=== PATIENT | female | born 1940 | race Caucasian/White ===

== ENCOUNTER 2017-02-02 14:20 | Emergency (ER) | payer MEDICARE, OTHER ==
--- NOTE | 2017-02-02 15:34 | EDM.PDOC ---
ED HPI GENERAL MEDICAL PROBLEM - General Chief Complaint: Abdominal Pain Stated Complaint: KIDNEY ISSUES Time Seen by Provider: 02/02/17 14:40 Source of Information: Reports: Patient, Family History Limitations: Reports: No Limitations - History of Present Illness INITIAL COMMENTS - FREE TEXT/NARRATIVE: 77-year-old female started on an antibiotic 2 days ago for a urinary tract infection is having some persistent dysuria and a full sensation to her bladder. No fevers or chills, no nausea or vomiting. She was complaining to her family today so they brought her in for an evaluation. A culture of the urine is pending. They also thought they saw some bleeding from either the perineal area or rectum or vaginal, they weren't sure. 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: Psychiatric History: Reports: Alzheimers Disease, Anxiety, Dementia, Depression Endocrine/Metabolic History: Reports: Hypothyroidism Social & Family History - Tobacco Use Smoking Status *Q: Unknown Ever Smoked ED ROS GENERAL - Review of Systems Review Of Systems: See Below Constitutional: Denies: Fever, Chills HEENT: Reports: Other (Very hard of hearing) Respiratory: Denies: Shortness of Breath GI/Abdominal: Reports: Abdominal Pain, Distension : Reports: Dysuria, Frequency, Urgency Musculoskeletal: Reports: Back Pain (Chronic and recurring, midline) Skin: Reports: No Symptoms Neurological: Reports: Confusion, Other (Hard of hearing) ED EXAM, GI/ABD - Physical Exam Exam: See Below Exam Limited By: No Limitations General Appearance: Alert, No Apparent Distress Respiratory/Chest: No Respiratory Distress, Lungs Clear GI/Abdominal Exam: Soft, Other (Some mild discomfort to palpation in the suprapubic area, no bladder distention) Neurological: Alert, Oriented, No Motor/Sensory Deficits Psychiatric: Normal Affect, Normal Mood Skin Exam: Warm, Dry Course - Vital Signs Last Recorded V/S: Last Vital Signs Temp 96.9 F 02/02/17 16:27 Pulse 56 L 02/02/17 16:27 Resp 15 02/02/17 16:27 BP 103/66 02/02/17 16:27 Pulse Ox 97 02/02/17 16:27 - Orders/Labs/Meds Labs: Laboratory Tests 02/02/17 02/02/17 02/02/17 Range/Units 15:20 15:42 15:42 WBC 5.7 (4.5-11.0) K/uL RBC 4.13 (3.30-5.50) M/uL Hgb 12.3 (12.0-15.0) g/dL Hct 35.6 L (36.0-48.0) % MCV 86 (80-98) fL MCH 30 (27-31) pg MCHC 35 (32-36) % Plt Count 291 (150-400) K/uL Neut % (Auto) 51 (36-66) % Lymph % (Auto) 31 (24-44) % [place] % (Auto) 12 H (2-6) % Eos % (Auto) 6 H (2-4) % Baso % (Auto) 1 (0-1) % Sodium 129 L (140-148) mmol/L Potassium 3.7 (3.6-5.2) mmol/L Chloride 96 L (100-108) mmol/L Carbon Dioxide 28 (21-32) mmol/L Anion Gap 8.7 (5.0-14.0) mmol/L BUN 9 (7-18) mg/dL Creatinine 0.8 (0.6-1.0) mg/dL Est Cr Clr Drug Dosing 42.76 mL/min Estimated GFR (MDRD) > 60 (>60) Glucose 83 (74-106) mg/dL Calcium 8.6 (8.5-10.1) mg/dL Urine Color Yellow Urine Appearance Clear Urine pH 6.5 (4.5-8.0) Ur Specific [place] 1.015 (1.008-1.030) Urine Protein Negative (NEGATIVE) mg/dL Urine Glucose (UA) Normal (NEGATIVE) mg/dL Urine Ketones Negative (NEGATIVE) mg/dL Urine Occult Blood Moderate (NEGATIVE) Urine Nitrite Negative (NEGATIVE) Urine Bilirubin Negative (NEGATIVE) Urine Urobilinogen 1 (NORMAL) mg/dL Ur Leukocyte Esterase Negative (NEGATIVE) Urine RBC 10-20 H (0-5) Urine WBC Not seen (0-5) Ur Epithelial Cells Rare Amorphous Sediment Moderate Urine Bacteria Moderate Urine Mucus Not seen - Re-Assessments/Exams Free Text/Narrative Re-Assessment/Exam: 02/02/17 16:16 A mini catheter UA was obtained, there was no active bleeding around the urethra or bleeding from the vaginal area. A speculum or vaginal exam was not done. The UA did have 10-20 RBCs per high-power field and some bacteria, no white cells or inflammatory response seen. White count was normal. 02/02/17 16:17 BMP was also reassuring with normal kidney function. I asked the patient to give her antibiotic a few more days, gave her some Pyridium to take every 8 hours for bladder spasm and we'll see her back within 48-72 hours if not improving. Departure - Departure Time of Disposition: 16:33 Disposition: Home, Self-Care 01 Condition: Fair Clinical Impression: Dysuria Abdominal pain Qualifiers: Abdominal location: lower abdomen, unspecified Qualified Code(s): R10.30 - Lower abdominal pain, unspecified - Discharge Information Instructions: Urinary Tract Infection, Adult Referrals: PCP,None [Primary Care Provider] - Forms: ED Department Discharge Care Plan Goals: Continue your antibiotic for at least 2 more days, and use Pyridium as directed for bladder spasm and urgency. Recheck in 2-3 days if not improving satisfactorily, or return sooner if worsening such as fever or increased pain.
[2017-02-02 16:29] VITALS: BP 103/66
== END 2017-02-02 16:34 | disposition home or self-care (01) ==
LOC: JP.ED 14:20
DX: R30.0 Dysuria (principal); R10.30 Lower abdominal pain, unspecified; J44.9 Chronic obstructive pulmonary disease, unspecified; G30.9 Alzheimer's disease, unspecified; F02.80 Dementia in other diseases classified elsewhere, unspecified severity, without behavioral disturbance, psychotic disturbance, mood disturbance, and anxiety; F41.9 Anxiety disorder, unspecified; F32.9 Major depressive disorder, single episode, unspecified; E03.9 Hypothyroidism, unspecified; Z91.040 Latex allergy status
CPT/HCPCS: 36415; 80048; 81001; 85025; 99283; 99284

== ENCOUNTER 2017-02-10 16:09 | Emergency (ER) | payer MEDICARE, OTHER ==
[2017-02-10] MEDS ORDERED: Sodium Chloride 0.9% 1,000 ML IV STA (16:53)
[2017-02-10] MEDS ORDERED: Sodium Chloride 0.9% 10 ML Syringe FLUSH PRN (16:53)
--- NOTE | 2017-02-10 17:03 | EDM.PDOC ---
ED HPI GENERAL MEDICAL PROBLEM - General Chief Complaint: Abdominal Pain Stated Complaint: BLADDER CAME FORM [facility] Time Seen by Provider: 02/10/17 16:26 Source of Information: Reports: Patient, Family, Old Records, Provider, RN Notes Reviewed History Limitations: Reports: Physical Impairment (Dementia) - History of Present Illness INITIAL COMMENTS - FREE TEXT/NARRATIVE: 77-year-old female presents emergency department today for ongoing pelvic and back pain she also is more confused than baseline. She was initially evaluated by her primary care provider and sent to the ED emergency department for further evaluations. 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: Neurological History: Reports: Other (See Below) (Dementia) Psychiatric History: Reports: Alzheimers Disease, Anxiety, Dementia, Depression Endocrine/Metabolic History: Reports: Hypothyroidism Social & Family History - Tobacco Use Smoking Status *Q: Unknown Ever Smoked ED ROS GENERAL - Review of Systems Review Of Systems: Unable To Obtain (Difficult to obtain secondary to dementia) ED EXAM, GI/ABD - Physical Exam Exam: See Below Exam Limited By: Physical Impairment General Appearance: Alert, No Apparent Distress Eyes: Bilateral: Normal Appearance Head: Normocephalic, Other (Does have edema and tenderness right occipital region) Neck: Normal Inspection, Supple, Non-Tender, Full Range of Motion Respiratory/Chest: No Respiratory Distress, Normal Breath Sounds, Decreased Breath Sounds Cardiovascular: No Murmur, Irregularly Irregular GI/Abdominal Exam: Soft, Non-Tender Extremities: Non-Tender, No Pedal Edema Course - Vital Signs Last Recorded V/S: Last Vital Signs Temp 97.7 F 02/10/17 16:31 Pulse 57 L 02/10/17 18:29 Resp 16 02/10/17 18:29 BP 131/70 02/10/17 18:29 Pulse Ox 97 02/10/17 18:29 - Orders/Labs/Meds Orders: Active Orders 24 hr Category Date Time Status Peripheral IV Care [RC] . DIRECTED Care 02/10/17 16:56 Active Abdomen Pelvis w Cont [CT] Urgent Exams 02/10/17 16:53 Taken Head wo Cont [CT] Stat Exams 02/10/17 16:57 Taken Iopamidol [Isovue-300 (61%)] Med 02/10/17 17:07 Active 63 ml IV . DIRECTED PRN Sodium Chloride 0.9% [Saline Flush] Med 02/10/17 16:53 Active 10 ml FLUSH ASDIRECTED PRN Peripheral IV Insertion Adult [OM.PC] Urgent Oth 02/10/17 16:53 Ordered Medication Orders Iopamidol (Isovue-300 (61%)) 63 ml IV . DIRECTED PRN PRN Reason: RADIOLOGY EXAM Stop: 02/11/17 17:08 Last Admin: 02/10/17 17:36 Dose: 100 ml Sodium Chloride (Saline Flush) 10 ml FLUSH ASDIRECTED PRN PRN Reason: Keep Vein Open Last Admin: 02/10/17 17:48 Dose: 10 ml Labs: Laboratory Tests 02/10/17 02/10/17 02/10/17 Range/Units 17:07 17:07 17:07 WBC 5.3 (4.5-11.0) K/uL RBC 3.99 (3.30-5.50) M/uL Hgb 11.8 L (12.0-15.0) g/dL Hct 34.4 L (36.0-48.0) % MCV 86 (80-98) fL MCH 30 (27-31) pg MCHC 34 (32-36) % Plt Count 326 (150-400) K/uL Neut % (Auto) 52 (36-66) % Lymph % (Auto) 30 (24-44) % [place] % (Auto) 12 H (2-6) % Eos % (Auto) 6 H (2-4) % Baso % (Auto) 1 (0-1) % Sodium 127 L (140-148) mmol/L Potassium 3.4 L (3.6-5.2) mmol/L Chloride 91 L (100-108) mmol/L Carbon Dioxide 31 (21-32) mmol/L Anion Gap 8.4 (5.0-14.0) mmol/L BUN 5 L (7-18) mg/dL Creatinine 0.6 (0.6-1.0) mg/dL Est Cr Clr Drug Dosing TNP Estimated GFR (MDRD) > 60 (>60) Glucose 91 (74-106) mg/dL Lactic Acid 1.0 (0.4-2.0) mmol/L Calcium 8.4 L (8.5-10.1) mg/dL Total Bilirubin 0.8 (0.2-1.0) mg/dL AST 24 (15-37) U/L ALT 19 (12-78) U/L Alkaline Phosphatase 83 (46-116) U/L Total Protein 6.3 L (6.4-8.2) g/dL Albumin 3.0 L (3.4-5.0) g/dL Globulin 3.3 (2.3-3.5) g/dL Albumin/Globulin Ratio 0.9 L (1.2-2.2) Lipase 138 (73-393) U/L Urine Color Urine Appearance Urine pH (4.5-8.0) Ur Specific [place] (1.008-1.030) Urine Protein (NEGATIVE) mg/dL Urine Glucose (UA) (NEGATIVE) mg/dL Urine Ketones (NEGATIVE) mg/dL Urine Occult Blood (NEGATIVE) Urine Nitrite (NEGATIVE) Urine Bilirubin (NEGATIVE) Urine Urobilinogen (NORMAL) mg/dL Ur Leukocyte Esterase (NEGATIVE) Urine RBC (0-5) Urine WBC (0-5) Ur Epithelial Cells Amorphous Sediment Urine Bacteria Urine Mucus 02/10/17 Range/Units 18:29 WBC (4.5-11.0) K/uL RBC (3.30-5.50) M/uL Hgb (12.0-15.0) g/dL Hct (36.0-48.0) % MCV (80-98) fL MCH (27-31) pg MCHC (32-36) % Plt Count (150-400) K/uL Neut % (Auto) (36-66) % Lymph % (Auto) (24-44) % [place] % (Auto) (2-6) % Eos % (Auto) (2-4) % Baso % (Auto) (0-1) % Sodium (140-148) mmol/L Potassium (3.6-5.2) mmol/L Chloride (100-108) mmol/L Carbon Dioxide (21-32) mmol/L Anion Gap (5.0-14.0) mmol/L BUN (7-18) mg/dL Creatinine (0.6-1.0) mg/dL Est Cr Clr Drug Dosing Estimated GFR (MDRD) (>60) Glucose (74-106) mg/dL Lactic Acid (0.4-2.0) mmol/L Calcium (8.5-10.1) mg/dL Total Bilirubin (0.2-1.0) mg/dL AST (15-37) U/L ALT (12-78) U/L Alkaline Phosphatase (46-116) U/L Total Protein (6.4-8.2) g/dL Albumin (3.4-5.0) g/dL Globulin (2.3-3.5) g/dL Albumin/Globulin Ratio (1.2-2.2) Lipase (73-393) U/L Urine Color Yellow Urine Appearance Clear Urine pH 7.0 (4.5-8.0) Ur Specific [place] 1.005 L (1.008-1.030) Urine Protein Negative (NEGATIVE) mg/dL Urine Glucose (UA) Normal (NEGATIVE) mg/dL Urine Ketones Negative (NEGATIVE) mg/dL Urine Occult Blood Moderate (NEGATIVE) Urine Nitrite Negative (NEGATIVE) Urine Bilirubin Negative (NEGATIVE) Urine Urobilinogen Normal (NORMAL) mg/dL Ur Leukocyte Esterase Negative (NEGATIVE) Urine RBC 5-10 H (0-5) Urine WBC 0-5 (0-5) Ur Epithelial Cells Rare Amorphous Sediment Not seen Urine Bacteria Few Urine Mucus Few Meds: Medications Generic Name Dose Route Start Last Admin Trade Name Freq PRN Reason Stop Dose Admin Iopamidol 63 ml 02/10/17 17:07 02/10/17 17:36 Isovue-300 (61%) IV 02/11/17 17:08 100 ml . DIRECTED PRN Administration RADIOLOGY EXAM Sodium Chloride 10 ml 02/10/17 16:53 02/10/17 17:48 Saline Flush FLUSH 10 ml ASDIRECTED PRN Administration Keep Vein Open Discontinued Medications Generic Name Dose Route Start Last Admin Trade Name Freq PRN Reason Stop Dose Admin Sodium Chloride 1,000 mls @ 500 mls/hr 02/10/17 16:53 02/10/17 17:47 Normal Saline IV 08/14/17 18:52 500 mls/hr .BOLUS STA Administration Sodium Chloride 74 mls @ 3 mls/sec 02/10/17 17:15 02/10/17 17:36 Normal Saline IV 02/10/17 17:16 3 mls/sec ASDIRECTED WIN Administration Departure - Departure Time of Disposition: 19:00 Disposition: Home, Self-Care 01 Condition: Fair Clinical Impression: Sacral fracture Qualifiers: Encounter type: initial encounter Zone of sacrum fracture: unspecified portion of sacrum Fracture type: closed Qualified Code(s): S32.10XA - Unspecified fracture of sacrum, initial encounter for closed fracture - Discharge Information Forms: ED Department Discharge Additional Instructions: Use tramadol as needed for pain control for your fracture, recommend physical therapy in the assisted living center, please discuss with your primary care provider the need of colonoscopy, follow-up with your primary care in 5-7 days for evaluation call return to the emergency department with worsening of symptoms - My Orders Last 24 Hours: My Active Orders 02/10/17 16:53 Abdomen Pelvis w Cont [CT] Urgent Sodium Chloride 0.9% [Saline Flush] 10 ml FLUSH ASDIRECTED PRN Peripheral IV Insertion Adult [OM.PC] Urgent 02/10/17 16:56 Peripheral IV Care [RC] . DIRECTED 02/10/17 16:57 Head wo Cont [CT] Stat 02/10/17 17:07 Iopamidol [Isovue-300 (61%)] 63 ml IV . DIRECTED PRN - Assessment/Plan Last 24 Hours: My Active Orders 02/10/17 16:53 Abdomen Pelvis w Cont [CT] Urgent Sodium Chloride 0.9% [Saline Flush] 10 ml FLUSH ASDIRECTED PRN Peripheral IV Insertion Adult [OM.PC] Urgent 02/10/17 16:56 Peripheral IV Care [RC] . DIRECTED 02/10/17 16:57 Head wo Cont [CT] Stat 02/10/17 17:07 Iopamidol [Isovue-300 (61%)] 63 ml IV . DIRECTED PRN Plan: Assessment Acuity = acute Site and laterality = sacral fracture minimally displaced, thickening of sigmoid colon circumferential of unclear etiology, cocaine the patient with known history of dementia Etiology = sacral fracture secondary to fall Manifestations = pain Location of injury = Home Lab values = hemoglobin 11.8 consistent normochromic anemia sodium low at 127 consistent hyponatremia potassium low at 3.4 consistent hypokalemia albumin low at 3.[address] scan of the head was negative for any acute process CT scan of the abdomen describes the sacral fracture as well as the thickening of the sigmoid colon Plan I did review lab work and CT scan results with family they're going to discuss the need for colonoscopy with the family in contact primary care as needed for her sacral fracture recommending physical therapy at the assisted living center and tramadol for pain Patient was in agreement with the plan all questions were answered, they were instructed to return to the emergency department or call for worsening symptoms. This note was dictated using [email or web address] voice recognition software please call with any questions.
[2017-02-10] MEDS ORDERED: Iopamidol 612 MG/ML 100 ML Bottle IV PRN (17:07)
[2017-02-10 18:29] VITALS: BP 131/70
== END 2017-02-10 19:28 | disposition home or self-care (01) ==
LOC: JP.ED 16:09
DX: S32.10XA Unspecified fracture of sacrum, initial encounter for closed fracture (principal); J44.9 Chronic obstructive pulmonary disease, unspecified; G30.9 Alzheimer's disease, unspecified; F02.80 Dementia in other diseases classified elsewhere, unspecified severity, without behavioral disturbance, psychotic disturbance, mood disturbance, and anxiety; F41.9 Anxiety disorder, unspecified; F32.9 Major depressive disorder, single episode, unspecified; E03.9 Hypothyroidism, unspecified; Z91.040 Latex allergy status; W19.XXXA Unspecified fall, initial encounter
CPT/HCPCS: 36415; 70450; 74177; 80053; 81001; 83605; 83690; 85025; 96360; 96361; 99284; J7030; J7040; J7050; Q9967

== ENCOUNTER 2017-02-11 12:03 | Emergency (ER) | payer MEDICARE, OTHER ==
--- NOTE | 2017-02-11 15:15 | EDM.PDOC ---
[id number] [id number] NOT FEELING WELL Time Seen by Provider: 02/11/17 13:15 Source of Information: Reports: Patient, Correction Records History Limitations: Reports: No Limitations - History of Present Illness INITIAL COMMENTS - FREE TEXT/NARRATIVE: pt fell and ended up with a fracture in the sacrum. She was seen by Dr Officer yesterday. She was transfered from the assisted living to the shelter for care. She has a history of frequent infections. Onset: Today, Other (pt felt like her bladder was very full and she was uncomfortable with that. ) Duration: Hour(s):, Other ( She felt like her voiding was not as frequent. 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 ) : Reports: Urinary Retention Musculoskeletal: Reports: No Symptoms Skin: Reports: No Symptoms Neurological: Reports: Confusion ED EXAM, GENERAL - Physical Exam Exam: See Below Free Text/Narrative:: pt arrived concerned with pressure over her bladder. She was found to have a sacral fracture yesterday. Her bladder was scanned and she had 600-700 cc in her bladder. She got up on the commode and she was able to void nearly that amount. Her abdoman is no less tender. Exam Limited By: Other (pt is a poor historian.) General Appearance: Alert, Other ( some confusion) Ears: Normal TMs Nose: Normal Inspection Throat/Mouth: Normal Inspection Head: Atraumatic Neck: Normal Inspection Respiratory/Chest: No Respiratory Distress Cardiovascular: Regular Rate, Rhythm GI/Abdominal: Soft, Non-Tender, Other ( She is tender over the bladder area. ) (Female) Exam: Deferred Rectal (Female) Exam: Deferred Back Exam: Other ( tender over the very low back) Extremities: Normal Inspection Neurological: Alert, Other (pt is mildly confused. ) Course - Vital Signs Last Recorded V/S: Last Vital Signs Temp 36.4 C 02/11/17 14:58 Pulse 65 02/11/17 16:26 Resp 17 02/11/17 16:26 BP 140/72 02/11/17 16:26 Pulse Ox 96 02/11/17 16:26 - Orders/Labs/Meds Labs: Laboratory Tests 02/11/17 02/11/17 02/11/17 Range/Units 13:31 13:31 14:48 WBC 5.4 (4.5-11.0) K/uL RBC 3.92 (3.30-5.50) M/uL Hgb 11.6 L (12.0-15.0) g/dL Hct 34.3 L (36.0-48.0) % MCV 88 (80-98) fL MCH 30 (27-31) pg MCHC 34 (32-36) % Plt Count 332 (150-400) K/uL Neut % (Auto) 66 (36-66) % Lymph % (Auto) 20 L (24-44) % [place] % (Auto) 12 H (2-6) % Eos % (Auto) 2 (2-4) % Baso % (Auto) 1 (0-1) % Sodium 130 L (140-148) mmol/L Potassium 3.6 (3.6-5.2) mmol/L Chloride 95 L (100-108) mmol/L Carbon Dioxide 30 (21-32) mmol/L Anion Gap 8.6 (5.0-14.0) mmol/L BUN 7 (7-18) mg/dL Creatinine 0.5 L (0.6-1.0) mg/dL Est Cr Clr Drug Dosing 63.37 mL/min Estimated GFR (MDRD) > 60 (>60) Glucose 97 (74-106) mg/dL Calcium 8.4 L (8.5-10.1) mg/dL Total Bilirubin 0.7 (0.2-1.0) mg/dL AST 25 (15-37) U/L ALT 20 (12-78) U/L Alkaline Phosphatase 82 (46-116) U/L Total Protein 6.3 L (6.4-8.2) g/dL Albumin 3.0 L (3.4-5.0) g/dL Globulin 3.3 (2.3-3.5) g/dL Albumin/Globulin Ratio 0.9 L (1.2-2.2) Urine Color Yellow Urine Appearance Clear Urine pH 7.0 (4.5-8.0) Ur Specific [place] 1.010 (1.008-1.030) Urine Protein Negative (NEGATIVE) mg/dL Urine Glucose (UA) Normal (NEGATIVE) mg/dL Urine Ketones 15 H (NEGATIVE) mg/dL Urine Occult Blood Moderate (NEGATIVE) Urine Nitrite Negative (NEGATIVE) Urine Bilirubin Negative (NEGATIVE) Urine Urobilinogen Normal (NORMAL) mg/dL Ur Leukocyte Esterase Negative (NEGATIVE) Urine RBC 5-10 H (0-5) Urine WBC 0-5 (0-5) Ur Epithelial Cells Few Amorphous Sediment Not seen Urine Bacteria Few Urine Mucus Not seen Meds: Medications Discontinued Medications Generic Name Dose Route Start Last Admin Trade Name Jarredq PRN Reason Stop Dose Admin Acetaminophen 650 mg 02/11/17 18:04 02/11/17 18:50 Tylenol PO 02/11/17 18:05 650 mg NOW ONE Administration Levofloxacin 250 mg 02/11/17 15:18 02/11/17 16:07 Levaquin PO 02/11/17 15:19 250 mg ONETIME ONE Administration Phenazopyridine HCl 190 mg 02/11/17 18:03 02/11/17 18:50 Urinary Pain Relief PO 02/11/17 18:04 190 mg ONETIME ONE Administration - Re-Assessments/Exams Free Text/Narrative Re-Assessment/Exam: 02/11/17 18:05 pt had a urine that did not look real infected. She has had the feeling she needs to void frquently . She was found to have a sacral fracture yesterday. She did eat some soup and part of a sandwich. 02/12/17 18:15 pt was placed on levoquin 250 daily until her urine culture returns. Departure - Departure Time of Disposition: 15:23 Disposition: Home, Self-Care 01 Condition: Fair Clinical Impression: Urinary retention, Sacral fracture - Discharge Information Instructions: Acute Urinary Retention, Female, [id number] Referrals: Karen Edouard MD [Primary Care Provider] - Forms: ED Department Discharge Care Plan Goals: encourage fluids, encourage pt to void frequently urine culture pending, levoquin 250 daily until culture is back. Pyridium 100mg tid for 2 days for bladder pain
[2017-02-11] MEDS ORDERED: Levofloxacin 250 MG Tab PO ONE (15:18)
[2017-02-11 16:27] VITALS: BP 140/72
[2017-02-11] MEDS ORDERED: Phenazopyridine 95 MG Tab PO ONE (18:03)
[2017-02-11] MEDS ORDERED: Acetaminophen 325 MG Tab PO ONE (18:04)
== END 2017-02-11 19:04 | disposition home or self-care (01) ==
LOC: JP.ED 12:03
DX: R33.9 Retention of urine, unspecified (principal); S32.10XA Unspecified fracture of sacrum, initial encounter for closed fracture; J44.9 Chronic obstructive pulmonary disease, unspecified; G30.9 Alzheimer's disease, unspecified; F02.80 Dementia in other diseases classified elsewhere, unspecified severity, without behavioral disturbance, psychotic disturbance, mood disturbance, and anxiety; F41.9 Anxiety disorder, unspecified; F32.9 Major depressive disorder, single episode, unspecified; E03.9 Hypothyroidism, unspecified; Z91.040 Latex allergy status; W19.XXXA Unspecified fall, initial encounter
CPT/HCPCS: 36415; 51798; 80053; 81001; 85025; 87086; 99284; A9270; 99283

== ENCOUNTER 2017-02-17 07:29 | Day surgery (SDC) | payer MEDICARE, OTHER ==
[2017-02-17] MEDS ORDERED: Lactated Ringers 1,000 ML IV SCH (07:30)
[2017-02-17] MEDS ORDERED: fentaNYL 100 MCG/2 ML SDV ONE (08:01)
[2017-02-17] MEDS ORDERED: Midazolam 1 MG/ML 2 ML SDV ONE (08:01)
[2017-02-17] MEDS ORDERED: Propofol 200 MG/20 ML SDV ONE (08:01)
[2017-02-17 11:16] VITALS: BP 105/61
--- NOTE | 2017-02-18 07:45 | OR ---
DATE OF PROCEDURE: 02/17/2017 PREOPERATIVE DIAGNOSIS: Abnormal CAT scan, thickened sigmoid. POSTOPERATIVE DIAGNOSIS: Abnormal CAT scan, thickened sigmoid, and colitis at rectosigmoid. PROCEDURE: Colonoscopy to the cecum with biopsy of rectosigmoid at about 10 cm from the anal verge. ANESTHESIA: IV anesthesia with monitored anesthesia care. INDICATIONS: This 77-year-old white female had some abdominal pain last week. She had a CAT scan which showed a thickened distal sigmoid. A recommendation was for a colonoscopy. Her last colonoscopic exam apparently was done 2 to 3 years ago in what sounds like at [place], [place]. I counseled her in the presence of her daughter for the procedure including risks and alternatives, and they gave their informed consent to proceed. DESCRIPTION OF PROCEDURE: The patient was placed in the left lateral decubitus position. IV anesthesia was administered by the Anesthesia Service. Time-out was held. A rectal exam was performed, which was unremarkable. The flexible video Olympus colonoscope was introduced through her anus, up her rectum, and out her colon all the way to the cecum. Once the cecum was reached, the scope was slowly withdrawn, examining the mucosa throughout. The prep was fairly poor. No mucosal abnormalities were noted until we reached the rectosigmoid area. Here we saw a thickened colon with erythema suggestive of colitis. We obtained multiple biopsies of this area about 10 cm from the anal verge. The scope was retroflexedin the rectum with the most distal rectum appearing unremarkable. The scope was straightened and removed. She tolerated the procedure well. Poncho Armijo MD /[id number]
== END 2017-02-17 11:10 | disposition home or self-care (01) ==
LOC: JP.SDS 07:29
PROVIDERS: ATTEND Surgery
DX: K51.90 Ulcerative colitis, unspecified, without complications (principal); J44.9 Chronic obstructive pulmonary disease, unspecified; E03.9 Hypothyroidism, unspecified; F41.9 Anxiety disorder, unspecified; F32.9 Major depressive disorder, single episode, unspecified; Z91.040 Latex allergy status; Z98.890 Other specified postprocedural states
CPT/HCPCS: 45380; 88305; J2704; J3010; J7120; J2250

== ENCOUNTER 2017-02-27 08:44 | Emergency (ER) | payer MEDICARE, OTHER ==
--- NOTE | 2017-02-27 09:31 | EDM.PDOC ---
ED HPI GENERAL MEDICAL PROBLEM - General Chief Complaint: Gastrointestinal Problem Stated Complaint: NAUSA Time Seen by Provider: 02/27/17 09:05 Source of Information: Reports: EMS, Long-Term Records History Limitations: Reports: Other (Chronic confusion) - History of Present Illness INITIAL COMMENTS - FREE TEXT/NARRATIVE: 77-year-old correction patient, DNR/DNI developed emesis overnight and the nursing staff felt it looked "coffee ground" so sent her in for evaluation. She had one emesis in route, EMS crew did not have the impression it was blood. She still has some nausea and mild discomfort at this time but is otherwise stable. She feels like her abdomen has "pressure", no dysuria, no significant discomfort. No respiratory symptoms. Onset: Gradual (Developed overnight) Location: Reports: Abdomen Severity: Mild Associated Symptoms: Reports: Nausea/Vomiting. Denies: Chest Pain, Cough, Fever /Chills, Shortness of Breath Lower Abdominal Pain Score (Numeric/FACES): 3 - Related Data Allergies Allergy/AdvReac Type Severity Reaction Status Date / Time Latex, Natural Rubber Allergy Other Verified 02/17/17 07:50 Home Meds: Home Meds Acetaminophen [Tylenol Extra Strength] 500 mg PO Q6H PRN 02/14/17 [History] Albuterol [Ventolin HFA] 2 puff IH Q6H PRN 02/14/17 [History] Albuterol/Ipratropium [DuoNeb 3.0-0.5 MG/3 ML] 3 ml IH Q4H PRN 02/14/17 [History ] Aspirin [Children's Aspirin] 81 mg PO DAILY 02/14/17 [History] Biotin 5,000 mcg PO DAILY 02/14/17 [History] Calcium Carbonate/Vitamin D3 [Calcium 500 + Vit D Caplet] 1 tab PO BID 02/14/17 [History] Donepezil HCl [Aricept] 10 mg PO BEDTIME 02/14/17 [History] Fluticasone/Salmeterol [Advair Diskus 100-50] 1 puff INH BID 02/14/17 [History] L.acidoph,Paracasei, B.lactis [Probiotic] 1 tab PO BID 02/14/17 [History] Levothyroxine [Synthroid] 75 mcg PO ACBREAKFAST 02/14/17 [History] Mirtazapine [Remeron] 15 mg PO BEDTIME 02/14/17 [History] Sertraline [Zoloft] 25 mg PO DAILY 02/14/17 [History] Acetaminophen [Tylenol Extra Strength] 500 mg PO Q6H PRN 02/17/17 [History] Multivitamin [Multiple Vitamins] 1 tab PO BID 02/17/17 [History] Promethazine Hcl [IJD: Promethazine] 25 mg PO Q6H 02/17/17 [History] traMADol HCl [Tramadol HCl] 100 mg PO Q4H PRN 02/17/17 [History] Polyethylene Glycol 3350 [MiraLAX] 17 g PO ASDIRECTED PRN 02/27/17 [History] metroNIDAZOLE [Metronidazole] 250 mg PO TID 02/27/17 [History] Past Medical History HEENT History: Reports: Hard of Hearing, Impaired Vision Respiratory History: Reports: COPD Gastrointestinal History: Reports: Diverticulosis, GI Bleed, Other (See Below) Other Gastrointestinal History: colitis Other Genitourinary History: 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 SPECIALIST History: Reports: Musculoskeletal History: Reports: Other (See Below) Other Musculoskeletal History: osteopenia Neurological History: Reports: Other (See Below) Other Neuro History: mild cognitive Psychiatric History: Reports: Alzheimers Disease, Anxiety, Dementia, Depression Endocrine/Metabolic History: Reports: Hypothyroidism - Infectious Disease History Infectious Disease History: Reports: Chicken Pox, Measles - Past Surgical History HEENT Surgical History: Reports: Cataract Surgery GI Surgical History: Reports: Colonoscopy Social & Family History - Family History Family Medical History: Noncontributory - Tobacco Use Smoking Status *Q: Never Smoker Second Hand Smoke Exposure: No - Caffeine Use Caffeine Use: Reports: Coffee - Recreational Drug Use Recreational Drug Use: No ED ROS GENERAL - Review of Systems Review Of Systems: See Below Constitutional: Reports: Malaise. Denies: Fever, Chills HEENT: Reports: No Symptoms Respiratory: Denies: Shortness of Breath Cardiovascular: Denies: Chest Pain GI/Abdominal: Reports: Abdominal Pain (Pressure), Nausea, Vomiting. Denies: Diarrhea Skin: Reports: No Symptoms Neurological: Reports: No Symptoms ED EXAM, GENERAL - Physical Exam Exam: See Below Exam Limited By: No Limitations General Appearance: Alert, No Apparent Distress Eye Exam: Bilateral Eye: EOMI (No jaundice) Respiratory/Chest: No Respiratory Distress, Lungs Clear Cardiovascular: Regular Rate, Rhythm GI/Abdominal: Normal Bowel Sounds, No Distention, Tender (Patient acts uncomfortable with palpation across the lower abdomen, no guarding) Rectal (Female) Exam: Other (Rectal exam revealed a moderate rectal prolapse which was reduced easily. Digital exam revealed no stool in the colon and no active bleeding). No: Fecal Impaction Extremities: No: Pedal Edema Neurological: Alert Psychiatric: Normal Affect, Normal Mood Skin Exam: Warm, Dry Course - Vital Signs Last Recorded V/S: Last Vital Signs Temp 98.1 F 02/27/17 08:57 Pulse 74 02/27/17 11:12 Resp 16 02/27/17 11:12 BP 115/65 02/27/17 11:12 Pulse Ox 98 02/27/17 11:12 - Orders/Labs/Meds Labs: Laboratory Tests 02/27/17 02/27/17 Range/Units 09:25 09:25 WBC 5.1 (4.5-11.0) K/uL RBC 3.70 (3.30-5.50) M/uL Hgb 11.0 L (12.0-15.0) g/dL Hct 34.4 L (36.0-48.0) % MCV 93 (80-98) fL MCH 30 (27-31) pg MCHC 32 (32-36) % Plt Count 310 (150-400) K/uL Neut % (Auto) 65 (36-66) % Lymph % (Auto) 19 L (24-44) % White % (Auto) 10 H (2-6) % Eos % (Auto) 5 H (2-4) % Baso % (Auto) 1 (0-1) % Sodium 140 (140-148) mmol/L Potassium 4.1 (3.6-5.2) mmol/L Chloride 105 (100-108) mmol/L Carbon Dioxide 30 (21-32) mmol/L Anion Gap 5.0 (5.0-14.0) mmol/L BUN 8 (7-18) mg/dL Creatinine 0.6 (0.6-1.0) mg/dL Est Cr Clr Drug Dosing 52.26 mL/min Estimated GFR (MDRD) > 60 (>60) Glucose 97 (74-106) mg/dL Calcium 8.6 (8.5-10.1) mg/dL Total Bilirubin 0.4 (0.2-1.0) mg/dL AST 22 (15-37) U/L ALT 18 (12-78) U/L Alkaline Phosphatase 94 (46-116) U/L Total Protein 6.0 L (6.4-8.2) g/dL Albumin 2.9 L (3.4-5.0) g/dL Globulin 3.1 (2.3-3.5) g/dL Albumin/Globulin Ratio 0.9 L (1.2-2.2) - Re-Assessments/Exams Free Text/Narrative Re-Assessment/Exam: 02/27/17 09:31 CBC, CMP were obtained as well as a flat and upright abdomen. 02/27/17 10:18 Labs were unremarkable other than the hemoglobin slowly falling over the past month. Chemistry profile was normal. Flat and upright abdomen showed no sign of obstruction. The rectal prolapse was reduced without problem. It was discovered the patient was already scheduled for an abdominal ultrasound today because of ongoing urologic symptoms. The patient herself just wanted to go back home and didn't want any more tests. 02/27/17 10:53 Patient again tried to have a bowel movement and again experienced a prolapsed rectum. She wanted to try to reduce it herself, and I discussed this with surgery as well as her family. Reducing the prolapse when it recurs is reasonable treatment for the problem, but the patient and her family can meet with Dr. Caballero next week to discuss options and treatment expectations. She was discharged to get her abdominal ultrasound and ankle x-ray as ordered by another policy specialist. Departure - Departure Time of Disposition: 11:25 Disposition: DC/Tfer to [facility] Condition: Fair Clinical Impression: Rectal prolapse, Abdominal pain Nausea and vomiting Qualifiers: Vomiting type: unspecified Vomiting Intractability: non-intractable Qualified Code(s): R11.2 - Nausea with vomiting, unspecified - Discharge Information Instructions: Rectal Prolapse, Adult Referrals: PCP,None [Primary Care Provider] - Forms: ED Department Discharge Care Plan Goals: Reduce prolapse when it recurs, and recheck with Dr. Caballero next week to discuss treatment options.
--- NOTE | 2017-02-27 09:59 | CR ---
Abdomen 2V AP Flat Upright HISTORY: pain COMPARISON: CT scan 02/10/2017. FINDINGS: Bowel gas pattern is nonobstructive. No free air. No suspicious calcifications. Degenerativ e change and mild curvature of the lower lumbar spine. Impression: Negative abdomen.
[2017-02-27 11:13] VITALS: BP 115/65
== END 2017-02-27 11:25 ==
LOC: JP.ED 08:44
DX: K62.3 Rectal prolapse (principal); R11.2 Nausea with vomiting, unspecified; J44.9 Chronic obstructive pulmonary disease, unspecified; G30.9 Alzheimer's disease, unspecified; F02.80 Dementia in other diseases classified elsewhere, unspecified severity, without behavioral disturbance, psychotic disturbance, mood disturbance, and anxiety; F41.9 Anxiety disorder, unspecified; F32.9 Major depressive disorder, single episode, unspecified; Z98.49 Cataract extraction status, unspecified eye; Z79.82 Long term (current) use of aspirin; Z79.899 Other long term (current) drug therapy; Z91.040 Latex allergy status; M25.571 Pain in right ankle and joints of right foot; M25.471 Effusion, right ankle; R10.2 Pelvic and perineal pain; R39.89 Other symptoms and signs involving the genitourinary system
CPT/HCPCS: 36415; 73610-26-RT; 73610-RT; 74020; 74020-26; 76856; 76856-26; 80053; 85025; 99284; 99285

== ENCOUNTER 2017-05-08 09:47 | Inpatient (IN) | payer MEDICARE, OTHER ==
[2017-05-08] MEDS: Sodium Chloride 0.9% 1,000 ML IV SCH ×2 (11:09→16:22)
[2017-05-08] MEDS ORDERED: Glycopyrrolate 0.2 MG/ML 5 ML MDV ONE (11:16)
[2017-05-08] MEDS ORDERED: Ondansetron 4 MG/2 ML SDV ONE (11:16)
[2017-05-08] MEDS ORDERED: Propofol 200 MG/20 ML SDV ONE (11:16)
[2017-05-08] MEDS ORDERED: fentaNYL 250 MCG/5 ML SDV ONE (11:16)
[2017-05-08] MEDS ORDERED: Neostigmine Methylsulfate 1 MG/ML 5 ML Syringe ONE (11:16)
[2017-05-08] MEDS ORDERED: Dexamethasone 4 MG/ML SDV ONE (11:16)
[2017-05-08] MEDS ORDERED: Rocuronium 50 MG/5 ML Vial ONE (11:16)
[2017-05-08] MEDS ORDERED: metroNIDAZOLE/Normal Saline 500 MG in Premix Bag 1 BAG IV ONE (12:00)
[2017-05-08] MEDS ORDERED: ceFAZolin 2 GM in Sodium Chloride 0.9% 50 ML IV ONE (12:00)
[2017-05-08] MEDS ORDERED: ceFAZolin 2 GM in Premix Bag 1 BAG IV ONE (12:00)
[2017-05-08] MEDS ORDERED: fentaNYL/Normal Saline 600 MCG/30 ML PCA Vial IV PRN (12:30)
[2017-05-08] MEDS ORDERED: Naloxone 0.4 MG/ML SDV IV PRN (12:34)
[2017-05-08] MEDS ORDERED: Ketorolac 60 MG/2 ML SDV ONE (13:23)
[2017-05-08] MEDS ORDERED: Bupivacaine 0.5%/EPINEPHrine 1:200,000 50 ML MDV ONE (13:32)
[2017-05-08] MEDS ORDERED: diphenhydrAMINE 50 MG/ML SDV IVPUSH PRN (15:04)
[2017-05-08] MEDS ORDERED: Benzocaine/Cetylpyridinium/Menthol Lozenge MUCMEM PRN (15:04)
[2017-05-08] MEDS ORDERED: hydrOXYzine HCl 100 MG/2 ML SDV IM PRN (15:04)
[2017-05-08] MEDS ORDERED: Promethazine 25 MG/ML SDV IM PRN (15:04)
[2017-05-08] MEDS ORDERED: Sodium Chloride 0.9% 250 ML IV SCH (19:00)
[2017-05-08] MEDS: ceFAZolin 2 GM in Sodium Chloride 0.9% 50 ML IV SCH (20:16)
[2017-05-08] MEDS: Acetaminophen 1,000 MG in Premix Bag 1 BAG IV PRN (23:08)
[2017-05-09] MEDS ORDERED: Sodium Chloride 0.9% 250 ML IV SCH (02:15)
[2017-05-09] MEDS: Sodium Chloride 0.9% 1,000 ML IV SCH ×2 (05:03→19:09)
[2017-05-09] MEDS ORDERED: ceFAZolin 1 GM Vial ONE (05:04)
[2017-05-09] MEDS: ceFAZolin 2 GM in Sodium Chloride 0.9% 50 ML IV SCH (05:07)
[2017-05-09] MEDS ORDERED: Scopolamine 1.5 MG Transdermal Patch TRDERM PRN (08:30)
--- NOTE | 2017-05-09 09:04 | PN ---
DATE OF SERVICE: 05/09/2017 SUBJECTIVE: The patient is doing well. She is still pleasantly confused, which is her baseline. No nausea, vomiting, shortness of breath, or chest pain. There is reported of a small bowel movement. The patient denies passing gas, but due to the patient's confusion, this may or may not be accurate. OBJECTIVE: VITAL SIGNS: Stable. Temperature 99.3, blood pressure 140/86, pulse 66, respirations 18, 98% on room air. CARDIOVASCULAR: Regular rhythm and rate. RESPIRATORY: Lungs are clear to consultation bilaterally. ABDOMEN: Nondistended. Dressings are intact. LABORATORY DATA: Laboratory results show hemoglobin of 10.1. Basic metabolic panel is normal. ASSESSMENT: Status post colon resection. PLAN: 1. Hematology. Hemoglobin is stable, not actively bleeding. We will recheck hemoglobin on a p.r.n. basis. 2. Infectious disease. White blood cell count is elevated with elevated consistent with postoperative state/atelectasis. We will have the patient, the patient's family, and staff instructed on aggressive incentive spirometry. 3. Diet. We will start some Ensure. We will work on Entereg today. 4. General disposition. Need to ambulate the patient at least twice daily. 5. Urine output. Urine output is still marginal. We will continue Hayden catheter until this reaches adequate stage, which will probably in the next 24 hours. 6. Prophylaxis. The patient is to start on Lovenox, SCDs, ambulation, incentive spirometry, and early dietary initiation. 7. Discharge. Discharge planning along with physical therapy had been consulted to facilitate ambulation and early discharge. Сергей Caballero MD /[id number]
[2017-05-09] MEDS: Acetaminophen 1,000 MG in Premix Bag 1 BAG IV PRN (09:52)
[2017-05-09] MEDS: Enoxaparin 40 MG/0.4 ML Syringe SUBCUT SCH (09:52)
[2017-05-09] MEDS: Docusate Sodium 100 MG Cap PO SCH ×2 (09:53→20:12)
[2017-05-10] MEDS: Docusate Sodium 100 MG Cap PO SCH ×2 (08:27→21:31)
[2017-05-10] MEDS: Enoxaparin 40 MG/0.4 ML Syringe SUBCUT SCH (08:28)
[2017-05-10] MEDS: Acetaminophen 325 MG Tab PO PRN ×3 (11:01→21:29)
[2017-05-10] MEDS: traMADol 50 MG Tab PO PRN ×3 (11:02→21:31)
[2017-05-11] MEDS: Acetaminophen 325 MG Tab PO PRN ×4 (04:08→19:41)
[2017-05-11] MEDS: traMADol 50 MG Tab PO PRN ×4 (04:09→19:41)
[2017-05-11] MEDS: Enoxaparin 40 MG/0.4 ML Syringe SUBCUT SCH (08:18)
[2017-05-11] MEDS: Docusate Sodium 100 MG Cap PO SCH (08:19)
--- NOTE | 2017-05-11 10:50 | PN ---
DATE OF SERVICE: 05/11/2017 SUBJECTIVE: The patient is doing well. Pain is well controlled. No nausea, shortness of breath, or chest pain. She still remains pleasantly confused. OBJECTIVE: VITAL SIGNS: Stable. Temperature 97.9, blood pressure 124/85, pulse 62, respirations 16, 100% on room air. CARDIOVASCULAR: Regular rhythm and rate. RESPIRATORY: Lungs clear to auscultation bilaterally. ABDOMEN: Bowel sounds are positive. ASSESSMENT: Status post sigmoid colon resection. We will continue her diet and activity today and anticipate possible discharge in the a.. Сергей Caballero MD /[id number]
[2017-05-11] MEDS ORDERED: Polyethylene Glycol 3350 Powder 17 GM Packet PO PRN (12:10)
[2017-05-11] MEDS ORDERED: Magnesium Hydroxide 400 MG/5 ML Susp 30 ML Cup PO PRN (12:10)
[2017-05-12] MEDS: traMADol 50 MG Tab PO PRN ×2 (00:59→05:27)
[2017-05-12] MEDS: Acetaminophen 325 MG Tab PO PRN ×2 (01:00→05:27)
[2017-05-12 07:18] VITALS: BP 123/75
[2017-05-12] MEDS: Enoxaparin 40 MG/0.4 ML Syringe SUBCUT SCH (08:18)
--- NOTE | 2017-05-12 10:48 | OR ---
DATE OF PROCEDURE: 05/08/2017 PROCEDURE: 1. Resection of sigmoid colon, open (47156). 2. Enteropexy of the rectum (78874). COMPLICATIONS: None. OPTICAL WORKER: None. ANESTHESIA: General/local. INDICATIONS: A pleasant 77-year-old female who is pleasantly confused and has a rectal prolapse that is becoming quite bothersome. Nonoperative techniques have been attempted. With conjunction/multiple discussions with the patient's family, they have decided to proceed on rectal prolapse surgery. The patient would undergo rectopexy of the ventral type using Vicryl mesh. PROCEDURE IN DETAIL: The patient was placed in supine position. An infraumbilical midline abdominal incision was performed. This was performed with a 15 blade followed with electrocautery. Nimco clamps were used to elevate the abdomen, AND this was entered sharply. No evidence of enterotomy or injury was noted. The patient had a very large redundant sigmoid colon obviously leading to her symptoms. This would be mobilized and transected at the rectal reflection. This was transected by the blue load staplers, after creating a mesenteric window defect. White load owen were used to transect the omentum, and it was noted that the mesentery was transected close to the bowel to preserve the maximum of the vascular arcade. The anastomosis would then be created using an EEA 25 mm anastomotic system. The anvil was placed within the proximal aspect of the colon and then transected using blue load stapler and then brought through in the middle aspect of the colon. An EEA stapler was then used and passed transrectally under careful advancement, and then the EEA stapler was fired. This was fired by advancing until the green was noted, firing, and then rotating in reverse direction 1 1/2 and then gently removing. Both donuts were noted. The anastomosis was mildly reinforced with Vicryl sutures. The mesenteric defect was also closed with interrupted sutures. Careful attention was made not to cause ischemia by taking care of the vascular arcade. This process was executed using the standard techniques, which included mobilizing the rectum anterior, but not posterolaterally, in the standard fashion, and the anterior wall of the rectum would be sutured to the mesh and then affixed to the sacral promontory using interrupted non-dissolvable stitches x6 total. Of note, the posterolateral vascular arcades were not resected to facilitate immobilization and to maximize vascular survivability. Also of note, the splenic flexure was not mobilized during this procedure nor significant mobilization of the descending colon. This was also not performed due to techniques to prevent recurrence. Furthermore, the mesh was approximately 5 cm and tensionless anastomosis standard techniques were also performed. Once this completed, the abdomen was thoroughly irrigated. Tisseel was placed around the anastomosis. The fascia was reapproximated and it was closed with #1 Vicryl running x2. The subcutaneous tissues were closed with 3-0 Vicryl and owen were performed. The patient tolerated the procedure well. Сергей Caballero MD /[id number]
--- NOTE | 2017-05-24 09:54 | PN ---
DATE OF SERVICE: 05/12/2017 SUBJECTIVE: The patient is doing very well. Pleasantly confused which is her baseline. She is having bowel movements. No nausea, vomiting, shortness of breath, or chest pain. OBJECTIVE: VITAL SIGNS: Stable. CARDIOVASCULAR: Regular rhythm and rate. RESPIRATORY: Lungs clear to auscultation bilaterally. ABDOMEN: Incision is healing well. ASSESSMENT: Status post sigmoid colon resection. PLAN: The patient will be discharged today. Please see discharge note for further details. Сергей Caballero MD /[id number]
--- NOTE | 2017-05-24 10:09 | DISCH ---
DISCHARGE DIAGNOSIS: Status post sigmoid colon resection. RISKS: Risks, benefits, alternatives, limitations including, but not limited to infection, bleeding, anastomotic leaks, septic shock, and other risks were explained to the patient and her family. I did discuss with her and her family that there can be high failure rate with this procedure. However, they understand these risks and wished to proceed. SUMMARY OF HOSPITAL COURSE: A pleasant 77-year-old female who had underwent a sigmoid colon resection with pexy due to rectal prolapse The patient underwent uneventful sigmoid colon resection with pexy. She continued to advance on her diet. Prior to discharge, her pain is well controlled. She had no nausea, vomiting, shortness of breath, or chest pain. FOLLOWUP: Follow up with Surgery in 7 to 14 days. ACTIVITY: No lifting greater than 30 pounds x30 days. DISCHARGE MEDICATIONS: Please see MAR. However, we will keep this limited with her narcotics due to her . However, pain is well controlled with simple p.o. pain medications.
--- NOTE | 2017-06-04 08:11 | PN ---
DATE OF SERVICE: 05/10/2017 SUBJECTIVE: The patient is doing well. Pain is well controlled. No nausea, vomiting, shortness of breath, or chest pain. OBJECTIVE: VITAL SIGNS: Stable. Temperature 97.6, blood pressure 135/64, pulse 70, respirations 18, 97% on room air. CARDIOVASCULAR: Regular rhythm and rate. RESPIRATORY: Lungs clear to auscultation bilaterally. ABDOMEN: Bowel sounds are positive. ASSESSMENT: Status post sigmoid colon resection. PLAN: We will continue to work on increasing diet and activity. The patient still remains her baseline confused, but this is not worsened in any manner. We also work on discharge. Сергей Caballero MD /[id number]
== END 2017-05-12 10:23 | disposition home or self-care (01) | DRG 331 ==
LOC: JP.SDS 09:47 → JP.MS 09:47 → EDSTATUS 16:00
PROVIDERS: ADMIT Surgery; ATTEND Surgery
PROC: 0DBN0ZZ Excision of Sigmoid Colon, Open Approach (ICD-10-PCS; principal; 2017-05-08)
PROC: 0DSP0ZZ Reposition Rectum, Open Approach (ICD-10-PCS; 2017-05-08)
DX: K62.3 Rectal prolapse (principal); E03.9 Hypothyroidism, unspecified; J44.9 Chronic obstructive pulmonary disease, unspecified; Z87.11 Personal history of peptic ulcer disease; Z87.891 Personal history of nicotine dependence; G30.1 Alzheimer's disease with late onset; F02.80 Dementia in other diseases classified elsewhere, unspecified severity, without behavioral disturbance, psychotic disturbance, mood disturbance, and anxiety; Z91.040 Latex allergy status; Z79.82 Long term (current) use of aspirin
CPT/HCPCS: 36415; 80048; 85027; 88307; 93005; 94762; 97162-GP; 97530-GP; A9270-GY; C1781; J0131; J0690; J1100; J1650; J1885; J2405; J2704; J2710; J3010; J7040; J7050

== ENCOUNTER 2018-07-03 07:02 | Inpatient (IN) | payer MEDICARE, OTHER ==
[2018-07-03] MEDS ORDERED: ceFAZolin 2 GM in Premix Bag 1 BAG IV ONE (07:30)
[2018-07-03] MEDS ORDERED: metroNIDAZOLE/Normal Saline 500 MG in Premix Bag 1 BAG IV ONE (07:30)
[2018-07-03] MEDS ORDERED: fentaNYL 250 MCG/5 ML SDV ONE (08:27)
[2018-07-03] MEDS ORDERED: Propofol 200 MG/20 ML SDV ONE (08:27)
[2018-07-03] MEDS ORDERED: Naloxone 0.4 MG/ML SDV IVPUSH PRN (08:27)
[2018-07-03] MEDS ORDERED: Neostigmine Methylsulfate 1 MG/ML 5 ML Syringe ONE (08:27)
[2018-07-03] MEDS ORDERED: Ondansetron 4 MG/2 ML SDV ONE (08:27)
[2018-07-03] MEDS ORDERED: Glycopyrrolate 0.2 MG/ML 5 ML MDV ONE (08:27)
[2018-07-03] MEDS ORDERED: Dexamethasone 4 MG/ML SDV ONE (08:27)
[2018-07-03] MEDS ORDERED: Rocuronium 50 MG/5 ML Vial ONE (08:27)
[2018-07-03] MEDS ORDERED: Sodium Chloride 0.9% 10 ML ONE (08:28)
[2018-07-03] MEDS: Sodium Chloride 0.9% 1,000 ML IV SCH ×2 (08:53→12:53)
[2018-07-03] MEDS ORDERED: Metoclopramide 10 MG/2 ML SDV IV PRN (09:18)
[2018-07-03] MEDS ORDERED: Ondansetron 4 MG Tab.DIS PO PRN (09:18)
[2018-07-03] MEDS ORDERED: Scopolamine 1.5 MG Transdermal Patch TOP ONE ×2 (09:18)
[2018-07-03] MEDS ORDERED: Albuterol/Ipratropium 3.0-0.5 MG/3 ML Neb Soln NEB PRN (09:18)
[2018-07-03] MEDS ORDERED: metroNIDAZOLE/Normal Saline 500 MG in Premix Bag 1 BAG IV SCH (09:30)
[2018-07-03] MEDS ORDERED: ceFAZolin 2 GM in Premix Bag 1 BAG IV SCH (10:00)
[2018-07-03] MEDS ORDERED: Scopolamine 1.5 MG Transdermal Patch ONE (10:07)
[2018-07-03] MEDS: fentaNYL 1,250 MCG in Sodium Chloride 0.9% 225 ML EPIDUR SCH (12:23)
[2018-07-03] MEDS: metroNIDAZOLE/Normal Saline 500 MG in Premix Bag 1 BAG IV SCH (15:54)
[2018-07-03] MEDS: ceFAZolin 2 GM in Premix Bag 1 BAG IV SCH (17:06)
[2018-07-03] MEDS: Acetaminophen 325 MG Tab PO SCH ×2 (17:44→22:30)
[2018-07-03] MEDS ORDERED: Meperidine PF 50 MG/ML Syringe IM ONE (18:00)
--- NOTE | 2018-07-03 19:09 | OR ---
DATE OF PROCEDURE: 07/03/2018 PROCEDURE: 1. Resection of the sigmoid colon, (89366). 2. Enteropexy of the rectum ([id number]). COMPLICATIONS: None. ANESTHETIC: General/epidural. INDICATIONS: A pleasant 78-year-old female, who is presently confused and has recurrent rectal prolapse that has been bothersome, as she again has failed nonoperative techniques that were attempted. In conjunction with multiple discussions, the patient's family decided to proceed with rectal prolapse surgery. We discussed the multiple options and they have selected sigmoid colon resection with rectopexy. PROCEDURE IN DETAIL: The patient was placed in supine position. An infraumbilical midline incision was performed. This incision was going through the previous incision, as this was performed with a #15 blade followed by electrocautery. A Nimco clamp was used to elevate the abdomen and this was entered sharply. No evidence of enterotomy or injuries noted during entry. The patient's sigmoid colon was identified and the previous mesh was also identified in this area. This would be again used to pexy the colon. The mobilization continued in the sigmoid colon and of the rectum itself. Careful attention was to leave the lateral stalk during the dissection to prevent iatrogenic constipation. Mcguire load staplers were used in close proximity to the sigmoid colon to preserve the vascular arcade. The anastomosis would then be created using a 25 EEA anastomotic system. This was sized with the sizers and then the anvil was placed in the proximal colon and transected using a wade-load stapler. This was then brought to the middle aspect of the colon. The EEA stapler was then used and passed transrectally under careful advancement and this was then set to green and subsequently fired. This was then rotated reverse. Once rotation and then gently removing, donuts were noted to be intact. A colonoscope was introduced in the anastomosis and a small amount of bleeding, but no evidence of other abnormality. The mesenteric defect was then closed with interrupted sutures. As the mobilization had occurred prior to resection of attention to the pexy part, this was then stitched anteriorly and to the sacrum itself. This was stitched in conjunction with mesh to the anterior abdominal wall. Again careful attention was made not to interact with the posterolateral vascular arcades. During this procedure, careful attention was made to make a tensionless anastomosis, which was also reinforced with sutures. The abdomen was thoroughly irrigated. Tisseel was placed around the anastomosis. The fascia was reapproximated with #1 Vicryl sutures x2. The subcutaneous tissues were approximated with 3-0 Vicryl and the skin was stapled. The patient tolerated the procedure well. Сергей Caballero MD /[id number]
[2018-07-03] MEDS ORDERED: Meperidine PF 25 MG/ML Syringe ONE ×2 (22:52→22:58)
[2018-07-04] MEDS: metroNIDAZOLE/Normal Saline 500 MG in Premix Bag 1 BAG IV SCH ×2
[2018-07-04] MEDS: diphenhydrAMINE 50 MG/ML SDV IVPUSH PRN ×2 (00:01→22:19)
[2018-07-04] MEDS: ceFAZolin 2 GM in Premix Bag 1 BAG IV SCH (01:48)
[2018-07-04] MEDS: Acetaminophen 325 MG Tab PO SCH ×7 (03:04→21:42)
[2018-07-04] MEDS: fentaNYL 1,250 MCG in Sodium Chloride 0.9% 225 ML EPIDUR SCH (04:06)
[2018-07-04] MEDS: Sodium Chloride 0.9% 1,000 ML IV SCH ×2 (05:26→18:43)
[2018-07-04] MEDS ORDERED: Celecoxib 200 MG Cap PO SCH (09:00)
[2018-07-04] MEDS: Celecoxib 200 MG Cap PO SCH (09:47)
[2018-07-04] MEDS ORDERED: Ondansetron 4 MG Tab.DIS PO PRN (10:11)
[2018-07-04] MEDS ORDERED: Albuterol 8 GM Inhaler INH PRN (10:13)
[2018-07-04] MEDS ORDERED: Albuterol/Ipratropium 3.0-0.5 MG/3 ML Neb Soln INH PRN (10:13)
[2018-07-04] MEDS ORDERED: Dextrose 5%-Lactated Ringers 1,000 ML IV SCH (10:15)
[2018-07-04] MEDS ORDERED: Sennosides 8.6 MG Tab PO SCH (10:15)
[2018-07-04] MEDS ORDERED: MULTIVITAMIN PO SCH (10:15)
--- NOTE | 2018-07-04 11:15 | PN ---
DATE OF SERVICE: 07/04/2018 SUBJECTIVE: The patient remains status quo, which is pleasantly confused. No specific concerns overnight from the staff. Unable to assess if the patient is having bowel movements or passing gas due to confusion. OBJECTIVE: VITAL SIGNS: Stable. Temperature 97.7, blood pressure 98/46, respirations 17, pulse 68. CARDIOVASCULAR: Regular rhythm and rate. RESPIRATORY: Lungs clear to auscultation bilaterally. ABDOMEN: Bowel sounds positive. Dressing intact. LABORATORY RESULTS: Show a hemoglobin of 10.3. No specific concerns for bleeding at this time. ASSESSMENT AND PLAN: Continue the protocol for postoperative day one. If the patient continues to do well, anticipate discharge in the next 48 hours. Сергей Caballero MD /[id number]
[2018-07-04] MEDS: Magnesium Hydroxide 400 MG/5 ML Susp 30 ML Cup PO SCH (11:28)
[2018-07-04] MEDS: Docusate Sodium 100 MG Cap PO SCH ×2 (11:28→21:41)
[2018-07-04] MEDS: Multivitamins with Iron/Calcium/Folic Acid/Minerals Tab PO SCH ×2 (11:28→21:41)
[2018-07-04] MEDS ORDERED: Non-Formulary Medication 1 Each (Fluticasone/Salmeterol [Advair Diskus 100-50] 1 PUFF) INH SCH (21:00)
[2018-07-04] MEDS: Donepezil 10 MG Tab PO SCH (21:41)
[2018-07-04] MEDS: Trospium 20 MG Tab PO SCH (21:42)
[2018-07-04] MEDS: Mirtazapine 15 MG Tab PO SCH (21:42)
[2018-07-04] MEDS: Formoterol/Mometasone 100-5 MCG 8.8 GM Inhaler IH SCH ×2 (21:42→21:56)
[2018-07-05] MEDS: Acetaminophen 325 MG Tab PO SCH ×2 (02:48→05:54)
[2018-07-05] MEDS ORDERED: Levothyroxine 50 MCG Tab PO SCH (07:30)
[2018-07-05] MEDS ORDERED: Morphine 2 MG/ML Syringe IVPUSH PRN (07:41)
[2018-07-05] MEDS: Formoterol/Mometasone 100-5 MCG 8.8 GM Inhaler IH SCH ×2 (07:53→20:45)
[2018-07-05] MEDS: Multivitamins with Iron/Calcium/Folic Acid/Minerals Tab PO SCH ×2 (08:17→20:46)
[2018-07-05] MEDS: Celecoxib 200 MG Cap PO SCH (08:17)
[2018-07-05] MEDS: Docusate Sodium 100 MG Cap PO SCH ×2 (08:18→21:25)
[2018-07-05] MEDS: Trospium 20 MG Tab PO SCH ×2 (08:18→20:46)
[2018-07-05] MEDS: Magnesium Hydroxide 400 MG/5 ML Susp 30 ML Cup PO SCH (08:18)
[2018-07-05] MEDS: Levothyroxine 100 MCG Tab PO SCH (08:18)
[2018-07-05] MEDS: Sodium Chloride 0.9% 1,000 ML IV SCH (08:48)
[2018-07-05] MEDS ORDERED: Ibuprofen 600 MG Tab PO SCH (10:00)
[2018-07-05] MEDS: Acetaminophen/HYDROcodone 325-5 MG Tab PO PRN ×2 (11:18→16:27)
[2018-07-05] MEDS: Ibuprofen 600 MG Tab PO SCH ×2 (14:14→21:34)
[2018-07-05] MEDS: Acetaminophen 325 MG Tab PO PRN (20:41)
[2018-07-05] MEDS: Donepezil 10 MG Tab PO SCH (20:45)
[2018-07-05] MEDS: Mirtazapine 15 MG Tab PO SCH (20:45)
[2018-07-06] MEDS: Acetaminophen 325 MG Tab PO PRN (03:26)
[2018-07-06] MEDS: Formoterol/Mometasone 100-5 MCG 8.8 GM Inhaler IH SCH ×2 (07:41→21:06)
[2018-07-06] MEDS: Levothyroxine 100 MCG Tab PO SCH (07:44)
[2018-07-06] MEDS: Ibuprofen 600 MG Tab PO SCH ×3 (07:44→21:05)
[2018-07-06] MEDS: Multivitamins with Iron/Calcium/Folic Acid/Minerals Tab PO SCH ×2 (08:45→21:06)
[2018-07-06] MEDS: Trospium 20 MG Tab PO SCH ×2 (08:45→21:07)
[2018-07-06] MEDS: Magnesium Hydroxide 400 MG/5 ML Susp 30 ML Cup PO SCH (08:46)
[2018-07-06] MEDS: Docusate Sodium 100 MG Cap PO SCH ×2 (08:46→21:06)
[2018-07-06] MEDS: Acetaminophen/HYDROcodone 325-5 MG Tab PO PRN ×3 (11:38→21:35)
[2018-07-06] MEDS: Mirtazapine 15 MG Tab PO SCH (21:06)
[2018-07-06] MEDS: Donepezil 10 MG Tab PO SCH (21:07)
[2018-07-07] MEDS: Formoterol/Mometasone 100-5 MCG 8.8 GM Inhaler IH SCH (07:47)
[2018-07-07] MEDS: Ibuprofen 600 MG Tab PO SCH (07:49)
[2018-07-07] MEDS: Levothyroxine 100 MCG Tab PO SCH (07:49)
[2018-07-07 08:10] VITALS: BP 122/64
[2018-07-07] MEDS: Trospium 20 MG Tab PO SCH (09:39)
[2018-07-07] MEDS: Multivitamins with Iron/Calcium/Folic Acid/Minerals Tab PO SCH (09:39)
[2018-07-07] MEDS: Magnesium Hydroxide 400 MG/5 ML Susp 30 ML Cup PO SCH (09:39)
[2018-07-07] MEDS: Docusate Sodium 100 MG Cap PO SCH (09:39)
[2018-07-07] MEDS: Acetaminophen/HYDROcodone 325-5 MG Tab PO PRN (09:40)
--- NOTE | 2018-07-07 09:56 | DISCH ---
DISCHARGE DIAGNOSIS: Status post sigmoid colon resection. SUMMARY OF HOSPITAL COURSE: A pleasant 78-year-old female who has rectal prolapse, recurrent sigmoid colon resection. The patient did very well during this hospitalization. Her pain was well controlled. She had no nausea, vomiting, shortness of breath, or chest pain. She had a slightly elevated troponin. However, in review with the hospitalist service, it was felt not to further evaluate this as the patient's pain was abdominal in nature. FOLLOWUP: With Surgery in 7 to 14 days. ACTIVITY: No lifting greater than 10 pounds. PLAN: The instructions were given to the staff as the patient is confused at baseline. However, her confusion/dementia is unchanged during this hospitalization.
--- NOTE | 2018-07-07 10:02 | PN ---
DATE OF SERVICE: 07/07/2018 SUBJECTIVE: The patient is doing very well. Pain is well controlled. No nausea, vomiting, shortness of breath, or chest pain. OBJECTIVE: VITAL SIGNS: Vital signs are stable. CARDIOVASCULAR: Regular rhythm and rate. RESPIRATORY: Lungs are clear to auscultation bilaterally. ABDOMEN: Incision healing well. ASSESSMENT: Status post colon resection. PLAN: The patient will be discharged today. We discussed diet, activity, followup with the nursing staff as the patient is confused. Сергей Caballero MD /[id number]
--- NOTE | 2018-07-09 08:50 | PN ---
DATE OF SERVICE: 07/06/2018 SUBJECTIVE: The patient continues to improve. No nausea, vomiting, shortness of breath, or chest pain. The patient is having bowel movements. OBJECTIVE: VITAL SIGNS: Stable. CARDIOVASCULAR: Regular rhythm and rate. RESPIRATORY: Lungs are clear to auscultation bilaterally. ABDOMEN: Incision healing well. ASSESSMENT: Status post sigmoid colon resection. PLAN: We will advance diet and work on discharge and general disposition. Сергей Caballero MD /[id number]
--- NOTE | 2018-07-09 09:11 | PN ---
DATE OF SERVICE: 07/05/2018 SUBJECTIVE: The patient is doing very well. Pain is well controlled. She has no nausea, vomiting, shortness of breath, or chest pain. She is starting to possibly pass gas; however, it is difficult to assess since the patient has baseline confusion. OBJECTIVE: VITAL SIGNS: Stable. CARDIOVASCULAR: Regular rate. RESPIRATORY: Lungs clear to auscultation bilaterally. ABDOMEN: Incision healing well. ASSESSMENT AND PLAN: Status post small bowel resection. Continue to wait GI function. Continue same diet plan. Сергей Caballero MD /[id number]
== END 2018-07-07 10:50 | disposition home or self-care (01) | DRG 331 ==
LOC: JP.SDSSCHI 07:02 → JP.SDS 07:02 → EDSTATUS 07:30 → JP.MS 09:18
PROVIDERS: ADMIT Surgery; ATTEND Surgery
PROC: 0DBN0ZX Excision of Sigmoid Colon, Open Approach, Diagnostic (ICD-10-PCS; principal; 2018-07-03)
PROC: 0DSP0ZZ Reposition Rectum, Open Approach (ICD-10-PCS; 2018-07-03)
PROC: 0DJD7ZZ Inspection of Lower Intestinal Tract, Via Natural or Artificial Opening (ICD-10-PCS; 2018-07-03)
DX: K62.3 Rectal prolapse (principal); G30.1 Alzheimer's disease with late onset; F02.80 Dementia in other diseases classified elsewhere, unspecified severity, without behavioral disturbance, psychotic disturbance, mood disturbance, and anxiety; E03.9 Hypothyroidism, unspecified; J44.9 Chronic obstructive pulmonary disease, unspecified; F32.9 Major depressive disorder, single episode, unspecified; F41.9 Anxiety disorder, unspecified; H91.90 Unspecified hearing loss, unspecified ear; Z87.891 Personal history of nicotine dependence; Z83.71 Family history of colonic polyps
CPT/HCPCS: 36415; 51702; 80048; 80053; 82553; 83880; 84484; 85025; 88307; 93005; 94640; 97110-GP; 97162-GP; 97530-GP; 97535-GP; A9270-GY; J0690; J1100; J1200; J2270; J2405; J2704; J2710; J3010; J3490; J7030; J7050

== ENCOUNTER 2018-07-09 16:31 | Inpatient (IN) | payer MEDICARE, OTHER ==
[2018-07-09] MEDS ORDERED: Sodium Chloride 0.9% 1,000 ML IV SCH ×2 (16:45→18:00)
--- NOTE | 2018-07-09 16:52 | EDM.PDOC ---
ED HPI GENERAL MEDICAL PROBLEM - General Chief Complaint: Gastrointestinal Problem Stated Complaint: MEDICAL VIA [facility] Time Seen by Provider: 07/09/18 16:54 Source of Information: Reports: Patient History Limitations: Reports: No Limitations - History of Present Illness INITIAL COMMENTS - FREE TEXT/NARRATIVE: pt arrived from [facility] having sig bleeding. She just had surgery for a rectal prolapse. She started oassing large clots this afternoon and that has been persitent. She does appear pale, Onset: Today, Sudden, Other ( She started bleeding this afternoon. ) Duration: Hour(s): Location: Reports: Abdomen Associated Symptoms: Reports: Weakness - Related Data Allergies Allergy/AdvReac Type Severity Reaction Status Date / Time Latex, Natural Rubber Allergy Rash Verified 07/09/18 18:15 Home Meds: Home Meds Albuterol [Ventolin HFA] 2 puff IH Q6H PRN 02/14/17 [History] Albuterol/Ipratropium [DuoNeb 3.0-0.5 MG/3 ML] 3 ml IH Q4H PRN 02/14/17 [History ] Aspirin [Children's Aspirin] 81 mg PO DAILY 02/14/17 [History] Donepezil HCl [Aricept] 10 mg PO BEDTIME 02/14/17 [History] Fluticasone/Salmeterol [Advair Diskus 100-50] 1 puff INH BID 02/14/17 [History] L.acidoph,Paracasei, B.lactis [Probiotic] 1 tab PO BID 02/14/17 [History] Levothyroxine [Synthroid] 100 mcg PO ACBREAKFAST 02/14/17 [History] Mirtazapine [Remeron] 45 mg PO BEDTIME 02/14/17 [History] Multivitamin [Multiple Vitamins] 1 tab PO BID 02/17/17 [History] traMADol HCl [Tramadol HCl] 50 mg PO TID PRN 02/17/17 [History] Polyethylene Glycol 3350 [MiraLAX] 17 g PO ASDIRECTED PRN 02/27/17 [History] Magnesium Hydroxide [Milk of Magnesia] 30 ml PO DAILY 05/06/17 [History] Acetaminophen [Tylenol Extra Strength] 500 mg PO Q6HR PRN 07/02/18 [History] Trospium Chloride 20 mg PO BID 07/02/18 [History] Hydrocortisone [Preparation H] 26 gm TP QID 07/03/18 [History] Sennosides [Senna] 8.6 mg PO ASDIRECTED 07/03/18 [History] Past Medical History HEENT History: Reports: Hard of Hearing, Impaired Vision Respiratory History: Reports: COPD Gastrointestinal History: Reports: Diverticulosis, GI Bleed, Other (See Below) Other Gastrointestinal History: colitis Genitourinary History: Reports: Urinary Incontinence Other Genitourinary History: [employer] History: Reports: Musculoskeletal History: Reports: Other (See Below) Other Musculoskeletal History: osteopenia Neurological History: Reports: Alzheimers Disease, Other (See Below) Other Neuro History: mild cognitive Psychiatric History: Reports: Alzheimers Disease, Anxiety, Dementia, Depression Endocrine/Metabolic History: Reports: Hypothyroidism - Infectious Disease History Infectious Disease History: Reports: Chicken Pox, Measles - Past Surgical History HEENT Surgical History: Reports: Cataract Surgery GI Surgical History: Reports: Colonoscopy Social & Family History - Family History Family Medical History: Noncontributory - Tobacco Use Smoking Status *Q: Unknown Ever Smoked Second Hand Smoke Exposure: No - Caffeine Use Caffeine Use: Reports: None - Recreational Drug Use Recreational Drug Use: No ED ROS GENERAL - Review of Systems Review Of Systems: See Below Constitutional: Reports: Weakness HEENT: Reports: No Symptoms Respiratory: Reports: No Symptoms Cardiovascular: Reports: No Symptoms Endocrine: Reports: No Symptoms GI/Abdominal: Reports: Other (Pt arrived with ahistory of recent sugery for rectal prolapse. She has been passing clots and a large amount of blood. ) ED EXAM, GI/ABD - Physical Exam Exam: See Below Text/Narrative:: pt arrived being quite pale and passing a large amount of blood. She has passed some large clots. Exam Limited By: No Limitations General Appearance: Alert, Mild Distress, Other (pt is not having severe pain) Ears: Normal TMs Nose: Normal Inspection Throat/Mouth: Normal Inspection Head: Atraumatic Neck: Normal Inspection Respiratory/Chest: No Respiratory Distress Cardiovascular: Regular Rate, Rhythm GI/Abdominal Exam: Soft, Non-Tender (Female) Exam: Other (pt had surgery for a rectal prolapse and she is getting up and down to go to the Br frequently. ) Rectal (Female) Exam: Deferred Back Exam: Normal Inspection Extremities: Normal Inspection Neurological: Alert, Oriented, Normal Cognition Psychiatric: Normal Affect Course - Vital Signs Last Recorded V/S: Last Vital Signs Temp 36.2 C 07/12/18 07:00 Pulse 53 L 07/12/18 07:00 Resp 16 07/12/18 07:00 BP 139/64 07/12/18 07:00 Pulse Ox 98 07/12/18 07:00 - Orders/Labs/Meds Labs: Laboratory Tests 07/09/18 07/09/18 07/09/18 Range/Units 17:14 17:14 17:14 WBC 7.5 (4.5-11.0) K/uL RBC 4.21 (3.30-5.50) M/uL Hgb 12.1 (12.0-15.0) g/dL Hct 36.9 (36.0-48.0) % MCV 88 (80-98) fL MCH 29 (27-31) pg MCHC 33 (32-36) % Plt Count 428 H (150-400) K/uL Neut % (Auto) 64 (36-66) % Lymph % (Auto) 16 L (24-44) % [place] % (Auto) 10 H (2-6) % Eos % (Auto) 9 H (2-4) % Baso % (Auto) 1 (0-1) % APTT (27.0-36.0) sec Sodium 138 L (140-148) mmol/L Potassium 3.3 L (3.6-5.2) mmol/L Chloride 97 L (100-108) mmol/L Carbon Dioxide 34 H (21-32) mmol/L Anion Gap 10.3 (5.0-14.0) mmol/L BUN 9 (7-18) mg/dL Creatinine 0.7 (0.6-1.0) mg/dL Est Cr Clr Drug Dosing TNP Estimated GFR (MDRD) > 60 (>60) Glucose 105 (74-106) mg/dL Calcium 9.4 (8.5-10.1) mg/dL Total Bilirubin 0.4 (0.2-1.0) mg/dL AST 25 (15-37) U/L ALT 23 (12-78) U/L Alkaline Phosphatase 72 (46-116) U/L Total Protein 6.9 (6.4-8.2) g/dL Albumin 3.1 L (3.4-5.0) g/dL Globulin 3.8 H (2.3-3.5) g/dL Albumin/Globulin Ratio 0.8 L (1.2-2.2) Blood Type A NEGATIVE Gel Antibody Screen Negative Crossmatch See Detail 07/09/18 Range/Units 17:24 WBC (4.5-11.0) K/uL RBC (3.30-5.50) M/uL Hgb (12.0-15.0) g/dL Hct (36.0-48.0) % MCV (80-98) fL MCH (27-31) pg MCHC (32-36) % Plt Count (150-400) K/uL Neut % (Auto) (36-66) % Lymph % (Auto) (24-44) % [place] % (Auto) (2-6) % Eos % (Auto) (2-4) % Baso % (Auto) (0-1) % APTT 29.0 (27.0-36.0) sec Sodium (140-148) mmol/L Potassium (3.6-5.2) mmol/L Chloride (100-108) mmol/L Carbon Dioxide (21-32) mmol/L Anion Gap (5.0-14.0) mmol/L BUN (7-18) mg/dL Creatinine (0.6-1.0) mg/dL Est Cr Clr Drug Dosing Estimated GFR (MDRD) (>60) Glucose (74-106) mg/dL Calcium (8.5-10.1) mg/dL Total Bilirubin (0.2-1.0) mg/dL AST (15-37) U/L ALT (12-78) U/L Alkaline Phosphatase (46-116) U/L Total Protein (6.4-8.2) g/dL Albumin (3.4-5.0) g/dL Globulin (2.3-3.5) g/dL Albumin/Globulin Ratio (1.2-2.2) Blood Type Gel Antibody Screen Crossmatch Meds: Medications Discontinued Medications Generic Name Dose Route Start Last Admin Trade Name Freq PRN Reason Stop Dose Admin Acetaminophen 650 mg 07/11/18 16:18 07/11/18 20:36 Tylenol PO 650 mg Q4H PRN Administration Pain Albuterol 0 gm 07/10/18 10:18 Ventolin Hfa INH Q6H PRN Shortness of Breath Albuterol/Ipratropium 3 ml 07/10/18 10:18 Duoneb 3.0-0.5 Mg/3 Ml INH Q4H PRN Shortness of Breath Diphenhydramine HCl 25 - 50 mg 07/09/18 18:08 Benadryl IVPUSH Q4H PRN Itching Diphenhydramine HCl 25 - 50 mg 07/09/18 18:10 Benadryl PO Q4H PRN Itching Donepezil HCl 10 mg 07/10/18 21:00 07/11/18 20:30 Aricept PO 10 mg BEDTIME WIN Administration Fentanyl 10 - 30 mcg 07/09/18 18:12 Sublimaze IVPUSH Q1H PRN Pain (severe 7-10) Furosemide 10 mg 07/10/18 00:10 07/10/18 01:20 Lasix IVPUSH 07/10/18 00:11 10 mg ONETIME ONE Administration Sodium Chloride 1,000 mls @ 500 mls/hr 07/09/18 16:45 07/09/18 16:58 Normal Saline IV 500 mls/hr ASDIRECTED WIN Administration Tranexamic Acid 1,000 mg/ 60 mls @ 200 mls/hr 07/09/18 17:40 07/09/18 17:37 Sodium Chloride IV 07/09/18 17:57 200 mls/hr ONETIME ONE Administration Tranexamic Acid 1,000 mg/ 60 mls @ 200 mls/hr 07/09/18 17:27 07/10/18 20:34 Sodium Chloride IV 07/09/18 17:44 Not Given ONETIME ONE Promethazine HCl 12.5 mg/ 50.5 mls @ 200 mls/hr 07/09/18 17:56 Sodium Chloride IV Q8H PRN Nausea/Vomiting Sodium Chloride 1,000 mls @ 100 mls/hr 07/09/18 18:00 07/09/18 22:53 Normal Saline IV 100 mls/hr ASDIRECTED WIN Administration Sodium Chloride 1,000 mls @ 50 mls/hr 07/10/18 10:30 07/10/18 13:17 Normal Saline IV 07/10/18 17:00 50 mls/hr ASDIRECTED WIN Administration Tranexamic Acid 1,000 mg/ 510 mls @ 83 mls/hr 07/09/18 18:00 07/09/18 18:21 Sodium Chloride IV 07/10/18 00:08 83 mls/hr ONETIME ONE Administration Lactobacillus Rhamnosus 1 cap 07/10/18 10:30 07/12/18 09:19 Culturelle PO 1 cap BID WIN Administration Levothyroxine Sodium 100 mcg 07/10/18 10:30 07/12/18 07:24 Synthroid PO 100 mcg DAILY@0730 WIN Administration Mirtazapine 45 mg 07/10/18 21:00 07/11/18 20:30 Remeron PO 45 mg BEDTIME WIN Administration Mometasone Furoate/Formoterol Fumar 2 puff 07/10/18 10:30 07/12/18 07:17 Dulera 100-5 Mcg IH 2 puff BIDRT WIN Administration Morphine Sulfate 1 - 3 mg 07/09/18 18:11 07/10/18 11:30 Morphine IVPUSH 1 mg Q1H PRN Administration Pain Ondansetron HCl 4 mg 07/09/18 17:56 07/10/18 11:51 Zofran IV 4 mg Q8H PRN Administration Nausea/Vomiting Potassium Chloride 40 meq 07/10/18 13:00 Klor-Con M20 PO 07/10/18 13:01 ONETIME ONE Potassium Chloride 40 meq 07/10/18 11:00 07/10/18 10:56 Klor-Con M20 PO 07/10/18 11:01 40 meq ONETIME ONE Administration Potassium Chloride 40 meq 07/10/18 17:00 07/10/18 17:03 Klor-Con M20 PO 07/10/18 17:01 40 meq ONETIME ONE Administration Scopolamine 1.5 mg 07/09/18 18:06 Transderm-Scop TRDERM Q72H PRN Nausea - Re-Assessments/Exams Free Text/Narrative Re-Assessment/Exam: 07/09/18 17:25 hg is 12.1. She is actively bleeding passing clots. Departure - Departure Time of Disposition: 17:26 Disposition: Admitted As Inpatient 64 Condition: Fair Clinical Impression: Rectal prolapse, Rectal bleeding - Discharge Information
[2018-07-09] MEDS ORDERED: Tranexamic Acid 1,000 MG in Sodium Chloride 0.9% 50 ML IV ONE (17:40)
[2018-07-09] MEDS ORDERED: Ondansetron 4 MG/2 ML SDV IV PRN (17:56)
[2018-07-09] MEDS ORDERED: Promethazine 12.5 MG in Sodium Chloride 0.9% 50 ML IV PRN (17:56)
[2018-07-09] MEDS ORDERED: Tranexamic Acid 1,000 MG in Sodium Chloride 0.9% 500 ML IV ONE (18:00)
[2018-07-09] MEDS ORDERED: Scopolamine 1.5 MG Transdermal Patch TRDERM PRN (18:06)
[2018-07-09] MEDS ORDERED: diphenhydrAMINE 50 MG/ML SDV IVPUSH PRN (18:08)
[2018-07-09] MEDS ORDERED: diphenhydrAMINE 25 MG Cap PO PRN (18:10)
[2018-07-09] MEDS ORDERED: Morphine 2 MG/ML Syringe IVPUSH PRN (18:11)
[2018-07-09] MEDS ORDERED: fentaNYL 100 MCG/2 ML SDV IVPUSH PRN (18:12)
[2018-07-09] MEDS: Tranexamic Acid 1,000 MG in Sodium Chloride 0.9% 50 ML IV ONE (18:20)
[2018-07-10] MEDS ORDERED: Furosemide 20 MG/2 ML VIAL IVPUSH ONE (00:10)
--- NOTE | 2018-07-10 08:06 | HP ---
REASON FOR ADMISSION: GI bleeding. HISTORY OF PRESENT ILLNESS: This is an 78-year-old female, who underwent, on July 03, 2018, a sigmoid colon resection due to rectal prolapse. The patient did very well during that hospitalization. She was having bowel movements without difficulty. No nausea, vomiting, shortness of breath, or chest pain. The patient was baseline confused at that time, which is her normal status. She was discharged to [facility] and subsequently returns with rectal bleeding today. 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 Multiple episodes of rectal prolapse and actually a history of colitis. Suprapubic pain, which is actually causing the patient a full sensation to have a bowel movement or strain. REVIEW OF SYSTEMS: GENERAL: The patient is comfortable. She is confused, which was her baseline. CARDIOVASCULAR: No apparent chest pain. RESPIRATORY: No apparent shortness of breath. GASTROINTESTINAL: No rebound. No distention or tenderness. NEUROLOGICAL: Confused. PSYCH: Unable to assess. The remainder of review of systems reviewed and negative. PHYSICAL EXAMINATION: VITAL SIGNS: Blood pressure 124/82, respirations 16, and pulse 65. HEENT: Pupils are equal. No jaundice. CARDIOVASCULAR: Regular rhythm and rate. RESPIRATORY: Lungs are clear to auscultation bilaterally. ABDOMEN: No distention, no rebound, no guarding. LABORATORY RESULTS: Show a hemoglobin of 12.1. Creatinine is normal at 0.7. ASSESSMENT AND PLAN: Gastrointestinal bleeding. This is most likely due to the patient's repetitive and constant straining. She does have suprapubic pain, which is what has previously determined the patient, due to her confusion, thinks she had to urinate and continues to strain constantly on the toilet, which has undoubtedly strained her anastomosis. We will admit the patient to ICU, start tranexamic acid, plasma, and follow the hemoglobin serially. I discussed with the patient's family the role of hospice, further imaging, blood transfusions, and at this point, we will stick to this plan, as she is a DNR, and this is the current accepted plan. Сергей Caballero MD /[id number]
--- NOTE | 2018-07-10 10:17 | PCM.PN ---
- General Info Date of Service: 07/10/18 Subjective Update: Ms. Beth is an 78-year-old woman who is admitted through the emergency department last night by Dr. Caballero for management of a lower GI bleed. She underwent partial bone resection and repair of rectal prolapse last week. She had done well during the initial postoperative period but began to experience significant lower GI bleeding yesterday. Since admission she's had no further evidence of bleeding and has been transfused 3 units of red blood cells. She is unable provide significant information concerning symptoms or review of systems because of her underlying dementia and confusion. - Patient Data Vitals - Most Recent: Last Vital Signs Temp 98.2 F 07/10/18 07:34 Pulse 66 07/10/18 09:58 Resp 15 07/10/18 09:58 BP 135/79 07/10/18 09:58 Pulse Ox 96 07/10/18 07:34 Weight - Most Recent: 106 lb 8 oz I&O - Last 24 Hours: Intake & Output 07/09/18 07/10/18 07/10/18 22:59 06:59 14:59 Intake Total 0 1413 Output Total 550 1250 50 Balance -550 163 -50 Lab Results Last 24 Hours: Laboratory Results - last 24 hr 07/09/18 07/09/18 07/09/18 Range/Units 17:14 17:14 17:14 WBC 7.5 (4.5-11.0) K/uL RBC 4.21 (3.30-5.50) M/uL Hgb 12.1 (12.0-15.0) g/dL Hct 36.9 (36.0-48.0) % MCV 88 (80-98) fL MCH 29 (27-31) pg MCHC 33 (32-36) % Plt Count 428 H (150-400) K/uL Neut % (Auto) 64 (36-66) % Lymph % (Auto) 16 L (24-44) % [place] % (Auto) 10 H (2-6) % Eos % (Auto) 9 H (2-4) % Baso % (Auto) 1 (0-1) % APTT (27.0-36.0) sec Sodium 138 L (140-148) mmol/L Potassium 3.3 L (3.6-5.2) mmol/L Chloride 97 L (100-108) mmol/L Carbon Dioxide 34 H (21-32) mmol/L Anion Gap 10.3 (5.0-14.0) mmol/L BUN 9 (7-18) mg/dL Creatinine 0.7 (0.6-1.0) mg/dL Est Cr Clr Drug Dosing TNP Estimated GFR (MDRD) > 60 (>60) Glucose 105 (74-106) mg/dL Calcium 9.4 (8.5-10.1) mg/dL Total Bilirubin 0.4 (0.2-1.0) mg/dL AST 25 (15-37) U/L ALT 23 (12-78) U/L Alkaline Phosphatase 72 (46-116) U/L Total Protein 6.9 (6.4-8.2) g/dL Albumin 3.1 L (3.4-5.0) g/dL Globulin 3.8 H (2.3-3.5) g/dL Albumin/Globulin Ratio 0.8 L (1.2-2.2) Blood Type A NEGATIVE Gel Antibody Screen Negative Crossmatch See Detail 07/09/18 07/09/18 07/10/18 Range/Units 17:24 20:50 01:20 WBC (4.5-11.0) K/uL RBC (3.30-5.50) M/uL Hgb 9.9 L D 11.4 L (12.0-15.0) g/dL Hct (36.0-48.0) % MCV (80-98) fL MCH (27-31) pg MCHC (32-36) % Plt Count (150-400) K/uL Neut % (Auto) (36-66) % Lymph % (Auto) (24-44) % [place] % (Auto) (2-6) % Eos % (Auto) (2-4) % Baso % (Auto) (0-1) % APTT 29.0 (27.0-36.0) sec Sodium (140-148) mmol/L Potassium (3.6-5.2) mmol/L Chloride (100-108) mmol/L Carbon Dioxide (21-32) mmol/L Anion Gap (5.0-14.0) mmol/L BUN (7-18) mg/dL Creatinine (0.6-1.0) mg/dL Est Cr Clr Drug Dosing Estimated GFR (MDRD) (>60) Glucose (74-106) mg/dL Calcium (8.5-10.1) mg/dL Total Bilirubin (0.2-1.0) mg/dL AST (15-37) U/L ALT (12-78) U/L Alkaline Phosphatase (46-116) U/L Total Protein (6.4-8.2) g/dL Albumin (3.4-5.0) g/dL Globulin (2.3-3.5) g/dL Albumin/Globulin Ratio (1.2-2.2) Blood Type Gel Antibody Screen Crossmatch 07/10/18 07/10/18 Range/Units 04:31 08:33 WBC (4.5-11.0) K/uL RBC (3.30-5.50) M/uL Hgb 12.8 (12.0-15.0) g/dL Hct (36.0-48.0) % MCV (80-98) fL MCH (27-31) pg MCHC (32-36) % Plt Count (150-400) K/uL Neut % (Auto) (36-66) % Lymph % (Auto) (24-44) % [place] % (Auto) (2-6) % Eos % (Auto) (2-4) % Baso % (Auto) (0-1) % APTT (27.0-36.0) sec Sodium 139 L (140-148) mmol/L Potassium 3.2 L (3.6-5.2) mmol/L Chloride 102 (100-108) mmol/L Carbon Dioxide 30 (21-32) mmol/L Anion Gap 10.2 (5.0-14.0) mmol/L BUN 7 (7-18) mg/dL Creatinine 0.5 L (0.6-1.0) mg/dL Est Cr Clr Drug Dosing 68.44 Estimated GFR (MDRD) > 60 (>60) Glucose 89 (74-106) mg/dL Calcium 8.5 (8.5-10.1) mg/dL Total Bilirubin (0.2-1.0) mg/dL AST (15-37) U/L ALT (12-78) U/L Alkaline Phosphatase (46-116) U/L Total Protein (6.4-8.2) g/dL Albumin (3.4-5.0) g/dL Globulin (2.3-3.5) g/dL Albumin/Globulin Ratio (1.2-2.2) Blood Type Gel Antibody Screen Crossmatch Med Orders - Current: Current Medications Diphenhydramine HCl (Benadryl) 25 - 50 mg IVPUSH Q4H PRN PRN Reason: Itching Diphenhydramine HCl (Benadryl) 25 - 50 mg PO Q4H PRN PRN Reason: Itching Fentanyl (Sublimaze) 10 - 30 mcg IVPUSH Q1H PRN PRN Reason: Pain (severe 7-10) Tranexamic Acid 1,000 mg/ (Sodium Chloride) 60 mls @ 200 mls/hr IV ONETIME ONE Stop: 07/09/18 17:44 Last Admin: 07/09/18 18:20 Dose: 200 mls/hr Promethazine HCl 12.5 mg/ (Sodium Chloride) 50.5 mls @ 200 mls/hr IV Q8H PRN PRN Reason: Nausea/Vomiting Sodium Chloride (Normal Saline) 1,000 mls @ 100 mls/hr IV ASDIRECTED [facility] Last Admin: 07/09/18 22:53 Dose: 100 mls/hr Morphine Sulfate (Morphine) 1 - 3 mg IVPUSH Q1H PRN PRN Reason: Pain Ondansetron HCl (Zofran) 4 mg IV Q8H PRN PRN Reason: Nausea/Vomiting Potassium Chloride (Klor-Con M20) 40 meq PO ONETIME ONE Stop: 07/10/18 11:01 Potassium Chloride (Klor-Con M20) 40 meq PO ONETIME ONE Stop: 07/10/18 17:01 Scopolamine (Transderm-Scop) 1.5 mg TRDERM Q72H PRN PRN Reason: Nausea Discontinued Medications Furosemide (Lasix) 10 mg IVPUSH ONETIME ONE Stop: 07/10/18 00:11 Last Admin: 07/10/18 01:20 Dose: 10 mg Sodium Chloride (Normal Saline) 1,000 mls @ 500 mls/hr IV ASDIRECTED [facility] Last Admin: 07/09/18 16:58 Dose: 500 mls/hr Tranexamic Acid 1,000 mg/ (Sodium Chloride) 60 mls @ 200 mls/hr IV ONETIME ONE Stop: 07/09/18 17:57 Last Admin: 07/09/18 17:37 Dose: 200 mls/hr Potassium Chloride (Klor-Con M20) 40 meq PO ONETIME ONE Stop: 07/10/18 13:01 - Exam General: Alert, Cooperative, No Acute Distress. No: Oriented Lungs: Clear to Auscultation, Normal Respiratory Effort, Decreased Breath Sounds. No: Wheezing Cardiovascular: Regular Rate, Regular Rhythm, No Murmurs GI/Abdominal Exam: Soft, Non-Tender, No Organomegaly, No Distention Extremities: Non-Tender, No Pedal Edema - Problem List Review Problem List Initiated/Reviewed/Updated: Yes - My Orders Last 24 Hours: My Active Orders 07/10/18 11:00 HGB [HEMOGLOBIN] [HEME] Stat Potassium Chloride [Klor-Con M20] 40 meq PO ONETIME ONE 07/10/18 17:00 HGB [HEMOGLOBIN] [HEME] Stat Potassium Chloride [Klor-Con M20] 40 meq PO ONETIME ONE 07/10/18 23:00 HGB [HEMOGLOBIN] [HEME] Stat 07/11/18 05:00 BASIC METABOLIC PANEL,BMP [CHEM] Timed CBC WITH AUTO DIFF [HEME] Timed MAGNESIUM [CHEM] Timed - Plan Plan:: ASSESSMENT AND PLAN LOWER GI BLEED-felt to be secondary to bleeding from anastomosis of her recent partial colon resection performed last week. She has been transfused 3 units of red blood cells and her hemoglobin level is well within desired range. She has had no further evidence of active bleeding since admission. -Serial hemoglobin levels -Surgical follow-up per Dr. Armijo -Nothing by mouth -IV fluids for hydration ACUTE BLOOD LOSS ANEMIA-stable following transfusion of red blood cells DEMENTIA -Continue outpatient medical therapy HYPOKALEMIA -Oral potassium replacement now and later today -Recheck potassium level in a.m. MAINTENANCE ISSUES -DVT prophylaxis; SCUDs, hold on anticoagulation because of acute bleeding -GI prophylaxis; not indicated -Hayden catheter; not indicated -Nutrition; nothing by mouth -Nicotine dependence; not required CODE STATUS-DNR/DNI ADMISSION STATUS-patient will be admitted to inpatient status, expect at least a 2 night hospital stay for evaluation and management of problems as outlined above. At the time of this admission I do not reasonably expected evaluation and management of this problem will require more than a 96 hour hospital stay. DISPOSITION-anticipate discharge to home after the hospital stay. PRIMARY CARE PROVIDER-Dr. Orona
[2018-07-10] MEDS ORDERED: Albuterol/Ipratropium 3.0-0.5 MG/3 ML Neb Soln INH PRN (10:18)
[2018-07-10] MEDS ORDERED: Albuterol 8 GM Inhaler INH PRN (10:18)
[2018-07-10] MEDS ORDERED: Sodium Chloride 0.9% 1,000 ML IV SCH (10:30)
[2018-07-10] MEDS: Lactobacillus Rhamnosus GG (Probiotic) Cap PO SCH ×2 (10:55→20:29)
[2018-07-10] MEDS: Levothyroxine 100 MCG Tab PO SCH (10:55)
[2018-07-10] MEDS ORDERED: Potassium Chloride 20 MEQ Tab.ER PO ONE ×3 (11:00→17:00)
[2018-07-10] MEDS: Formoterol/Mometasone 100-5 MCG 8.8 GM Inhaler IH SCH ×2 (11:38→20:44)
--- NOTE | 2018-07-10 15:35 | PCM.SURGPN ---
- General Info Date of Service: 07/10/18 Date of Surgery/Procedure: 07/03/18 POD#: 7 Post-Op Diagnosis: GI hemorrhoid s/p sigmoid resection with rectopexy by Dr. Kevin. Admission Diagnosis/Problem: Bleeding from anus Functional Status: Reports: Pain Controlled, Ambulating, Urinating (Difficulty with voiding. ) - Review of Systems General: Reports: No Symptoms HEENT: Reports: No Symptoms Pulmonary: Reports: No Symptoms Cardiovascular: Reports: No Symptoms Gastrointestinal: Reports: No Symptoms, Other (She has had no bleeding from her anus since last night. ) Genitourinary: Reports: No Symptoms Musculoskeletal: Reports: No Symptoms Skin: Reports: No Symptoms Neurological: Reports: No Symptoms Psychiatric: Reports: No Symptoms - Patient Data Vitals - Most Recent: Last Vital Signs Temp 98.2 F 07/10/18 07:34 Pulse 64 07/10/18 14:00 Resp 17 07/10/18 14:00 BP 130/74 07/10/18 14:00 Pulse Ox 96 07/10/18 14:00 Weight - Most Recent: 106 lb 8 oz I&O - Last 24 Hours: Intake & Output 07/10/18 07/10/18 07/10/18 06:59 14:59 22:59 Intake Total 1413 Output Total 1250 50 Balance 163 -50 Lab Results Last 24 Hrs: Laboratory Results - last 24 hr 07/09/18 07/09/18 07/09/18 Range/Units 17:14 17:14 17:14 WBC 7.5 (4.5-11.0) K/uL RBC 4.21 (3.30-5.50) M/uL Hgb 12.1 (12.0-15.0) g/dL Hct 36.9 (36.0-48.0) % MCV 88 (80-98) fL MCH 29 (27-31) pg MCHC 33 (32-36) % Plt Count 428 H (150-400) K/uL Neut % (Auto) 64 (36-66) % Lymph % (Auto) 16 L (24-44) % [place] % (Auto) 10 H (2-6) % Eos % (Auto) 9 H (2-4) % Baso % (Auto) 1 (0-1) % APTT (27.0-36.0) sec Sodium 138 L (140-148) mmol/L Potassium 3.3 L (3.6-5.2) mmol/L Chloride 97 L (100-108) mmol/L Carbon Dioxide 34 H (21-32) mmol/L Anion Gap 10.3 (5.0-14.0) mmol/L BUN 9 (7-18) mg/dL Creatinine 0.7 (0.6-1.0) mg/dL Est Cr Clr Drug Dosing TNP Estimated GFR (MDRD) > 60 (>60) Glucose 105 (74-106) mg/dL Calcium 9.4 (8.5-10.1) mg/dL Total Bilirubin 0.4 (0.2-1.0) mg/dL AST 25 (15-37) U/L ALT 23 (12-78) U/L Alkaline Phosphatase 72 (46-116) U/L Total Protein 6.9 (6.4-8.2) g/dL Albumin 3.1 L (3.4-5.0) g/dL Globulin 3.8 H (2.3-3.5) g/dL Albumin/Globulin Ratio 0.8 L (1.2-2.2) Blood Type A NEGATIVE Gel Antibody Screen Negative Crossmatch See Detail 07/09/18 07/09/18 07/10/18 Range/Units 17:24 20:50 01:20 WBC (4.5-11.0) K/uL RBC (3.30-5.50) M/uL Hgb 9.9 L D 11.4 L (12.0-15.0) g/dL Hct (36.0-48.0) % MCV (80-98) fL MCH (27-31) pg MCHC (32-36) % Plt Count (150-400) K/uL Neut % (Auto) (36-66) % Lymph % (Auto) (24-44) % [place] % (Auto) (2-6) % Eos % (Auto) (2-4) % Baso % (Auto) (0-1) % APTT 29.0 (27.0-36.0) sec Sodium (140-148) mmol/L Potassium (3.6-5.2) mmol/L Chloride (100-108) mmol/L Carbon Dioxide (21-32) mmol/L Anion Gap (5.0-14.0) mmol/L BUN (7-18) mg/dL Creatinine (0.6-1.0) mg/dL Est Cr Clr Drug Dosing Estimated GFR (MDRD) (>60) Glucose (74-106) mg/dL Calcium (8.5-10.1) mg/dL Total Bilirubin (0.2-1.0) mg/dL AST (15-37) U/L ALT (12-78) U/L Alkaline Phosphatase (46-116) U/L Total Protein (6.4-8.2) g/dL Albumin (3.4-5.0) g/dL Globulin (2.3-3.5) g/dL Albumin/Globulin Ratio (1.2-2.2) Blood Type Gel Antibody Screen Crossmatch 07/10/18 07/10/18 07/10/18 Range/Units 04:31 08:33 10:50 WBC (4.5-11.0) K/uL RBC (3.30-5.50) M/uL Hgb 12.8 12.8 (12.0-15.0) g/dL Hct (36.0-48.0) % MCV (80-98) fL MCH (27-31) pg MCHC (32-36) % Plt Count (150-400) K/uL Neut % (Auto) (36-66) % Lymph % (Auto) (24-44) % [place] % (Auto) (2-6) % Eos % (Auto) (2-4) % Baso % (Auto) (0-1) % APTT (27.0-36.0) sec Sodium 139 L (140-148) mmol/L Potassium 3.2 L (3.6-5.2) mmol/L Chloride 102 (100-108) mmol/L Carbon Dioxide 30 (21-32) mmol/L Anion Gap 10.2 (5.0-14.0) mmol/L BUN 7 (7-18) mg/dL Creatinine 0.5 L (0.6-1.0) mg/dL Est Cr Clr Drug Dosing 68.44 Estimated GFR (MDRD) > 60 (>60) Glucose 89 (74-106) mg/dL Calcium 8.5 (8.5-10.1) mg/dL Total Bilirubin (0.2-1.0) mg/dL AST (15-37) U/L ALT (12-78) U/L Alkaline Phosphatase (46-116) U/L Total Protein (6.4-8.2) g/dL Albumin (3.4-5.0) g/dL Globulin (2.3-3.5) g/dL Albumin/Globulin Ratio (1.2-2.2) Blood Type Gel Antibody Screen Crossmatch Med Orders - Current: Current Medications Albuterol (Ventolin Hfa) 0 gm INH Q6H PRN PRN Reason: Shortness of Breath Albuterol/Ipratropium (Duoneb 3.0-0.5 Mg/3 Ml) 3 ml INH Q4H PRN PRN Reason: Shortness of Breath Diphenhydramine HCl (Benadryl) 25 - 50 mg IVPUSH Q4H PRN PRN Reason: Itching Diphenhydramine HCl (Benadryl) 25 - 50 mg PO Q4H PRN PRN Reason: Itching Donepezil HCl (Aricept) 10 mg PO BEDTIME [facility] Fentanyl (Sublimaze) 10 - 30 mcg IVPUSH Q1H PRN PRN Reason: Pain (severe 7-10) Tranexamic Acid 1,000 mg/ (Sodium Chloride) 60 mls @ 200 mls/hr IV ONETIME ONE Stop: 07/09/18 17:44 Last Admin: 07/09/18 18:20 Dose: 200 mls/hr Promethazine HCl 12.5 mg/ (Sodium Chloride) 50.5 mls @ 200 mls/hr IV Q8H PRN PRN Reason: Nausea/Vomiting Sodium Chloride (Normal Saline) 1,000 mls @ 50 mls/hr IV ASDIRECTED [facility] Stop: 07/10/18 17:00 Last Admin: 07/10/18 13:17 Dose: 50 mls/hr Lactobacillus Rhamnosus (Culturelle) 1 cap PO BID [facility] Last Admin: 07/10/18 10:55 Dose: 1 cap Levothyroxine Sodium (Synthroid) 100 mcg PO DAILY@0730 [facility] Last Admin: 07/10/18 10:55 Dose: 100 mcg Mirtazapine (Remeron) 45 mg PO BEDTIME [facility] Mometasone Furoate/Formoterol Fumar (Dulera 100-5 Mcg) 2 puff IH BIDRT [facility] Last Admin: 07/10/18 11:38 Dose: 2 puff Morphine Sulfate (Morphine) 1 - 3 mg IVPUSH Q1H PRN PRN Reason: Pain Last Admin: 07/10/18 11:30 Dose: 1 mg Ondansetron HCl (Zofran) 4 mg IV Q8H PRN PRN Reason: Nausea/Vomiting Last Admin: 07/10/18 11:51 Dose: 4 mg Potassium Chloride (Klor-Con M20) 40 meq PO ONETIME ONE Stop: 07/10/18 17:01 Scopolamine (Transderm-Scop) 1.5 mg TRDERM Q72H PRN PRN Reason: Nausea Discontinued Medications Furosemide (Lasix) 10 mg IVPUSH ONETIME ONE Stop: 07/10/18 00:11 Last Admin: 07/10/18 01:20 Dose: 10 mg Sodium Chloride (Normal Saline) 1,000 mls @ 500 mls/hr IV ASDIRECTED [facility] Last Admin: 07/09/18 16:58 Dose: 500 mls/hr Tranexamic Acid 1,000 mg/ (Sodium Chloride) 60 mls @ 200 mls/hr IV ONETIME ONE Stop: 07/09/18 17:57 Last Admin: 07/09/18 17:37 Dose: 200 mls/hr Sodium Chloride (Normal Saline) 1,000 mls @ 100 mls/hr IV ASDIRECTED [facility] Last Admin: 07/09/18 22:53 Dose: 100 mls/hr Potassium Chloride (Klor-Con M20) 40 meq PO ONETIME ONE Stop: 07/10/18 13:01 Potassium Chloride (Klor-Con M20) 40 meq PO ONETIME ONE Stop: 07/10/18 11:01 Last Admin: 07/10/18 10:56 Dose: 40 meq - Exam Wound/Incisions: Healing Well General: Alert, Cooperative, No Acute Distress. No: Oriented GI/Abdominal Exam: Soft, Non-Tender, Other (Incision appears well with no evidence of infection. ) - Problem List Review Problem List Initiated/Reviewed/Updated: Yes - My Orders Last 24 Hours: Active Orders 24 hr Category Date Time Status Patient Status [ADT] Routine ADT 07/09/18 17:56 Active Oxygen Therapy [RC] PRN Care 07/09/18 17:56 Active Up With Assistance [RC] ASDIRECTED Care 07/09/18 17:56 Active VTE/DVT Education [RC] Per Unit Routine Care 07/09/18 17:56 Active Vital Signs [RC] Q2H Care 07/09/18 17:56 Active Clear Liquid Diet [DIET] Diet 07/10/18 Dinner Active BASIC METABOLIC PANEL,BMP [CHEM] Timed Lab 07/11/18 05:00 Ordered CBC WITH AUTO DIFF [HEME] Timed Lab 07/11/18 05:00 Ordered FRESH FROZEN PLASMA [BBK] Stat Lab 07/09/18 17:14 Results HGB [HEMOGLOBIN] [HEME] Stat Lab 07/10/18 17:00 Ordered HGB [HEMOGLOBIN] [HEME] Stat Lab 07/10/18 23:00 Ordered MAGNESIUM [CHEM] Timed Lab 07/11/18 05:00 Ordered PATIENT RETYPE [BBK] Stat Lab 07/09/18 17:14 Results RED BLOOD CELLS LP [BBK] Stat Lab 07/09/18 17:14 Results TYPE AND SCREEN [BBK] Stat Lab 07/09/18 17:14 Results Albuterol [Ventolin HFA] Med 07/10/18 10:18 Active 0 gm INH Q6H PRN Albuterol/Ipratropium [DuoNeb 3.0-0.5 MG/3 ML] Med 07/10/18 10:18 Active 3 ml INH Q4H PRN Donepezil [Aricept] Med 07/10/18 21:00 Active 10 mg PO BEDTIME Lactobacillus Rhamnosus GG [Culturelle] Med 07/10/18 10:30 Active 1 cap PO BID Levothyroxine [Synthroid] Med 07/10/18 10:30 Active 100 mcg PO DAILY@0730 Mirtazapine [Remeron] Med 07/10/18 21:00 Active 45 mg PO BEDTIME Mometasone/Formoterol [Dulera 100-5 MCG] Med 07/10/18 10:30 Active 2 puff IH BIDRT Morphine Med 07/09/18 18:11 Active 1 - 3 mg IVPUSH Q1H PRN Ondansetron [Zofran] Med 07/09/18 17:56 Active 4 mg IV Q8H PRN Potassium Chloride [Klor-Con M20] Med 07/10/18 17:00 Once 40 meq PO ONETIME ONE Promethazine [Phenergan] 12.5 mg Med 07/09/18 17:56 Active Sodium Chloride 0.9% [Normal Saline] 50 ml IV Q8H Scopolamine [Transderm-Scop] Med 07/09/18 18:06 Active 1.5 mg TRDERM Q72H PRN Sodium Chloride 0.9% [Normal Saline] 1,000 ml Med 07/10/18 10:30 Active IV ASDIRECTED Tranexamic Acid [Cyklokapron] 1,000 mg Med 07/09/18 17:27 Pending Sodium Chloride 0.9% [Normal Saline] 50 ml IV ONETIME diphenhydrAMINE [Benadryl] Med 07/09/18 18:08 Active 25 - 50 mg IVPUSH Q4H PRN diphenhydrAMINE [Benadryl] Med 07/09/18 18:10 Active 25 - 50 mg PO Q4H PRN fentaNYL [Sublimaze] Med 07/09/18 18:12 Active 10 - 30 mcg IVPUSH Q1H PRN Sequential Compression Device [OM.PC] Per Unit Routine Oth 07/09/18 17:59 Ordered Transfuse Red Blood Cells [COMM] Stat Oth 07/09/18 21:07 Ordered Code Status [Resuscitation Status] Routine Resus Stat 07/09/18 19:45 Ordered Medication Orders Albuterol (Ventolin Hfa) 0 gm INH Q6H PRN PRN Reason: Shortness of Breath Albuterol/Ipratropium (Duoneb 3.0-0.5 Mg/3 Ml) 3 ml INH Q4H PRN PRN Reason: Shortness of Breath Diphenhydramine HCl (Benadryl) 25 - 50 mg IVPUSH Q4H PRN PRN Reason: Itching Diphenhydramine HCl (Benadryl) 25 - 50 mg PO Q4H PRN PRN Reason: Itching Donepezil HCl (Aricept) 10 mg PO BEDTIME [facility] Fentanyl (Sublimaze) 10 - 30 mcg IVPUSH Q1H PRN PRN Reason: Pain (severe 7-10) Tranexamic Acid 1,000 mg/ (Sodium Chloride) 60 mls @ 200 mls/hr IV ONETIME ONE Stop: 07/09/18 17:44 Last Admin: 07/09/18 18:20 Dose: 200 mls/hr Promethazine HCl 12.5 mg/ (Sodium Chloride) 50.5 mls @ 200 mls/hr IV Q8H PRN PRN Reason: Nausea/Vomiting Sodium Chloride (Normal Saline) 1,000 mls @ 50 mls/hr IV ASDIRECTED [facility] Stop: 07/10/18 17:00 Last Admin: 07/10/18 13:17 Dose: 50 mls/hr Lactobacillus Rhamnosus (Culturelle) 1 cap PO BID [facility] Last Admin: 07/10/18 10:55 Dose: 1 cap Levothyroxine Sodium (Synthroid) 100 mcg PO DAILY@0730 [facility] Last Admin: 07/10/18 10:55 Dose: 100 mcg Mirtazapine (Remeron) 45 mg PO BEDTIME [facility] Mometasone Furoate/Formoterol Fumar (Dulera 100-5 Mcg) 2 puff IH BIDRT [facility] Last Admin: 07/10/18 11:38 Dose: 2 puff Morphine Sulfate (Morphine) 1 - 3 mg IVPUSH Q1H PRN PRN Reason: Pain Last Admin: 07/10/18 11:30 Dose: 1 mg Ondansetron HCl (Zofran) 4 mg IV Q8H PRN PRN Reason: Nausea/Vomiting Last Admin: 07/10/18 11:51 Dose: 4 mg Potassium Chloride (Klor-Con M20) 40 meq PO ONETIME ONE Stop: 07/10/18 17:01 Scopolamine (Transderm-Scop) 1.5 mg TRDERM Q72H PRN PRN Reason: Nausea - Assessment Assessment (Free Text/Narrative):: Bleeding seems to have stopped. - Plan Plan (Free Text/Narrative):: Clear liquid diet.
[2018-07-10] MEDS: Donepezil 10 MG Tab PO SCH (20:29)
[2018-07-10] MEDS: Mirtazapine 15 MG Tab PO SCH (20:30)
[2018-07-10] MEDS: Tranexamic Acid 1,000 MG in Sodium Chloride 0.9% 50 ML IV ONE (20:34)
[2018-07-11] MEDS: Formoterol/Mometasone 100-5 MCG 8.8 GM Inhaler IH SCH ×2 (07:31→20:30)
[2018-07-11] MEDS: Levothyroxine 100 MCG Tab PO SCH (07:35)
[2018-07-11] MEDS: Lactobacillus Rhamnosus GG (Probiotic) Cap PO SCH ×2 (08:21→20:30)
--- NOTE | 2018-07-11 09:13 | PCM.PN ---
- General Info Date of Service: 07/11/18 Subjective Update: Ms. Beth has been stable since yesterday with no further evidence of active bleeding. Hemoglobin has remained stable and unchanged over the last 24 hours. She remains very confused because of her significant dementia and is unable to provide reliable information concerning symptoms or review of systems. Functional Status: Reports: Tolerating Diet, Urinating - Patient Data Vitals - Most Recent: Last Vital Signs Temp 98.1 F 07/11/18 08:00 Pulse 65 07/11/18 08:00 Resp 19 07/11/18 08:00 BP 137/83 07/11/18 08:00 Pulse Ox 95 07/11/18 08:00 Weight - Most Recent: 106 lb 8 oz I&O - Last 24 Hours: Intake & Output 07/10/18 07/11/18 07/11/18 22:59 06:59 14:59 Intake Total 1863 Output Total 550 600 550 Balance 1313 -600 -550 Lab Results Last 24 Hours: Laboratory Results - last 24 hr 07/09/18 07/10/18 07/10/18 Range/Units 17:14 10:50 17:31 WBC (4.5-11.0) K/uL RBC (3.30-5.50) M/uL Hgb 12.8 13.3 (12.0-15.0) g/dL Hct (36.0-48.0) % MCV (80-98) fL MCH (27-31) pg MCHC (32-36) % Plt Count (150-400) K/uL Neut % (Auto) (36-66) % Lymph % (Auto) (24-44) % [place] % (Auto) (2-6) % Eos % (Auto) (2-4) % Baso % (Auto) (0-1) % Sodium (140-148) mmol/L Potassium (3.6-5.2) mmol/L Chloride (100-108) mmol/L Carbon Dioxide (21-32) mmol/L Anion Gap (5.0-14.0) mmol/L BUN (7-18) mg/dL Creatinine (0.6-1.0) mg/dL Est Cr Clr Drug Dosing mL/min Estimated GFR (MDRD) (>60) Glucose (74-106) mg/dL Calcium (8.5-10.1) mg/dL Magnesium (1.8-2.4) mg/dL Blood Type A NEGATIVE Gel Antibody Screen Negative Crossmatch See Detail 07/10/18 07/11/18 07/11/18 Range/Units 23:25 03:35 03:35 WBC 6.8 (4.5-11.0) K/uL RBC 4.18 (3.30-5.50) M/uL Hgb 12.0 12.2 (12.0-15.0) g/dL Hct 37.0 (36.0-48.0) % MCV 89 (80-98) fL MCH 29 (27-31) pg MCHC 33 (32-36) % Plt Count 289 (150-400) K/uL Neut % (Auto) 53 (36-66) % Lymph % (Auto) 22 L (24-44) % [place] % (Auto) 13 H (2-6) % Eos % (Auto) 11 H (2-4) % Baso % (Auto) 1 (0-1) % Sodium 138 L (140-148) mmol/L Potassium 4.2 (3.6-5.2) mmol/L Chloride 103 (100-108) mmol/L Carbon Dioxide 28 (21-32) mmol/L Anion Gap 11.2 (5.0-14.0) mmol/L BUN 5 L (7-18) mg/dL Creatinine 0.6 (0.6-1.0) mg/dL Est Cr Clr Drug Dosing 57.03 mL/min Estimated GFR (MDRD) > 60 (>60) Glucose 86 (74-106) mg/dL Calcium 8.7 (8.5-10.1) mg/dL Magnesium 1.9 (1.8-2.4) mg/dL Blood Type Gel Antibody Screen Crossmatch Med Orders - Current: Current Medications Albuterol (Ventolin Hfa) 0 gm INH Q6H PRN PRN Reason: Shortness of Breath Albuterol/Ipratropium (Duoneb 3.0-0.5 Mg/3 Ml) 3 ml INH Q4H PRN PRN Reason: Shortness of Breath Diphenhydramine HCl (Benadryl) 25 - 50 mg IVPUSH Q4H PRN PRN Reason: Itching Diphenhydramine HCl (Benadryl) 25 - 50 mg PO Q4H PRN PRN Reason: Itching Donepezil HCl (Aricept) 10 mg PO BEDTIME [facility] Last Admin: 07/10/18 20:29 Dose: 10 mg Fentanyl (Sublimaze) 10 - 30 mcg IVPUSH Q1H PRN PRN Reason: Pain (severe 7-10) Promethazine HCl 12.5 mg/ (Sodium Chloride) 50.5 mls @ 200 mls/hr IV Q8H PRN PRN Reason: Nausea/Vomiting Lactobacillus Rhamnosus (Culturelle) 1 cap PO BID [facility] Last Admin: 07/11/18 08:21 Dose: 1 cap Levothyroxine Sodium (Synthroid) 100 mcg PO DAILY@0730 [facility] Last Admin: 07/11/18 07:35 Dose: 100 mcg Mirtazapine (Remeron) 45 mg PO BEDTIME [facility] Last Admin: 07/10/18 20:30 Dose: 45 mg Mometasone Furoate/Formoterol Fumar (Dulera 100-5 Mcg) 2 puff IH BIDRT [facility] Last Admin: 07/11/18 07:31 Dose: 2 puff Morphine Sulfate (Morphine) 1 - 3 mg IVPUSH Q1H PRN PRN Reason: Pain Last Admin: 07/10/18 11:30 Dose: 1 mg Ondansetron HCl (Zofran) 4 mg IV Q8H PRN PRN Reason: Nausea/Vomiting Last Admin: 07/10/18 11:51 Dose: 4 mg Scopolamine (Transderm-Scop) 1.5 mg TRDERM Q72H PRN PRN Reason: Nausea Discontinued Medications Furosemide (Lasix) 10 mg IVPUSH ONETIME ONE Stop: 07/10/18 00:11 Last Admin: 07/10/18 01:20 Dose: 10 mg Sodium Chloride (Normal Saline) 1,000 mls @ 500 mls/hr IV ASDIRECTED [facility] Last Admin: 07/09/18 16:58 Dose: 500 mls/hr Tranexamic Acid 1,000 mg/ (Sodium Chloride) 60 mls @ 200 mls/hr IV ONETIME ONE Stop: 07/09/18 17:57 Last Admin: 07/09/18 17:37 Dose: 200 mls/hr Tranexamic Acid 1,000 mg/ (Sodium Chloride) 60 mls @ 200 mls/hr IV ONETIME ONE Stop: 07/09/18 17:44 Last Admin: 07/10/18 20:34 Dose: Not Given Sodium Chloride (Normal Saline) 1,000 mls @ 100 mls/hr IV ASDIRECTED [facility] Last Admin: 07/09/18 22:53 Dose: 100 mls/hr Sodium Chloride (Normal Saline) 1,000 mls @ 50 mls/hr IV ASDIRECTED [facility] Stop: 07/10/18 17:00 Last Admin: 07/10/18 13:17 Dose: 50 mls/hr Potassium Chloride (Klor-Con M20) 40 meq PO ONETIME ONE Stop: 07/10/18 13:01 Potassium Chloride (Klor-Con M20) 40 meq PO ONETIME ONE Stop: 07/10/18 11:01 Last Admin: 07/10/18 10:56 Dose: 40 meq Potassium Chloride (Klor-Con M20) 40 meq PO ONETIME ONE Stop: 07/10/18 17:01 Last Admin: 07/10/18 17:03 Dose: 40 meq - Exam General: Alert, Cooperative, No Acute Distress. No: Oriented Lungs: Clear to Auscultation, Normal Respiratory Effort Cardiovascular: Regular Rate, Regular Rhythm, No Murmurs GI/Abdominal Exam: Soft, Non-Tender, No Organomegaly, No Distention - Problem List Review Problem List Initiated/Reviewed/Updated: Yes - My Orders Last 24 Hours: My Active Orders 07/10/18 10:18 Albuterol [Ventolin HFA] 0 gm INH Q6H PRN Albuterol/Ipratropium [DuoNeb 3.0-0.5 MG/3 ML] 3 ml INH Q4H PRN 07/10/18 10:30 Lactobacillus Rhamnosus GG [Culturelle] 1 cap PO BID Levothyroxine [Synthroid] 100 mcg PO DAILY@0730 Mometasone/Formoterol [Dulera 100-5 MCG] 2 puff IH BIDRT 07/10/18 21:00 Donepezil [Aricept] 10 mg PO BEDTIME Mirtazapine [Remeron] 45 mg PO BEDTIME 07/11/18 09:06 Patient Status [ADT] Routine 07/11/18 17:00 HGB [HEMOGLOBIN] [HEME] Stat 07/11/18 Breakfast Soft Diet [DIET] 07/12/18 05:11 HGB [HEMOGLOBIN] [HEME] AM - Plan Plan:: ASSESSMENT AND PLAN LOWER GI BLEED-felt to be secondary to bleeding from anastomosis of her recent partial colon resection performed last week. Stable since yesterday with no further evidence of active bleeding -Serial hemoglobin levels -Surgical follow-up per Dr. Armijo -Advance to soft low residue diet -Saline lock IV ACUTE BLOOD LOSS ANEMIA-stable following transfusion of red blood cells DEMENTIA -Continue outpatient medical therapy HYPOKALEMIA-resolved MAINTENANCE ISSUES -DVT prophylaxis; SCUDs, hold on anticoagulation because of acute bleeding -GI prophylaxis; not indicated -Hayden catheter; not indicated -Nutrition; nothing by mouth -Nicotine dependence; not required CODE STATUS-DNR/DNI ADMISSION STATUS-patient will be admitted to inpatient status, expect at least a 2 night hospital stay for evaluation and management of problems as outlined above. At the time of this admission I do not reasonably expected evaluation and management of this problem will require more than a 96 hour hospital stay. DISPOSITION-anticipate discharge to home after the hospital stay. PRIMARY CARE PROVIDER-Dr. Orona
--- NOTE | 2018-07-11 13:03 | PCM.SURGPN ---
- General Info Date of Service: 07/03/18 Date of Surgery/Procedure: 07/11/18 POD#: 8 Post-Op Diagnosis: Rectal prolapse - Review of Systems General: Reports: No Symptoms HEENT: Reports: No Symptoms Pulmonary: Reports: No Symptoms Cardiovascular: Reports: No Symptoms Gastrointestinal: Reports: No Symptoms, Other (No further bleeding) Genitourinary: Reports: No Symptoms Musculoskeletal: Reports: No Symptoms Skin: Reports: No Symptoms Neurological: Reports: No Symptoms Psychiatric: Reports: No Symptoms - Patient Data Vitals - Most Recent: Last Vital Signs Temp 98.1 F 07/11/18 08:00 Pulse 65 07/11/18 08:00 Resp 19 07/11/18 08:00 BP 137/83 07/11/18 08:00 Pulse Ox 95 07/11/18 08:00 Weight - Most Recent: 106 lb 8 oz I&O - Last 24 Hours: Intake & Output 07/10/18 07/11/18 07/11/18 22:59 06:59 14:59 Intake Total 1863 Output Total 550 600 550 Balance 1313 -600 -550 Lab Results Last 24 Hrs: Laboratory Results - last 24 hr 07/09/18 07/10/18 07/10/18 Range/Units 17:14 17:31 23:25 WBC (4.5-11.0) K/uL RBC (3.30-5.50) M/uL Hgb 13.3 12.0 (12.0-15.0) g/dL Hct (36.0-48.0) % MCV (80-98) fL MCH (27-31) pg MCHC (32-36) % Plt Count (150-400) K/uL Neut % (Auto) (36-66) % Lymph % (Auto) (24-44) % [place] % (Auto) (2-6) % Eos % (Auto) (2-4) % Baso % (Auto) (0-1) % Sodium (140-148) mmol/L Potassium (3.6-5.2) mmol/L Chloride (100-108) mmol/L Carbon Dioxide (21-32) mmol/L Anion Gap (5.0-14.0) mmol/L BUN (7-18) mg/dL Creatinine (0.6-1.0) mg/dL Est Cr Clr Drug Dosing mL/min Estimated GFR (MDRD) (>60) Glucose (74-106) mg/dL Calcium (8.5-10.1) mg/dL Magnesium (1.8-2.4) mg/dL Blood Type A NEGATIVE Gel Antibody Screen Negative Crossmatch See Detail 07/11/18 07/11/18 Range/Units 03:35 03:35 WBC 6.8 (4.5-11.0) K/uL RBC 4.18 (3.30-5.50) M/uL Hgb 12.2 (12.0-15.0) g/dL Hct 37.0 (36.0-48.0) % MCV 89 (80-98) fL MCH 29 (27-31) pg MCHC 33 (32-36) % Plt Count 289 (150-400) K/uL Neut % (Auto) 53 (36-66) % Lymph % (Auto) 22 L (24-44) % [place]imer % (Auto) 13 H (2-6) % Eos % (Auto) 11 H (2-4) % Baso % (Auto) 1 (0-1) % Sodium 138 L (140-148) mmol/L Potassium 4.2 (3.6-5.2) mmol/L Chloride 103 (100-108) mmol/L Carbon Dioxide 28 (21-32) mmol/L Anion Gap 11.2 (5.0-14.0) mmol/L BUN 5 L (7-18) mg/dL Creatinine 0.6 (0.6-1.0) mg/dL Est Cr Clr Drug Dosing 57.03 mL/min Estimated GFR (MDRD) > 60 (>60) Glucose 86 (74-106) mg/dL Calcium 8.7 (8.5-10.1) mg/dL Magnesium 1.9 (1.8-2.4) mg/dL Blood Type Gel Antibody Screen Crossmatch Med Orders - Current: Current Medications Albuterol (Ventolin Hfa) 0 gm INH Q6H PRN PRN Reason: Shortness of Breath Albuterol/Ipratropium (Duoneb 3.0-0.5 Mg/3 Ml) 3 ml INH Q4H PRN PRN Reason: Shortness of Breath Diphenhydramine HCl (Benadryl) 25 - 50 mg IVPUSH Q4H PRN PRN Reason: Itching Diphenhydramine HCl (Benadryl) 25 - 50 mg PO Q4H PRN PRN Reason: Itching Donepezil HCl (Aricept) 10 mg PO BEDTIME [facility] Last Admin: 07/10/18 20:29 Dose: 10 mg Fentanyl (Sublimaze) 10 - 30 mcg IVPUSH Q1H PRN PRN Reason: Pain (severe 7-10) Promethazine HCl 12.5 mg/ (Sodium Chloride) 50.5 mls @ 200 mls/hr IV Q8H PRN PRN Reason: Nausea/Vomiting Lactobacillus Rhamnosus (Culturelle) 1 cap PO BID [facility] Last Admin: 07/11/18 08:21 Dose: 1 cap Levothyroxine Sodium (Synthroid) 100 mcg PO DAILY@0730 [facility] Last Admin: 07/11/18 07:35 Dose: 100 mcg Mirtazapine (Remeron) 45 mg PO BEDTIME [facility] Last Admin: 07/10/18 20:30 Dose: 45 mg Mometasone Furoate/Formoterol Fumar (Dulera 100-5 Mcg) 2 puff IH BIDRT [facility] Last Admin: 07/11/18 07:31 Dose: 2 puff Morphine Sulfate (Morphine) 1 - 3 mg IVPUSH Q1H PRN PRN Reason: Pain Last Admin: 07/10/18 11:30 Dose: 1 mg Ondansetron HCl (Zofran) 4 mg IV Q8H PRN PRN Reason: Nausea/Vomiting Last Admin: 07/10/18 11:51 Dose: 4 mg Scopolamine (Transderm-Scop) 1.5 mg TRDERM Q72H PRN PRN Reason: Nausea Discontinued Medications Furosemide (Lasix) 10 mg IVPUSH ONETIME ONE Stop: 07/10/18 00:11 Last Admin: 07/10/18 01:20 Dose: 10 mg Sodium Chloride (Normal Saline) 1,000 mls @ 500 mls/hr IV ASDIRECTED [facility] Last Admin: 07/09/18 16:58 Dose: 500 mls/hr Tranexamic Acid 1,000 mg/ (Sodium Chloride) 60 mls @ 200 mls/hr IV ONETIME ONE Stop: 07/09/18 17:57 Last Admin: 07/09/18 17:37 Dose: 200 mls/hr Tranexamic Acid 1,000 mg/ (Sodium Chloride) 60 mls @ 200 mls/hr IV ONETIME ONE Stop: 07/09/18 17:44 Last Admin: 07/10/18 20:34 Dose: Not Given Sodium Chloride (Normal Saline) 1,000 mls @ 100 mls/hr IV ASDIRECTED [facility] Last Admin: 07/09/18 22:53 Dose: 100 mls/hr Sodium Chloride (Normal Saline) 1,000 mls @ 50 mls/hr IV ASDIRECTED [facility] Stop: 07/10/18 17:00 Last Admin: 07/10/18 13:17 Dose: 50 mls/hr Potassium Chloride (Klor-Con M20) 40 meq PO ONETIME ONE Stop: 07/10/18 13:01 Potassium Chloride (Klor-Con M20) 40 meq PO ONETIME ONE Stop: 07/10/18 11:01 Last Admin: 07/10/18 10:56 Dose: 40 meq Potassium Chloride (Klor-Con M20) 40 meq PO ONETIME ONE Stop: 07/10/18 17:01 Last Admin: 07/10/18 17:03 Dose: 40 meq - Exam Wound/Incisions: Healing Well General: Alert, Cooperative, No Acute Distress. No: Oriented Lungs: Clear to Auscultation, Normal Respiratory Effort Cardiovascular: Regular Rate, Regular Rhythm GI/Abdominal Exam: Normal Bowel Sounds Extremities: Normal Inspection Skin: Warm, Dry, Intact Psy/Mental Status: Alert, Normal Affect, Normal Mood, Other (Pleasantly confused ) - Problem List Review Problem List Initiated/Reviewed/Updated: Yes - My Orders Last 24 Hours: Active Orders 24 hr Category Date Time Status Patient Status [ADT] Routine ADT 07/11/18 09:06 Active Soft Diet [DIET] Diet 07/11/18 Breakfast Active HGB [HEMOGLOBIN] [HEME] AM Lab 07/12/18 05:11 Ordered HGB [HEMOGLOBIN] [HEME] Stat Lab 07/11/18 17:00 Ordered Donepezil [Aricept] Med 07/10/18 21:00 Active 10 mg PO BEDTIME Mirtazapine [Remeron] Med 07/10/18 21:00 Active 45 mg PO BEDTIME Medication Orders Albuterol (Ventolin Hfa) 0 gm INH Q6H PRN PRN Reason: Shortness of Breath Albuterol/Ipratropium (Duoneb 3.0-0.5 Mg/3 Ml) 3 ml INH Q4H PRN PRN Reason: Shortness of Breath Diphenhydramine HCl (Benadryl) 25 - 50 mg IVPUSH Q4H PRN PRN Reason: Itching Diphenhydramine HCl (Benadryl) 25 - 50 mg PO Q4H PRN PRN Reason: Itching Donepezil HCl (Aricept) 10 mg PO BEDTIME [facility] Last Admin: 07/10/18 20:29 Dose: 10 mg Fentanyl (Sublimaze) 10 - 30 mcg IVPUSH Q1H PRN PRN Reason: Pain (severe 7-10) Promethazine HCl 12.5 mg/ (Sodium Chloride) 50.5 mls @ 200 mls/hr IV Q8H PRN PRN Reason: Nausea/Vomiting Lactobacillus Rhamnosus (Culturelle) 1 cap PO BID [facility] Last Admin: 07/11/18 08:21 Dose: 1 cap Admin: 07/10/18 20:29 Dose: 1 cap Admin: 07/10/18 10:55 Dose: 1 cap Levothyroxine Sodium (Synthroid) 100 mcg PO DAILY@0730 [facility] Last Admin: 07/11/18 07:35 Dose: 100 mcg Admin: 07/10/18 10:55 Dose: 100 mcg Mirtazapine (Remeron) 45 mg PO BEDTIME [facility] Last Admin: 07/10/18 20:30 Dose: 45 mg Mometasone Furoate/Formoterol Fumar (Dulera 100-5 Mcg) 2 puff IH BIDRT [facility] Last Admin: 07/11/18 07:31 Dose: 2 puff Admin: 07/10/18 20:44 Dose: 2 puff Admin: 07/10/18 11:38 Dose: 2 puff Morphine Sulfate (Morphine) 1 - 3 mg IVPUSH Q1H PRN PRN Reason: Pain Last Admin: 07/10/18 11:30 Dose: 1 mg Ondansetron HCl (Zofran) 4 mg IV Q8H PRN PRN Reason: Nausea/Vomiting Last Admin: 07/10/18 11:51 Dose: 4 mg Scopolamine (Transderm-Scop) 1.5 mg TRDERM Q72H PRN PRN Reason: Nausea - Assessment Assessment (Free Text/Narrative):: Doing well. Hemoglobin is stable at about 12. - Plan Plan (Free Text/Narrative):: Agree with advance diet. Expect discharge probably tomorrow.
[2018-07-11] MEDS: Acetaminophen 325 MG Tab PO PRN ×2 (16:34→20:36)
[2018-07-11] MEDS: Donepezil 10 MG Tab PO SCH (20:30)
[2018-07-11] MEDS: Mirtazapine 15 MG Tab PO SCH (20:30)
[2018-07-12 07:14] VITALS: BP 139/64
[2018-07-12] MEDS: Formoterol/Mometasone 100-5 MCG 8.8 GM Inhaler IH SCH (07:17)
[2018-07-12] MEDS: Levothyroxine 100 MCG Tab PO SCH (07:24)
[2018-07-12] MEDS: Lactobacillus Rhamnosus GG (Probiotic) Cap PO SCH (09:19)
--- NOTE | 2018-07-12 09:51 | PCM.DCSUM1 ---
Discharge Summary - Hospital Course Brief History: Ms. Beth is an 78-year-old woman who was admitted from the emergency department with a lower GI bleed, following recent sigmoid colon resection. - Discharge Data Discharge Date: 07/12/18 Discharge Disposition: Home, Self-Care 01 Condition: Fair - Discharge Diagnosis/Problem(s) (1) Acute blood loss anemia SNOMED Code(s): 007259969 ICD Code: D62 - ACUTE POSTHEMORRHAGIC ANEMIA Status: Acute Current Visit : Yes (2) Lower gastrointestinal bleed SNOMED Code(s): 46433855 ICD Code: K92.2 - GASTROINTESTINAL HEMORRHAGE, UNSPECIFIED Status: Acute Current Visit: Yes (3) Late onset Alzheimer's disease without behavioral disturbance SNOMED Code(s): 03843356 ICD Code: G30.1 - ALZHEIMER'S DISEASE WITH LATE ONSET; F02.80 - DEMENTIA IN OTH DISEASES CLASSD ELSWHR W/O BEHAVRL DISTURB Status: Chronic Current Visit : No (4) COPD (chronic obstructive pulmonary disease) SNOMED Code(s): 12367790 ICD Code: J44.9 - CHRONIC OBSTRUCTIVE PULMONARY DISEASE, UNSPECIFIED Status : Chronic Current Visit: No - Patient Summary/Data Hospital Course: Ms. Beth is an 78-year-old woman was admitted through the emergency department with red blood per rectum consistent with lower GI bleed. She had had ongoing difficulty with rectal prolapse and on July 03 was admitted to this facility for sigmoid colon resection for management of her prolapse. She did well following surgery and was discharge to the residential. Staff at residential noted evidence of red blood per rectum and she was brought into the emergency department for further evaluation. While in the emergency department was noted to have fairly large amount of red blood per rectum. Initial hemoglobin in the emergency department was 12.1, after hydration and on follow-up hemoglobin and had dropped to 9.9. She was admitted to the intensive care unit and transfused 3 units of red blood cells. Following this her was no further evidence of active bleeding and hemoglobin remains stable following transfusion in the range of 12-13. She was also initially given IV fluids for hydration. Decision was made not to proceed with colonoscopy because of her recent surgery and anastomosis. It was felt most likely that the bleeding had occurred from the area of the anastomosis. She remained stable through the rest of her hospital stay again with no further evidence of bleeding. She was placed on a clear liquid diet which she tolerated and this was advanced to a soft low residue diet which she also tolerated without difficulty. Activity will be as tolerated and she will remain on a soft diet. She will be seen for follow-up as needed at the residential by primary care and she should keep her previously set appointment with Dr. Caballero for follow-up. Hemoglobin level should be obtained on July 14. - Patient Instructions Diet: Usual Diet as Tolerated, GI Soft/Low Residue/Low Fiber Activity: As Tolerated Other/Special Instructions: Follow-up with primary care provider at the residential as needed. Follow-up with Dr. Caballero as previously scheduled. Obtain hemoglobin level on July 14. - Discharge Plan *PRESCRIPTION DRUG MONITORING PROGRAM REVIEWED*: Not Applicable *COPY OF PRESCRIPTION DRUG MONITORING REPORT IN PATIENT NED: Not Applicable Home Medications: Home Meds Albuterol [Ventolin HFA] 2 puff IH Q6H PRN 02/14/17 [History] Albuterol/Ipratropium [DuoNeb 3.0-0.5 MG/3 ML] 3 ml IH Q4H PRN 02/14/17 [History ] Aspirin [Children's Aspirin] 81 mg PO DAILY 02/14/17 [History] Donepezil HCl [Aricept] 10 mg PO BEDTIME 02/14/17 [History] Fluticasone/Salmeterol [Advair Diskus 100-50] 1 puff INH BID 02/14/17 [History] L.acidoph,Paracasei, B.lactis [Probiotic] 1 tab PO BID 02/14/17 [History] Levothyroxine [Synthroid] 100 mcg PO ACBREAKFAST 02/14/17 [History] Mirtazapine [Remeron] 45 mg PO BEDTIME 02/14/17 [History] Multivitamin [Multiple Vitamins] 1 tab PO BID 02/17/17 [History] traMADol HCl [Tramadol HCl] 50 mg PO TID PRN 02/17/17 [History] Polyethylene Glycol 3350 [MiraLAX] 17 g PO ASDIRECTED PRN 02/27/17 [History] Magnesium Hydroxide [Milk of Magnesia] 30 ml PO DAILY 05/06/17 [History] Acetaminophen [Tylenol Extra Strength] 500 mg PO Q6HR PRN 07/02/18 [History] Trospium Chloride 20 mg PO BID 07/02/18 [History] Hydrocortisone [Preparation H] 26 gm TP QID 07/03/18 [History] Sennosides [Senna] 8.6 mg PO ASDIRECTED 07/03/18 [History] - Discharge Summary/Plan Comment DC Time >30 min.: No - Patient Data Vitals - Most Recent: Last Vital Signs Temp 97.2 F 07/12/18 07:00 Pulse 53 L 07/12/18 07:00 Resp 16 07/12/18 07:00 BP 139/64 07/12/18 07:00 Pulse Ox 98 07/12/18 07:00 Weight - Most Recent: 106 lb 8 oz I&O - Last 24 hours: Intake & Output 07/11/18 07/12/18 07/12/18 22:59 06:59 14:59 Intake Total 1400 300 Balance 1400 300 Lab Results - Last 24 hrs: Laboratory Results - last 24 hr 07/11/18 07/12/18 Range/Units 17:05 04:34 Hgb 13.2 13.0 (12.0-15.0) g/dL Med Orders - Current: Current Medications Acetaminophen (Tylenol) 650 mg PO Q4H PRN PRN Reason: Pain Last Admin: 07/11/18 20:36 Dose: 650 mg Albuterol (Ventolin Hfa) 0 gm INH Q6H PRN PRN Reason: Shortness of Breath Albuterol/Ipratropium (Duoneb 3.0-0.5 Mg/3 Ml) 3 ml INH Q4H PRN PRN Reason: Shortness of Breath Diphenhydramine HCl (Benadryl) 25 - 50 mg IVPUSH Q4H PRN PRN Reason: Itching Diphenhydramine HCl (Benadryl) 25 - 50 mg PO Q4H PRN PRN Reason: Itching Donepezil HCl (Aricept) 10 mg PO BEDTIME [facility] Last Admin: 07/11/18 20:30 Dose: 10 mg Fentanyl (Sublimaze) 10 - 30 mcg IVPUSH Q1H PRN PRN Reason: Pain (severe 7-10) Promethazine HCl 12.5 mg/ (Sodium Chloride) 50.5 mls @ 200 mls/hr IV Q8H PRN PRN Reason: Nausea/Vomiting Lactobacillus Rhamnosus (Culturelle) 1 cap PO BID [facility] Last Admin: 07/12/18 09:19 Dose: 1 cap Levothyroxine Sodium (Synthroid) 100 mcg PO DAILY@0730 [facility] Last Admin: 07/12/18 07:24 Dose: 100 mcg Mirtazapine (Remeron) 45 mg PO BEDTIME [facility] Last Admin: 07/11/18 20:30 Dose: 45 mg Mometasone Furoate/Formoterol Fumar (Dulera 100-5 Mcg) 2 puff IH BIDRT [facility] Last Admin: 07/12/18 07:17 Dose: 2 puff Morphine Sulfate (Morphine) 1 - 3 mg IVPUSH Q1H PRN PRN Reason: Pain Last Admin: 07/10/18 11:30 Dose: 1 mg Ondansetron HCl (Zofran) 4 mg IV Q8H PRN PRN Reason: Nausea/Vomiting Last Admin: 07/10/18 11:51 Dose: 4 mg Scopolamine (Transderm-Scop) 1.5 mg TRDERM Q72H PRN PRN Reason: Nausea Discontinued Medications Furosemide (Lasix) 10 mg IVPUSH ONETIME ONE Stop: 07/10/18 00:11 Last Admin: 07/10/18 01:20 Dose: 10 mg Sodium Chloride (Normal Saline) 1,000 mls @ 500 mls/hr IV ASDIRECTED [facility] Last Admin: 07/09/18 16:58 Dose: 500 mls/hr Tranexamic Acid 1,000 mg/ (Sodium Chloride) 60 mls @ 200 mls/hr IV ONETIME ONE Stop: 07/09/18 17:57 Last Admin: 07/09/18 17:37 Dose: 200 mls/hr Tranexamic Acid 1,000 mg/ (Sodium Chloride) 60 mls @ 200 mls/hr IV ONETIME ONE Stop: 07/09/18 17:44 Last Admin: 07/10/18 20:34 Dose: Not Given Sodium Chloride (Normal Saline) 1,000 mls @ 100 [facility]ls[facility] Last Admin: 07/09/18 22:53 Dose: 100 mls/hr Sodium Chloride (Normal Saline) 1,000 mls @ 50 mls/hr IV ASDIRECTED [facility] Stop: 07/10/18 17:00 Last Admin: 07/10/18 13:17 Dose: 50 mls/hr Potassium Chloride (Klor-Con M20) 40 meq PO ONETIME ONE Stop: 07/10/18 13:01 Potassium Chloride (Klor-Con M20) 40 meq PO ONETIME ONE Stop: 07/10/18 11:01 Last Admin: 07/10/18 10:56 Dose: 40 meq Potassium Chloride (Klor-Con M20) 40 meq PO ONETIME ONE Stop: 07/10/18 17:01 Last Admin: 07/10/18 17:03 Dose: 40 meq - Exam General: Reports: Alert, Cooperative, No Acute Distress, Other (Confused) Lungs: Reports: Clear to Auscultation, Normal Respiratory Effort Cardiovascular: Reports: Regular Rate, Regular Rhythm, No Murmurs GI/Abdominal Exam: Soft, Non-Tender, No Organomegaly, No Distention
[2018-07-12] MEDS ORDERED: Tranexamic Acid 1,000 MG in Sodium Chloride 0.9% 500 ML IV ONE (18:00)
== END 2018-07-12 11:30 | disposition home or self-care (01) | DRG 920 ==
LOC: JP.ED 16:31 → JP.ICU 17:56 → JP.MS 07-11 10:50
PROVIDERS: ADMIT Surgery; ATTEND Surgery
PROC: 30233N1 Transfusion of Nonautologous Red Blood Cells into Peripheral Vein, Percutaneous Approach (ICD-10-PCS; principal; 2018-07-09)
PROC: 30233N1 Transfusion of Nonautologous Red Blood Cells into Peripheral Vein, Percutaneous Approach (ICD-10-PCS; 2018-07-10)
DX: K62.5 Hemorrhage of anus and rectum (principal); K91.840 Postprocedural hemorrhage of a digestive system organ or structure following a digestive system procedure; G30.9 Alzheimer's disease, unspecified; D62 Acute posthemorrhagic anemia; M85.80 Other specified disorders of bone density and structure, unspecified site; Z90.49 Acquired absence of other specified parts of digestive tract; G30.1 Alzheimer's disease with late onset; R32 Unspecified urinary incontinence; H91.90 Unspecified hearing loss, unspecified ear; H54.7 Unspecified visual loss; Z91.040 Latex allergy status; Z79.899 Other long term (current) drug therapy; Z79.82 Long term (current) use of aspirin; Z79.51 Long term (current) use of inhaled steroids; F02.80 Dementia in other diseases classified elsewhere, unspecified severity, without behavioral disturbance, psychotic disturbance, mood disturbance, and anxiety; J44.9 Chronic obstructive pulmonary disease, unspecified; E03.9 Hypothyroidism, unspecified; F41.9 Anxiety disorder, unspecified; F32.9 Major depressive disorder, single episode, unspecified; Z66 Do not resuscitate; E87.6 Hypokalemia; Y83.8 Other surgical procedures as the cause of abnormal reaction of the patient, or of later complication, without mention of misadventure at the time of the procedure; Z91.81 History of falling
CPT/HCPCS: 36415; 36430; 80048; 80053; 83735; 85018; 85025; 85730; 86850; 86900; 86901; 86920; 86922; 94640; 96361; 96374; 96375; 99285-25; A9270-GY; J1940; J2270; J2405; J7030; J7040; J7050; P9016

== ENCOUNTER 2019-03-16 14:53 | Emergency (ER) | payer MEDICARE, OTHER ==
[2019-03-16 15:24] VITALS: BP 129/66; PULSE 62
--- NOTE | 2019-03-16 17:43 | EDM.PDOC ---
ED HPI GENERAL MEDICAL PROBLEM - General Chief Complaint: Abdominal Pain Stated Complaint: FROM CLINIC Time Seen by Provider: 03/16/19 16:15 Source of Information: Reports: Patient, Family, RN Notes Reviewed History Limitations: Reports: No Limitations - History of Present Illness INITIAL COMMENTS - FREE TEXT/NARRATIVE: 79-year-old female presents emergency department today sent over from clinic concerned about abdominal pain blood work at the clinic is unrevealing. Except for hyponatremia of 127 She does admit that she has problems with urination mainly burning frequency and urgency Abdomen Pain Score (Numeric/FACES): 5 - Related Data Allergies Allergy/AdvReac Type Severity Reaction Status Date / Time Latex, Natural Rubber Allergy Rash Verified 07/09/18 18:15 Home Meds: Home Meds Aspirin [Children's Aspirin] 81 mg PO DAILY 02/14/17 [History] Donepezil HCl [Aricept] 10 mg PO BEDTIME 02/14/17 [History] Fluticasone/Salmeterol [Advair Diskus 100-50] 1 puff INH BID 02/14/17 [History] L.acidoph,Paracasei, B.lactis [Probiotic] 1 tab PO BID 02/14/17 [History] Levothyroxine [Synthroid] 100 mcg PO ACBREAKFAST 02/14/17 [History] Mirtazapine [Remeron] 45 mg PO BEDTIME 02/14/17 [History] Multivitamin [Multiple Vitamins] 1 tab PO BID 02/17/17 [History] traMADol HCl [Tramadol HCl] 50 mg PO TID PRN 02/17/17 [History] Polyethylene Glycol 3350 [MiraLAX] 17 g PO ASDIRECTED PRN 02/27/17 [History] Magnesium Hydroxide [Milk of Magnesia] 30 ml PO DAILY 05/06/17 [History] Acetaminophen [Tylenol Extra Strength] 500 mg PO Q6HR PRN 07/02/18 [History] Trospium Chloride 20 mg PO BID 07/02/18 [History] Sennosides [Senna] 8.6 mg PO ASDIRECTED 07/03/18 [History] Past Medical History HEENT History: Reports: Hard of Hearing, Impaired Vision Respiratory History: Reports: COPD Gastrointestinal History: Reports: Diverticulosis, GI Bleed, Other (See Below) Other Gastrointestinal History: colitis Genitourinary History: Reports: Urinary Incontinence Other Genitourinary History: HEMATURIA RN MATERNITY History: Reports: Musculoskeletal History: Reports: Other (See Below) Other Musculoskeletal History: osteopenia Neurological History: Reports: Alzheimers Disease, Other (See Below) Other Neuro History: mild cognitive Psychiatric History: Reports: Alzheimers Disease, Anxiety, Dementia, Depression Endocrine/Metabolic History: Reports: Hypothyroidism - Infectious Disease History Infectious Disease History: Reports: Chicken Pox, Measles - Past Surgical History HEENT Surgical History: Reports: Cataract Surgery GI Surgical History: Reports: Colonoscopy Social & Family History - Family History Family Medical History: Noncontributory - Tobacco Use Smoking Status *Q: Never Smoker - Caffeine Use Caffeine Use: Reports: Coffee - Recreational Drug Use Recreational Drug Use: No ED ROS GENERAL - Review of Systems Review Of Systems: See Below Constitutional: Reports: No Symptoms Respiratory: Reports: No Symptoms Cardiovascular: Reports: No Symptoms GI/Abdominal: Reports: Abdominal Pain : Reports: Dysuria, Frequency, Urgency ED EXAM, GI/ABD - Physical Exam Exam: See Below Exam Limited By: No Limitations General Appearance: Alert, WD/WN, No Apparent Distress Respiratory/Chest: No Respiratory Distress GI/Abdominal Exam: Soft, Non-Tender Back Exam: Normal Inspection, Full Range of Motion. No: CVA Tenderness (R), CVA Tenderness (L) Course - Vital Signs Last Recorded V/S: Last Vital Signs Temp 96.5 F 03/16/19 15:15 Pulse 62 03/16/19 15:15 Resp 16 03/16/19 15:15 BP 129/66 03/16/19 15:15 Pulse Ox 98 03/16/19 15:15 - Orders/Labs/Meds Orders: Active Orders 24 hr Category Date Time Status Bladder Scan [RC] ASDIRECTED Care 03/16/19 15:58 Active CULTURE URINE [RM] Urgent Lab 03/16/19 17:33 Ordered Labs: Laboratory Tests 03/16/19 Range/Units 15:59 Urine Color Yellow (YELLOW) Urine Appearance Slightly cloudy A (CLEAR) Urine pH 7.0 (5.0-8.0) Ur Specific [place] 1.015 (1.008-1.030) Urine Protein Negative (NEGATIVE) mg/dL Urine Glucose (UA) Negative (NEGATIVE) mg/dL Urine Ketones Negative (NEGATIVE) mg/dL Urine Occult Blood Small H (NEGATIVE) Urine Nitrite Negative (NEGATIVE) Urine Bilirubin Negative (NEGATIVE) Urine Urobilinogen 0.2 (0.2-1.0) EU/dL Ur Leukocyte Esterase Moderate H (NEGATIVE) Urine RBC 5-10 H (0-5) Urine WBC 20-30 H (0-5) Ur Epithelial Cells Moderate Amorphous Sediment Not seen Urine Bacteria Moderate Urine Mucus Few Departure - Departure Time of Disposition: 17:45 Disposition: Home, Self-Care 01 Condition: Fair Clinical Impression: UTI (urinary tract infection) Qualifiers: Urinary tract infection type: acute cystitis Hematuria presence: with hematuria Qualified Code(s): N30.01 - Acute cystitis with hematuria - Discharge Information Referrals: PCP,None [Primary Care Provider] - Additional Instructions: Take full course of antibiotics, Please followup with your primary care provider in 3-5 days for reevaluation and follow-up of low sodium, please call return to the emergency department with worsening of symptoms. - My Orders Last 24 Hours: My Active Orders 03/16/19 15:58 Bladder Scan [RC] ASDIRECTED 03/16/19 17:33 CULTURE URINE [RM] Urgent - Assessment/Plan Last 24 Hours: My Active Orders 03/16/19 15:58 Bladder Scan [RC] ASDIRECTED 03/16/19 17:33 CULTURE URINE [RM] Urgent Plan: Assessment Acuity = acute Site and laterality = urinary tract infection Etiology = probable bacterial cause Manifestations = dysuria and abdominal discomfort Location of injury = Home Lab values = urinalysis reveals 20-30 WBCs consistent with pyuria 5-10 RBCs consistent hematuria cultures pending Plan Placed on Bactrim DS one tab by mouth twice a day 3 days culture will be available at the time the hyponatremia is new however I believe it is occurred over a long period time asked her follow-up with her primary care for further evaluation This note was dictated using [employer] voice recognition software please call with any questions on syntax or grammar.
== END 2019-03-16 17:57 | disposition home or self-care (01) ==
LOC: JP.ED 14:53
DX: N30.01 Acute cystitis with hematuria (principal); J44.9 Chronic obstructive pulmonary disease, unspecified; F41.9 Anxiety disorder, unspecified; F32.9 Major depressive disorder, single episode, unspecified; E03.9 Hypothyroidism, unspecified; Z91.040 Latex allergy status; Z79.82 Long term (current) use of aspirin; Z79.899 Other long term (current) drug therapy
CPT/HCPCS: 51798; 81001; 87086; 99284

== ENCOUNTER 2019-04-16 15:15 | Emergency (ER) | payer MEDICARE, OTHER ==
[2019-04-16 15:48] VITALS: BP 108/71; PULSE 71
--- NOTE | 2019-04-16 16:15 | EDM.PDOC ---
ED HPI GENERAL MEDICAL PROBLEM - General Chief Complaint: Genitourinary Problem Stated Complaint: PULLED CATHOTHER Time Seen by Provider: 04/16/19 16:10 Source of Information: Reports: Family, Old Records, RN History Limitations: Reports: Other (Patient with dementia) - History of Present Illness INITIAL COMMENTS - FREE TEXT/NARRATIVE: 79 yo female with dementia had a alva catheter placed yesterday ? something to do with a prolapsed uterus. Earlier today she pulled it out. The alva catheter tip is now missing and there is concern that it is still in her bladder. Was able to void here for us about 300 ml. Onset: Today Onset Date: 04/16/19 Duration: Hour(s):, Constant Location: Reports: Pelvis Quality: Reports: Other (no current pain reported. ) Severity: Mild Improves with: Reports: None Worsens with: Reports: None Context: Reports: Other (See HPI) Associated Symptoms: Reports: No Other Symptoms Treatments FRONT OFFICE REPRESENTATIVE: Reports: Other (see below) (none) - Related Data Allergies Allergy/AdvReac Type Severity Reaction Status Date / Time Latex, Natural Rubber Allergy Rash Verified 04/16/19 15:50 Home Meds: Home Meds Aspirin [Children's Aspirin] 81 mg PO DAILY 02/14/17 [History] Donepezil HCl [Aricept] 10 mg PO BEDTIME 02/14/17 [History] Fluticasone/Salmeterol [Advair Diskus 100-50] 1 puff INH BID 02/14/17 [History] L.acidoph,Paracasei, B.lactis [Probiotic] 1 tab PO BID 02/14/17 [History] Levothyroxine [Synthroid] 100 mcg PO ACBREAKFAST 02/14/17 [History] Mirtazapine [Remeron] 45 mg PO BEDTIME 02/14/17 [History] Multivitamin [Multiple Vitamins] 1 tab PO BID 02/17/17 [History] traMADol HCl [Tramadol HCl] 50 mg PO TID PRN 02/17/17 [History] Polyethylene Glycol 3350 [MiraLAX] 17 g PO ASDIRECTED PRN 02/27/17 [History] Magnesium Hydroxide [Milk of Magnesia] 30 ml PO DAILY 05/06/17 [History] Acetaminophen [Tylenol Extra Strength] 500 mg PO Q6HR PRN 07/02/18 [History] Trospium Chloride 20 mg PO BID 07/02/18 [History] Sennosides [Senna] 8.6 mg PO ASDIRECTED 07/03/18 [History] Past Medical History HEENT History: Reports: Hard of Hearing, Impaired Vision Respiratory History: Reports: COPD Gastrointestinal History: Reports: Diverticulosis, GI Bleed, Other (See Below) Other Gastrointestinal History: colitis Genitourinary History: Reports: Urinary Incontinence Other Genitourinary History: HEMATURIA ROBOTICS APPLICATION ENGINEER History: Reports: , Prolapsed Uterus Musculoskeletal History: Reports: Other (See Below) Other Musculoskeletal History: osteopenia Neurological History: Reports: Alzheimers Disease, Other (See Below) Other Neuro History: mild cognitive Psychiatric History: Reports: Alzheimers Disease, Anxiety, Dementia, Depression Endocrine/Metabolic History: Reports: Hypothyroidism - Infectious Disease History Infectious Disease History: Reports: Chicken Pox, Measles - Past Surgical History HEENT Surgical History: Reports: Cataract Surgery Respiratory Surgical History: Reports: None GI Surgical History: Reports: Colonoscopy Social & Family History - Family History Family Medical History: Noncontributory - Caffeine Use Caffeine Use: Reports: Coffee ED ROS GENERAL - Review of Systems Review Of Systems: ROS reveals no pertinent complaints other than HPI. Constitutional: Reports: No Symptoms : Reports: Other (alva catheter pulled out today.) Skin: Reports: No Symptoms Neurological: Reports: Confusion (chronic) Psychiatric: Reports: Other (dementia) ED EXAM, RENAL/ - Physical Exam Exam: See Below Exam Limited By: No Limitations General Appearance: Alert, WD/WN, No Apparent Distress (Female) Exam: Other (no bladder distention) Neurological: Alert, Confused (mild), Memory Loss Remote Events, Memory Loss Recent Events Psychiatric: Normal Affect, Normal Mood Skin Exam: Warm, Dry, Intact, Normal Color, No Rash Course - Vital Signs Last Recorded V/S: Last Vital Signs Temp 36.9 C 04/16/19 15:52 Pulse 71 04/16/19 15:52 Resp 14 04/16/19 15:52 BP 108/71 04/16/19 15:52 Pulse Ox 97 04/16/19 15:52 - Orders/Labs/Meds Orders: Active Orders 24 hr Category Date Time Status Alva Catheter Insertion [Insert Urinary Catheter] [OM. Care 04/16/19 15:30 Ordered PC] Q24H Abdomen 1V Flat [CR] Stat Exams 04/16/19 16:13 Taken Labs: Laboratory Tests 04/16/19 Range/Units 16:03 Urine Color Yellow (YELLOW) Urine Appearance Clear (CLEAR) Urine pH 5.5 (5.0-8.0) Ur Specific [place] 1.015 (1.008-1.030) Urine Protein Negative (NEGATIVE) mg/dL Urine Glucose (UA) Negative (NEGATIVE) mg/dL Urine Ketones Negative (NEGATIVE) mg/dL Urine Occult Blood Trace-intact H (NEGATIVE) Urine Nitrite Negative (NEGATIVE) Urine Bilirubin Negative (NEGATIVE) Urine Urobilinogen 0.2 (0.2-1.0) EU/dL Ur Leukocyte Esterase Negative (NEGATIVE) Urine RBC 0-5 (0-5) Urine WBC 0-5 (0-5) Ur Epithelial Cells Rare Amorphous Sediment Not seen Urine Bacteria Few Urine Mucus Not seen - Radiology Interpretation Free Text/Narrative:: KUB [id number] stool, no FB seen in bladder Departure - Departure Time of Disposition: 16:57 Disposition: Home, Self-Care 01 Condition: Good Clinical Impression: Alva catheter problem Qualifiers: Encounter type: initial encounter Qualified Code(s): T83.9XXA - Unspecified complication of genitourinary prosthetic device, implant and graft, initial encounter Constipation Qualifiers: Constipation type: slow transit constipation Qualified Code(s): K59.01 - Slow transit constipation - Discharge Information *PRESCRIPTION DRUG MONITORING PROGRAM REVIEWED*: No *COPY OF PRESCRIPTION DRUG MONITORING REPORT IN PATIENT NED: No Referrals: Yossi Orona MD [Primary Care Provider] - Forms: ED Department Discharge Additional Instructions: Add Miralax one dose daily to your current medications for constipation. Discuss the catheter situation with her ROBOTICS APPLICATION ENGINEER. Return as needed. - My Orders Last 24 Hours: My Active Orders 04/16/19 15:30 Alva Catheter Insertion [Insert Urinary Catheter] [OM.PC] Q24H 04/16/19 16:13 Abdomen 1V Flat [CR] Stat - Assessment/Plan Last 24 Hours: My Active Orders 04/16/19 15:30 Alva Catheter Insertion [Insert Urinary Catheter] [OM.PC] Q24H 04/16/19 16:13 Abdomen 1V Flat [CR] Stat
--- NOTE | 2019-04-16 17:05 | CRLCR ---
Indication: Assess Hayden catheter position Technique: Upright and supine views of the abdomen Comparison: X-ray abdomen 02/27/2017 Findings/Impression: Hayden catheter balloon is not appreciated in the visualized pelvis. Surgical anastomosis is noted. There are no abnormally distended small bowel loops. Prominent fecal material is seen in the colon. Dictated by Angelina Robledo MD @ Apr 16 2019 5:02PM Signed by Dr. Angelina Robledo @ Apr 16 2019 5:02PM
== END 2019-04-16 17:06 | disposition home or self-care (01) ==
LOC: JP.ED 15:15
DX: T83.9XXA Unspecified complication of genitourinary prosthetic device, implant and graft, initial encounter (principal); K59.01 Slow transit constipation; J44.9 Chronic obstructive pulmonary disease, unspecified; G30.9 Alzheimer's disease, unspecified; F02.80 Dementia in other diseases classified elsewhere, unspecified severity, without behavioral disturbance, psychotic disturbance, mood disturbance, and anxiety; E03.9 Hypothyroidism, unspecified; Z79.51 Long term (current) use of inhaled steroids; Z79.82 Long term (current) use of aspirin
CPT/HCPCS: 51702; 74018; 81001; 99283-25

== ENCOUNTER 2019-04-24 21:44 | Emergency (ER) | payer MEDICARE, OTHER ==
[2019-04-24] MEDS ORDERED: Acetaminophen 500 MG Tab PO ONE (22:37)
--- NOTE | 2019-04-24 22:43 | EDM.PDOC ---
ED HPI GENERAL MEDICAL PROBLEM - General Chief Complaint: Abdominal Pain Stated Complaint: ABD PAIN WEAKNESS Time Seen by Provider: 04/24/19 22:30 Source of Information: Reports: Patient, Old Records, RN History Limitations: Reports: Other (patient with dementia) - History of Present Illness INITIAL COMMENTS - FREE TEXT/NARRATIVE: 79 yo female was sent to the ER for evaluation by the staff at her assisted living facility for low abdominal pain and leg weakness. Patient has dementia and is not a reliable historian. She was seen here recently after she had pulled out a alva catheter that had been placed that day by her BULKING MACHINE OPERATOR doctor in conjunction with a pessary for uterine prolapse and some concern about urinary retention. We decided with family's help not to put the catheter back in due to anticipating that Marisa would likely just pull it out again. She had some mild discomfort from the pessary that day and her pain reported today is in the same location in her central pelvis. Not in our ER she denies any leg weakness and has been to the bathroom without assistance without issue. Onset: Unknown/Unsure Location: Reports: Pelvis (suprapubic location) Quality: Reports: Dull Severity: Mild Improves with: Reports: Other (unknown) Worsens with: Reports: Other (unknown) Context: Reports: Other (see HPI) Associated Symptoms: Reports: No Other Symptoms Treatments REFINISH TECHNICIAN: Reports: Other (see below) (none) - Related Data Allergies Allergy/AdvReac Type Severity Reaction Status Date / Time Latex, Natural Rubber Allergy Rash Verified 04/24/19 23:33 Home Meds: Home Meds Aspirin [Children's Aspirin] 81 mg PO DAILY 02/14/17 [History] Donepezil HCl [Aricept] 10 mg PO BEDTIME 02/14/17 [History] Fluticasone/Salmeterol [Advair Diskus 100-50] 1 puff INH BID 02/14/17 [History] L.acidoph,Paracasei, B.lactis [Probiotic] 1 tab PO BID 02/14/17 [History] Levothyroxine [Synthroid] 100 mcg PO ACBREAKFAST 02/14/17 [History] Mirtazapine [Remeron] 30 mg PO BEDTIME 02/14/17 [History] Multivitamin [Multiple Vitamins] 1 tab PO BID 02/17/17 [History] traMADol HCl [Tramadol HCl] 50 mg PO TID 02/17/17 [History] Polyethylene Glycol 3350 [MiraLAX] 17 g PO ASDIRECTED PRN 02/27/17 [History] Magnesium Hydroxide [Milk of Magnesia] 30 ml PO DAILY 05/06/17 [History] Acetaminophen [Tylenol Extra Strength] 500 mg PO Q6HR PRN 07/02/18 [History] Trospium Chloride 20 mg PO BID 07/02/18 [History] Sennosides [Senna] 8.6 mg PO ASDIRECTED 07/03/18 [History] Estradiol [Estrace Vaginal] 1 applic VAG BEDTIME 04/24/19 [History] Trimo-Becerra Gel (Oxyquinolone [place] 0.5 applic VAG DAILY 04/24/19 [History] Past Medical History HEENT History: Reports: Hard of Hearing, Impaired Vision Respiratory History: Reports: COPD Gastrointestinal History: Reports: Diverticulosis, GI Bleed, Other (See Below) Other Gastrointestinal History: colitis Genitourinary History: Reports: Urinary Incontinence Other Genitourinary History: 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 PORTER SAMPLE CASE History: Reports: , Prolapsed Uterus Musculoskeletal History: Reports: Other (See Below) Other Musculoskeletal History: osteopenia Neurological History: Reports: Alzheimers Disease, Other (See Below) Other Neuro History: mild cognitive Psychiatric History: Reports: Alzheimers Disease, Anxiety, Dementia, Depression Endocrine/Metabolic History: Reports: Hypothyroidism - Infectious Disease History Infectious Disease History: Reports: Chicken Pox, Measles - Past Surgical History HEENT Surgical History: Reports: Cataract Surgery Respiratory Surgical History: Reports: None GI Surgical History: Reports: Colonoscopy Social & Family History - Family History Family Medical History: Noncontributory - Caffeine Use Caffeine Use: Reports: Coffee ED ROS GENERAL - Review of Systems Review Of Systems: ROS reveals no pertinent complaints other than HPI. GI/Abdominal: Reports: Other (suprapubic pain). Denies: Black Stool, Bloody Stool, Diarrhea, Hematochezia, Nausea, Vomiting : Reports: No Symptoms ED EXAM, GI/ABD - Physical Exam Exam: See Below Exam Limited By: No Limitations General Appearance: Alert, WD/WN, No Apparent Distress Eyes: Bilateral: Normal Appearance Ears: Normal External Exam, Normal Canal, Hearing Loss Nose: Normal Inspection, No Blood Throat/Mouth: Normal Inspection, Normal Lips, Normal Oropharynx, Normal Voice, No Airway Compromise Head: Atraumatic, Normocephalic Neck: Normal Inspection Respiratory/Chest: No Respiratory Distress, Lungs Clear, Normal Breath Sounds, No Accessory Muscle Use Cardiovascular: Regular Rate, Rhythm, No Edema GI/Abdominal Exam: Normal Bowel Sounds, Soft, Non-Tender, No Distention Back Exam: Normal Inspection. No: CVA Tenderness (R), CVA Tenderness (L) Extremities: Normal Inspection, Normal Range of Motion, Non-Tender, No Pedal Edema. No: Leg Pain, Limited Range of Motion, Redness Neurological: Alert, CN II-XII Intact, No Motor/Sensory Deficits, Confused ( chronic), Disoriented (chronic), Other (pleasant) Psychiatric: Normal Affect, Normal Mood Skin Exam: Warm, Dry, Intact, Normal Color, No Rash Course - Vital Signs Last Recorded V/S: Last Vital Signs Temp 35.8 C 04/24/19 23:13 Pulse 59 L 04/24/19 23:13 Resp 17 04/24/19 23:13 BP 132/65 04/24/19 23:13 Pulse Ox 99 04/24/19 23:13 - Orders/Labs/Meds Orders: Active Orders 24 hr Category Date Time Status Bladder Scan [RC] ASDIRECTED Care 04/24/19 22:33 Active Labs: Laboratory Tests 04/24/19 Range/Units 23:02 Urine Color Yellow (YELLOW) Urine Appearance Cloudy A (CLEAR) Urine pH 7.0 (5.0-8.0) Ur Specific [place] 1.015 (1.008-1.030) Urine Protein Negative (NEGATIVE) mg/dL Urine Glucose (UA) Negative (NEGATIVE) mg/dL Urine Ketones Negative (NEGATIVE) mg/dL Urine Occult Blood Small H (NEGATIVE) Urine Nitrite Negative (NEGATIVE) Urine Bilirubin Negative (NEGATIVE) Urine Urobilinogen 0.2 (0.2-1.0) EU/dL Ur Leukocyte Esterase Trace H (NEGATIVE) Urine RBC 0-5 (0-5) Urine WBC 0-5 (0-5) Ur Epithelial Cells Many Amorphous Sediment Not seen Urine Bacteria Few Urine Mucus Not seen Meds: Medications Discontinued Medications Generic Name Dose Route Start Last Admin Trade Name Freq PRN Reason Stop Dose Admin Acetaminophen 500 mg 04/24/19 22:37 04/24/19 23:11 Tylenol Extra Strength PO 04/24/19 22:38 500 mg ONETIME ONE Administration Departure - Departure Time of Disposition: 23:46 Disposition: Home, Self-Care 01 Condition: Good Clinical Impression: Vaginal irritation from pessary - Discharge Information *PRESCRIPTION DRUG MONITORING PROGRAM REVIEWED*: No *COPY OF PRESCRIPTION DRUG MONITORING REPORT IN PATIENT NED: No Referrals: PCP,None [Primary Care Provider] - Forms: ED Department Discharge Additional Instructions: Give acetaminophen 500-1000 mg every 6 hrs as needed for pain relief. Recheck if worse. F/U with primary care provider next week if still having complaints. - My Orders Last 24 Hours: My Active Orders 04/24/19 22:33 Bladder Scan [RC] ASDIRECTED - Assessment/Plan Last 24 Hours: My Active Orders 04/24/19 22:33 Bladder Scan [RC] ASDIRECTED
[2019-04-24 23:17] VITALS: BP 132/65; PULSE 59
== END 2019-04-25 00:56 | disposition home or self-care (01) ==
LOC: JP.ED 21:44
DX: T83.89XA Other specified complication of genitourinary prosthetic devices, implants and grafts, initial encounter (principal); N89.8 Other specified noninflammatory disorders of vagina; J44.9 Chronic obstructive pulmonary disease, unspecified; G30.9 Alzheimer's disease, unspecified; F02.80 Dementia in other diseases classified elsewhere, unspecified severity, without behavioral disturbance, psychotic disturbance, mood disturbance, and anxiety; E03.9 Hypothyroidism, unspecified; F32.9 Major depressive disorder, single episode, unspecified; Z79.51 Long term (current) use of inhaled steroids; Z79.82 Long term (current) use of aspirin; Z79.890 Hormone replacement therapy; Z79.899 Other long term (current) drug therapy; Z91.040 Latex allergy status; Z96.0 Presence of urogenital implants; Y84.8 Other medical procedures as the cause of abnormal reaction of the patient, or of later complication, without mention of misadventure at the time of the procedure
CPT/HCPCS: 51798; 81001; 99285; A9270; 99283

== ENCOUNTER 2019-04-27 09:03 | Emergency (ER) | payer MEDICARE, OTHER ==
--- NOTE | 2019-04-27 09:44 | EDM.PDOC ---
ED HPI GENERAL MEDICAL PROBLEM - General Chief Complaint: Back Pain or Injury Stated Complaint: MEDICAL [facility] Time Seen by Provider: 04/27/19 09:42 Source of Information: Reports: Patient, Family, Shelter Records, Other History Limitations: Reports: No Limitations - History of Present Illness INITIAL COMMENTS - FREE TEXT/NARRATIVE: pt tripped over a chair and she fell and hit her lower back. She is rating her pain at about a 7. Onset: Today, Sudden, Other (pt fell this am. ) Duration: Hour(s): Location: Reports: Back Associated Symptoms: Reports: No Other Symptoms Left Lower Back Pain Score (Numeric/FACES): 8 - Related Data Allergies Allergy/AdvReac Type Severity Reaction Status Date / Time Latex, Natural Rubber Allergy Rash Verified 04/27/19 09:20 Home Meds: Home Meds Aspirin [Children's Aspirin] 81 mg PO DAILY 02/14/17 [History] Donepezil HCl [Aricept] 10 mg PO BEDTIME 02/14/17 [History] Fluticasone/Salmeterol [Advair Diskus 100-50] 1 puff INH BID 02/14/17 [History] L.acidoph,Paracasei, B.lactis [Probiotic] 1 tab PO BID 02/14/17 [History] Levothyroxine [Synthroid] 100 mcg PO ACBREAKFAST 02/14/17 [History] Mirtazapine [Remeron] 30 mg PO BEDTIME 02/14/17 [History] Multivitamin [Multiple Vitamins] 1 tab PO BID 02/17/17 [History] traMADol HCl [Tramadol HCl] 50 mg PO TID 02/17/17 [History] Polyethylene Glycol 3350 [MiraLAX] 17 g PO ASDIRECTED PRN 02/27/17 [History] Magnesium Hydroxide [Milk of Magnesia] 30 ml PO DAILY 05/06/17 [History] Acetaminophen [Tylenol Extra Strength] 500 mg PO Q6HR PRN 07/02/18 [History] Trospium Chloride 20 mg PO BID 07/02/18 [History] Sennosides [Senna] 8.6 mg PO ASDIRECTED 07/03/18 [History] Estradiol [Estrace Vaginal] 1 applic VAG BEDTIME 04/24/19 [History] Trimo-Becerra Gel (Oxyquinolone Chappell 0.5 applic VAG DAILY 04/24/19 [History] Past Medical History HEENT History: Reports: Hard of Hearing, Impaired Vision Respiratory History: Reports: COPD Gastrointestinal History: Reports: Diverticulosis, GI Bleed, Other (See Below) Other Gastrointestinal History: colitis Genitourinary History: Reports: Urinary Incontinence Other Genitourinary History: HEMATURIA INFORMATION SYSTEMS MANAGER History: Reports: , Prolapsed Uterus Musculoskeletal History: Reports: Other (See Below) Other Musculoskeletal History: osteopenia Neurological History: Reports: Alzheimers Disease, Other (See Below) Other Neuro History: mild cognitive Psychiatric History: Reports: Alzheimers Disease, Anxiety, Dementia, Depression Endocrine/Metabolic History: Reports: Hypothyroidism - Infectious Disease History Infectious Disease History: Reports: Chicken Pox, Measles - Past Surgical History HEENT Surgical History: Reports: Cataract Surgery Respiratory Surgical History: Reports: None GI Surgical History: Reports: Colonoscopy Endocrine Surgical History: Reports: None Neurological Surgical History: Reports: None Musculoskeletal Surgical History: Reports: None Dermatological Surgical History: Reports: None Social & Family History - Family History Family Medical History: Noncontributory - Tobacco Use Smoking Status *Q: Unknown Ever Smoked Second Hand Smoke Exposure: No - Caffeine Use Caffeine Use: Reports: Coffee - Recreational Drug Use Recreational Drug Use: No ED ROS GENERAL - Review of Systems Review Of Systems: See Below Constitutional: Reports: No Symptoms HEENT: Reports: No Symptoms Respiratory: Reports: No Symptoms Cardiovascular: Reports: No Symptoms Endocrine: Reports: No Symptoms GI/Abdominal: Reports: No Symptoms : Reports: No Symptoms Musculoskeletal: Reports: Other (pain in lower back) Skin: Reports: No Symptoms ED EXAM,LOWER BACK PAIN/INJURY - Physical Exam Exam: See Below Text/Narrative:: pt arrived complaining of pain in the lumbar area. . She tripped over a chair. - - and fell. She is uncomfortable with movement. Exam Limited By: No Limitations General Appearance: Alert, Anxious, Moderate Distress Eye Exam: Right Eye: Nystagmus Ears: Normal TMs Nose: Normal Inspection Throat/Mouth: Normal Inspection Head: Atraumatic Neck: Normal Inspection Respiratory/Chest: No Respiratory Distress Cardiovascular: Regular Rate, Rhythm GI/Abdominal: Soft, Non-Tender (Female) Exam: Deferred Rectal (Female) Exam: Deferred Back Exam: Other (pt is tender over the lower lumbar area. ) Extremities: Normal Inspection, Other (pt is not having pain when her hips are stressed. ) Neurological: Alert, Other (pt is quite forgetful. ) Psychiatric: Normal Affect Course - Vital Signs Last Recorded V/S: Last Vital Signs Temp 36.8 C 04/27/19 09:12 Pulse 67 04/27/19 10:10 Resp 16 04/27/19 10:10 BP 120/69 04/27/19 10:10 Pulse Ox 99 04/27/19 10:10 - Orders/Labs/Meds Labs: Laboratory Tests 04/27/19 04/27/19 Range/Units 09:49 09:49 WBC 6.8 (4.5-11.0) K/uL RBC 4.34 (3.30-5.50) M/uL Hgb 13.1 (12.0-15.0) g/dL Hct 40.4 (36.0-48.0) % MCV 93 (80-98) fL MCH 30 (27-31) pg MCHC 32 (32-36) % Plt Count 379 (150-400) K/uL Neut % (Auto) 67 H (36-66) % Lymph % (Auto) 21 L (24-44) % [place] % (Auto) 8 H (2-6) % Eos % (Auto) 3 (2-4) % Baso % (Auto) 0 (0-1) % Sodium 138 L (140-148) mmol/L Potassium 4.0 (3.6-5.2) mmol/L Chloride 102 (100-108) mmol/L Carbon Dioxide 29 (21-32) mmol/L Anion Gap 11.0 (5.0-14.0) mmol/L BUN 7 (7-18) mg/dL Creatinine 0.6 (0.6-1.0) mg/dL Est Cr Clr Drug Dosing 57.92 mL/min Estimated GFR (MDRD) > 60 (>60) Glucose 106 (74-106) mg/dL Calcium 9.1 (8.5-10.1) mg/dL Total Bilirubin 0.4 (0.2-1.0) mg/dL AST 23 (15-37) U/L ALT 22 (12-78) U/L Alkaline Phosphatase 74 (46-116) U/L Total Protein 6.8 (6.4-8.2) g/dL Albumin 3.3 L (3.4-5.0) g/dL Globulin 3.5 (2.3-3.5) g/dL Albumin/Globulin Ratio 0.9 L (1.2-2.2) Meds: Medications Discontinued Medications Generic Name Dose Route Start Last Admin Trade Name Freq PRN Reason Stop Dose Admin Ketorolac Tromethamine 30 mg 04/27/19 10:37 04/27/19 11:03 Toradol IVPUSH 04/27/19 10:38 30 mg ONETIME ONE Administration - Re-Assessments/Exams Free Text/Narrative Re-Assessment/Exam: 04/27/19 11:22 xray of the pelvis and her lumbar spine was obtaind which showed severe degenmerative changes in the lumbar area. No fractures either in the pelvis or lumbar area. Departure - Departure Time of Disposition: 11:16 Disposition: Home, Self-Care 01 Condition: Fair Clinical Impression: Lumbar contusion, Degenerative arthritis of lumbar spine - Discharge Information Referrals: PCP,None [Primary Care Provider] - Forms: ED Department Discharge Care Plan Goals: moist heat to area, consider pt for ambulation, continue tramodol as ordered. Use 500mg of tylenol q6h regularly not just PRN, norco 5/32d q6h prn for severe pain for next 3-4 days, consider moving pt from the apartment to the group home at this point.
[2019-04-27 10:11] VITALS: BP 120/69; PULSE 67
[2019-04-27] MEDS ORDERED: Ketorolac 30 MG/ML SDV IVPUSH ONE (10:37)
--- NOTE | 2019-04-27 10:40 | CRLCR ---
2 views of the pelvis and hips. INDICATION: Pain. IMPRESSION: Bones are mildly demineralized. No visualized fracture. Alignments anatomic. Some mild symmetric joint space narrowing in both hips. Lumbosacral disc narrowing along the left side with asymmetric sclerosis. Dictated by Mingo Long MD @ Apr 27 2019 10:36AM Signed by Dr. Mingo Long @ Apr 27 2019 10:37AM
--- NOTE | 2019-04-27 10:42 | CRLCR ---
3 VIEWS lumbar spine. INDICATION: Pain after a fall IMPRESSION: 1. Of disc it degeneration and rotary curvature lumbosacral junction. 2. No signs for compression fracture. FINDINGS: Alignment: There is a short segment rotary curve convex left involving the L4 and L5 segments. No listhesis. Straightening and loss of the lumbar lordosis Osseous structures: No compression fractures. Disc spaces: Discogenic narrowing at L4-5 and L5-S1. Miscellaneous: Gassy is distention of the colon with colonic stool. Dictated by Mingo Long MD @ Apr 27 2019 10:38AM Signed by Dr. Mingo Long @ Apr 27 2019 10:41AM
== END 2019-04-27 13:10 | disposition home or self-care (01) ==
LOC: JP.ED 09:03
DX: S30.0XXA Contusion of lower back and pelvis, initial encounter (principal); M47.9 Spondylosis, unspecified; J44.9 Chronic obstructive pulmonary disease, unspecified; G30.9 Alzheimer's disease, unspecified; F02.80 Dementia in other diseases classified elsewhere, unspecified severity, without behavioral disturbance, psychotic disturbance, mood disturbance, and anxiety; F32.9 Major depressive disorder, single episode, unspecified; Z91.040 Latex allergy status; Z79.82 Long term (current) use of aspirin; Z79.51 Long term (current) use of inhaled steroids; Z79.899 Other long term (current) drug therapy; W01.10XA Fall on same level from slipping, tripping and stumbling with subsequent striking against unspecified object, initial encounter
CPT/HCPCS: 36415; 72100; 72170; 80053; 85025; 96374; 99283; 99284; J1885

== ENCOUNTER 2019-06-16 13:23 | Emergency (ER) | payer MEDICARE, OTHER ==
--- NOTE | 2019-06-16 17:05 | CRLCR ---
Indication: Abdominal pain. Technique: AP supine and upright views of the abdomen and pelvis. Comparison: April 16, 2019. Findings: The bowel gas pattern is nonobstructive. No free air is identified. Degenerative changes of the spine are identified. A minimal amount of stool is identified within the colon. Impression: Nonobstructive bowel gas pattern. No free air Dictated by Ana Coley MD @ Jun 16 2019 5:03PM Signed by Dr. Ana Coley @ Jun 16 2019 5:04PM
[2019-06-16 17:13] VITALS: BP 128/73; PULSE 72
--- NOTE | 2019-06-16 17:42 | EDM.PDOC ---
ED HPI GENERAL MEDICAL PROBLEM - General Chief Complaint: Gastrointestinal Problem Stated Complaint: bladder pain Time Seen by Provider: 06/16/19 17:37 Source of Information: Reports: Patient History Limitations: Reports: No Limitations - History of Present Illness INITIAL COMMENTS - FREE TEXT/NARRATIVE: pt had a sudden onset of asbdomanal pain,. She has been going to [place] frequently. She does not have a fever. She told her daughter that she had chest pain. She has not complained of chest pain since she arrived. She has not had abdomanal pain since she arrived. Onset: Today, Sudden Duration: Hour(s): Location: Reports: Chest, Abdomen Associated Symptoms: Reports: No Other Symptoms bladder Pain Score (Numeric/FACES): 5 - Related Data Allergies Allergy/AdvReac Type Severity Reaction Status Date / Time Latex, Natural Rubber Allergy Rash Verified 04/27/19 09:20 Home Meds: Home Meds Aspirin [Children's Aspirin] 81 mg PO DAILY 02/14/17 [History] Donepezil HCl [Aricept] 10 mg PO BEDTIME 02/14/17 [History] Fluticasone/Salmeterol [Advair Diskus 100-50] 1 puff INH BID 02/14/17 [History] L.acidoph,Paracasei, B.lactis [Probiotic] 1 tab PO BID 02/14/17 [History] Levothyroxine [Synthroid] 100 mcg PO ACBREAKFAST 02/14/17 [History] Mirtazapine [Remeron] 30 mg PO BEDTIME 02/14/17 [History] Multivitamin [Multiple Vitamins] 1 tab PO BID 02/17/17 [History] traMADol HCl [Tramadol HCl] 50 mg PO TID 02/17/17 [History] Polyethylene Glycol 3350 [MiraLAX] 17 g PO ASDIRECTED PRN 02/27/17 [History] Magnesium Hydroxide [Milk of Magnesia] 30 ml PO DAILY 05/06/17 [History] Acetaminophen [Tylenol Extra Strength] 500 mg PO Q6HR PRN 07/02/18 [History] Trospium Chloride 20 mg PO BID 07/02/18 [History] Sennosides [Senna] 8.6 mg PO ASDIRECTED 07/03/18 [History] Trimo-Becerra Gel (Oxyquinolone Chappell 0.5 applic VAG DAILY 04/24/19 [History] estradioL [Estrace Vaginal] 1 applic VAG BEDTIME 04/24/19 [History] Past Medical History HEENT History: Reports: Hard of Hearing, Impaired Vision Respiratory History: Reports: COPD Gastrointestinal History: Reports: Diverticulosis, GI Bleed, Other (See Below) Other Gastrointestinal History: colitis Genitourinary History: Reports: Urinary Incontinence Other Genitourinary History: [employer] History: Reports: , Prolapsed Uterus Musculoskeletal History: Reports: Other (See Below) Other Musculoskeletal History: osteopenia Neurological History: Reports: Alzheimers Disease, Other (See Below) Other Neuro History: mild cognitive Psychiatric History: Reports: Alzheimers Disease, Anxiety, Dementia, Depression Endocrine/Metabolic History: Reports: Hypothyroidism - Infectious Disease History Infectious Disease History: Reports: Chicken Pox, Measles - Past Surgical History HEENT Surgical History: Reports: Cataract Surgery Respiratory Surgical History: Reports: None GI Surgical History: Reports: Colonoscopy Endocrine Surgical History: Reports: None Neurological Surgical History: Reports: None Musculoskeletal Surgical History: Reports: None Dermatological Surgical History: Reports: None Social & Family History - Family History Family Medical History: Noncontributory - Tobacco Use Smoking Status *Q: Never Smoker - Caffeine Use Caffeine Use: Reports: Coffee ED ROS GENERAL - Review of Systems Review Of Systems: See Below Constitutional: Reports: No Symptoms HEENT: Reports: No Symptoms Respiratory: Reports: No Symptoms Cardiovascular: Reports: No Symptoms Endocrine: Reports: No Symptoms GI/Abdominal: Reports: Abdominal Pain, Other (pt has not had pain since arrival. ) : Reports: Frequency Musculoskeletal: Reports: No Symptoms Skin: Reports: No Symptoms ED EXAM, GI/ABD - Physical Exam Exam: See Below Text/Narrative:: pt arrived coming from [facility] with abdomanal pain. She was completely conmfortable after arrival. She has had some urionAry frequency. Exam Limited By: No Limitations General Appearance: Alert, Anxious, Moderate Distress Ears: Normal TMs Nose: Normal Inspection Throat/Mouth: Normal Inspection Head: Atraumatic Neck: Normal Inspection Respiratory/Chest: No Respiratory Distress Cardiovascular: Regular Rate, Rhythm GI/Abdominal Exam: Soft, Non-Tender (Female) Exam: Deferred Rectal (Female) Exam: Other (pt has a large rectal prolapse and probably does bleed from time to time. She does not have hard stool in the rectum. She has a pessary in the vaginia. ) Back Exam: Normal Inspection Extremities: Normal Inspection Neurological: Alert, Oriented, Normal Cognition Course - Vital Signs Last Recorded V/S: Last Vital Signs Temp 36.8 C 06/16/19 17:12 Pulse 72 06/16/19 17:12 Resp 16 06/16/19 17:12 BP 128/73 06/16/19 17:12 Pulse Ox 99 06/16/19 17:12 - Orders/Labs/Meds Orders: Active Orders 24 hr Category Date Time Status EKG Documentation Completion [RC] ASDIRECTED Care 06/16/19 16:19 Active EKG 12 Lead [EK] Routine Ther 06/16/19 16:19 Ordered Labs: Laboratory Tests 06/16/19 06/16/19 06/16/19 Range/Units 14:22 14:22 14:22 WBC 6.7 (4.5-11.0) K/uL RBC 3.86 (3.30-5.50) M/uL Hgb 11.5 L (12.0-15.0) g/dL Hct 36.4 (36.0-48.0) % MCV 94 (80-98) fL MCH 30 (27-31) pg MCHC 32 (32-36) % Plt Count 400 (150-400) K/uL Neut % (Auto) 54 (36-66) % Lymph % (Auto) 32 (24-44) % Wake % (Auto) 10 H (2-6) % Eos % (Auto) 4 (2-4) % Baso % (Auto) 0 (0-1) % Sodium 135 L (140-148) mmol/L Potassium 4.0 (3.6-5.2) mmol/L Chloride 98 L (100-108) mmol/L Carbon Dioxide 28 (21-32) mmol/L Anion Gap 13.0 (5.0-14.0) mmol/L BUN 13 D (7-18) mg/dL Creatinine 0.6 (0.6-1.0) mg/dL Est Cr Clr Drug Dosing 57.92 mL/min Estimated GFR (MDRD) > 60 (>60) Glucose 100 (74-106) mg/dL Calcium 8.9 (8.5-10.1) mg/dL Total Bilirubin 0.2 (0.2-1.0) mg/dL AST 22 (15-37) U/L ALT 24 (12-78) U/L Alkaline Phosphatase 89 (46-116) U/L Troponin I (0.000-0.056) ng/mL C-Reactive Protein 1.02 H (0.0-0.3) mg/dL Total Protein 6.6 (6.4-8.2) g/dL Albumin 3.1 L (3.4-5.0) g/dL Globulin 3.5 (2.3-3.5) g/dL Albumin/Globulin Ratio 0.9 L (1.2-2.2) Urine Color (YELLOW) Urine Appearance (CLEAR) Urine pH (5.0-8.0) Ur Specific [place] (1.008-1.030) Urine Protein (NEGATIVE) mg/dL Urine Glucose (UA) (NEGATIVE) mg/dL Urine Ketones (NEGATIVE) mg/dL Urine Occult Blood (NEGATIVE) Urine Nitrite (NEGATIVE) Urine Bilirubin (NEGATIVE) Urine Urobilinogen (0.2-1.0) EU/dL Ur Leukocyte Esterase (NEGATIVE) Urine RBC (0-5) Urine WBC (0-5) Ur Epithelial Cells Amorphous Sediment Urine Bacteria Urine Mucus 06/16/19 06/16/19 Range/Units 14:22 14:46 WBC (4.5-11.0) K/uL RBC (3.30-5.50) M/uL Hgb (12.0-15.0) g/dL Hct (36.0-48.0) % MCV (80-98) fL MCH (27-31) pg MCHC (32-36) % Plt Count (150-400) K/uL Neut % (Auto) (36-66) % Lymph % (Auto) (24-44) % Wake % (Auto) (2-6) % Eos % (Auto) (2-4) % Baso % (Auto) (0-1) % Sodium (140-148) mmol/L Potassium (3.6-5.2) mmol/L Chloride (100-108) mmol/L Carbon Dioxide (21-32) mmol/L Anion Gap (5.0-14.0) mmol/L BUN (7-18) mg/dL Creatinine (0.6-1.0) mg/dL Est Cr Clr Drug Dosing mL/min Estimated GFR (MDRD) (>60) Glucose (74-106) mg/dL Calcium (8.5-10.1) mg/dL Total Bilirubin (0.2-1.0) mg/dL AST (15-37) U/L ALT (12-78) U/L Alkaline Phosphatase (46-116) U/L Troponin I < 0.017 (0.000-0.056) ng/mL C-Reactive Protein (0.0-0.3) mg/dL Total Protein (6.4-8.2) g/dL Albumin (3.4-5.0) g/dL Globulin (2.3-3.5) g/dL Albumin/Globulin Ratio (1.2-2.2) Urine Color Yellow (YELLOW) Urine Appearance Cloudy A (CLEAR) Urine pH 7.5 (5.0-8.0) Ur Specific [place] 1.020 (1.008-1.030) Urine Protein Negative (NEGATIVE) mg/dL Urine Glucose (UA) Negative (NEGATIVE) mg/dL Urine Ketones Negative (NEGATIVE) mg/dL Urine Occult Blood Small H (NEGATIVE) Urine Nitrite Negative (NEGATIVE) Urine Bilirubin Negative (NEGATIVE) Urine Urobilinogen 1.0 (0.2-1.0) EU/dL Ur Leukocyte Esterase Trace H (NEGATIVE) Urine RBC 0-5 (0-5) Urine WBC 0-5 (0-5) Ur Epithelial Cells Many Amorphous Sediment Many Urine Bacteria Few Urine Mucus Not seen - Re-Assessments/Exams Free Text/Narrative Re-Assessment/Exam: 06/16/19 17:45 flat and upright was normal, ekg was normal and a nornmal trop, Her urine was clear. Departure - Departure Time of Disposition: 17:46 Disposition: Home, Self-Care 01 Condition: Fair Clinical Impression: Abdominal pain - Discharge Information Referrals: PCP,None [Primary Care Provider] - Care Plan Goals: rtc if problems no acute findings. Sepsis Event Note - Evaluation Sepsis Screening Result: No Definite Risk - Focused Exam Vital Signs: Vital Signs Temp Temp Pulse Pulse Resp BP BP 06/16/19 17:12 36.8 C 72 16 128/73 06/16/19 13:55 36.2 C 65 18 126/71 06/16/19 13:53 36.2 C 70 20 126/71 Pulse Ox 06/16/19 17:12 99 12/18/19 13:55 100 06/16/19 13:53 96 Date Exam was Performed: 06/16/19 Time Exam was Performed: 17:37 - My Orders Last 24 Hours: My Active Orders 06/16/19 16:19 EKG Documentation Completion [RC] ASDIRECTED EKG 12 Lead [EK] Routine - Assessment/Plan Last 24 Hours: My Active Orders 06/16/19 16:19 EKG Documentation Completion [RC] ASDIRECTED EKG 12 Lead [EK] Routine
== END 2019-06-16 18:04 | disposition home or self-care (01) ==
LOC: JP.ED 13:23
DX: R10.9 Unspecified abdominal pain (principal); J44.9 Chronic obstructive pulmonary disease, unspecified; F41.9 Anxiety disorder, unspecified; F32.9 Major depressive disorder, single episode, unspecified; E03.9 Hypothyroidism, unspecified; G30.9 Alzheimer's disease, unspecified; F02.80 Dementia in other diseases classified elsewhere, unspecified severity, without behavioral disturbance, psychotic disturbance, mood disturbance, and anxiety; Z79.82 Long term (current) use of aspirin; Z79.899 Other long term (current) drug therapy; Z91.040 Latex allergy status
CPT/HCPCS: 36415; 74019; 80053; 81001; 84484; 85025; 86140; 93005; 93010; 99284-25

== ENCOUNTER 2021-09-17 14:46 | Emergency (ER) | payer MEDICARE, OTHER ==
[2021-09-17 15:06] VITALS: BP 139/69; PULSE 61
== END 2021-09-17 15:40 ==
LOC: JP.ED 14:46
DX: R10.9 Unspecified abdominal pain (principal); G89.29 Other chronic pain; R07.89 Other chest pain; J44.9 Chronic obstructive pulmonary disease, unspecified; E03.9 Hypothyroidism, unspecified; Z91.040 Latex allergy status; Z79.82 Long term (current) use of aspirin; Z79.899 Other long term (current) drug therapy
CPT/HCPCS: 99283; 99285

== ENCOUNTER 2023-06-28 11:58 | Emergency (ER) | payer MEDICARE, OTHER ==
[2023-06-28] MEDS ORDERED: Sodium Chloride 0.9% 500 ML IV SCH (13:00)
[2023-06-28 13:05] LABS: BASOPHILS ABSOLUTE AUTO 0.05 K/uL (0.00-0.10); BASOPHILS PERCENT AUTO 0.6 % (0.1-1.3); EOSINOPHILS ABSOLUTE AUTO 0.05 K/uL (0.00-0.40); EOSINOPHILS PERCENT AUTO 0.6 % (0.0-5.4); HEMATOCRIT 36.2 % (34.3-46.0); HEMOGLOBIN 13.3 g/dL (11.2-15.5); IMMATURE GRAN ABSOLUTE AUTO 0.06 K/uL (0.00-0.23); IMMATURE GRAN PERCENT AUTO 0.8 % (0.0-0.7); LYMPHOCYTES ABSOLUTE AUTO 1.42 K/uL (0.8-3.3); LYMPHOCYTES PERCENT AUTO 18.1 % (11.4-47.7); MEAN CORPUSCULAR HEMOGLOBIN 29.8 pg (31.6-35.5); MEAN CORPUSCULAR HGB CONC 36.7 g/dL (31.6-35.5); MONOCYTES ABSOLUTE AUTO 0.96 K/uL (0.20-0.90); MONOCYTES PERCENT AUTO 12.2 % (3.3-12.6); NEUTROPHILS PERCENT AUTO 67.7 % (40.0-78.1); PLATELET COUNT,PLT 349 K/uL (130-375); RED BLOOD CELL COUNT 4.47 M/uL (3.77-5.24); WHITE BLOOD CELL COUNT,WBC 7.8 K/uL (3.2-11.0)
[2023-06-28 13:25] LABS: A/G RATIO 1.1 (1.2-2.2); ALANINE AMINOTRANSFERASE,ALT 29 U/L (12-78); ALBUMIN 3.5 g/dL (3.4-5.0); ALKALINE PHOSPHATASE 71 U/L (46-116); ASPARTATE AMNIOTRANSFERASE,AST 37 U/L (15-37); BILIRUBIN TOTAL 0.6 mg/dL (0.2-1.0); BLOOD UREA NITROGEN,BUN 7 mg/dL (7-18); CALCIUM 8.6 mg/dL (8.5-10.1); CARBON DIOXIDE,CO2 32 mmol/L (21-32); CHLORIDE,CL 86 mmol/L (100-108); CREATININE 0.6 mg/dL (0.6-1.0); EST CRCL DRUG DOSING (CG) 56.71 mL/min; ESTIMATED GFR 88 mL/min (>60); GLUCOSE RANDOM 100 mg/dL (74-106); PROTEIN TOTAL,TP 6.7 g/dL (6.4-8.2); SODIUM,NA 122 mmol/L (140-148)
[2023-06-28 13:27] LABS: ANION GAP 6.4 mmol/L (5.0-14.0); POTASSIUM,K 2.4 mmol/L (3.6-5.2)
[2023-06-28] MEDS ORDERED: Potassium Chloride 20 MEQ Tab.ER PO ONE (13:43)
[2023-06-28] MEDS ORDERED: Potassium Chloride 10% 20 MEQ/15 ML Soln 15 ML UD Cup PO ONE (13:43)
[2023-06-28] MEDS ORDERED: Potassium Chloride 20 MEQ in Premix Bag 1 BAG IV ONE (14:15)
[2023-06-28 17:28] VITALS: BP 148/69; PULSE 62
== END 2023-06-28 17:40 ==
LOC: JP.ED 11:58
DX: E87.6 Hypokalemia (principal); E86.0 Dehydration; R53.1 Weakness; J44.9 Chronic obstructive pulmonary disease, unspecified; Z86.16 Personal history of COVID-19; Z91.040 Latex allergy status
CPT/HCPCS: 36415; 80053; 84132; 85025; 96365; 96366; 99284; A9270; J3480; J7030